=== PATIENT | female | born 1960 | race Caucasian/White ===

== ENCOUNTER 2020-05-03 16:07 | Emergency (ER) | payer MEDICARE, MEDICAID, SELFPAY ==
--- NOTE | 2020-05-03 | ECG_ITS ---
Test Reason : CHEST PAIN Blood Pressure : / mmHG Vent. Rate : 095 BPM Atrial Rate : 095 BPM P-R Int : 140 ms QRS Dur : 070 ms QT Int : 392 ms P-R-T Axes : 001 -22 044 degrees QTc Int : 492 ms Normal sinus rhythm Prolonged QT Abnormal ECG When compared with ECG of 10-MAR-2020 12:06, No significant change was found Referred By: Ronald Young Electronically Signed By:BAKARI GATES
[2020-05-03 16:30] VITALS: BP 206/115; BP 217/111; PULSE 98; RESP 20; TEMP 36.3; O2SAT 98; BMI 25.2
--- NOTE | 2020-05-03 17:04 | ED.CHESTPAIN ---
HPI - Chest Pain General Chief Complaint: Chest Pain Time Seen by Provider: 05/03/20 17:02 Source: patient Mode of arrival: ambulatory History of Present Illness HPI narrative: 60-year-old female states of headache chest pain and leg pain and body pain. For the past several days. Patient states was taken off Vicodin several years ago and her pain goes in waves. She states this is the same type of pain she gets chronically however right now it is acute. No diaphoresis no nausea no vomiting. Patient did have dialysis today came in shortly afterwards secondary to full body pain. No fevers no chills. No syncope or dizziness. Patient states primary care doctor took her off her medications and since then has been having to deal with pain Severity: severe Quality: aching Related Data Previous Rx's Medication Instructions Recorded hydrocodone-acetaminophen [Vicodin 1 tab PO BEDTIME PRN #7 tab 05/04/20 HP] Allergies Allergy/AdvReac Type Severity Reaction Status Date / Time heparin [HEPARIN] Allergy Severe HEPARIN-INDUCED Unverified 04/15/20 17:05 THROMBOCYTOPENIA adhesive tape [ADHESIVE TAPE] Allergy Intermediate LOCALIZED Unverified 04/15/20 17:05 BLISTER morphine [MORPHINE] Allergy Intermediate GI UPSET Unverified 04/15/20 17:05 Review of Systems Review of Systems: Yes all other systems are reviewed and are negative Constitutional: Comments: Constitutional : No Weight loss, No Fever, No Chills, No Night Sweats, No Fatigue, No Malaise ENT/Mouth : No Hearing loss, No Ear Pain, No Nasal Congestion, No Sinus Pain, No Hoarseness, No sore throat, No Rhinorrhea, No Swallowing Difficulty Eyes: No Eye Pain, No Swelling, No Redness, No Foreign Body, No Discharge, No Vision Changes Cardiovascular : No Chest Pain, No SOB, No Dyspnea on Exertion, No Orthopnea, No Edema, No Palpitations right-sided Port Respiratory : No Cough, No Sputum, No Wheezing, No Smoke Exposure, No Dyspnea Gastrointestinal : No Nausea, No Vomiting, No Diarrhea, No Constipation, No abdominal Pain, No Hematochezia, No Melena Genitourinary : no irregular bleeding, No Dysuria, No Urinary Frequency, No Hematuria, No Urinary Incontinence, No Urgency, No Flank Pain, No Urinary Flow Changes, No Hesitancy Musculoskeletal : No joint pain, No Myalgias, No Joint Swelling Skin : No Skin Lesions, No rash Neuro : No Weakness, No Numbness, No Paresthesias, No Loss of Consciousness, No Dizziness, No Headache Psych : No Anxiety/Panic, No Depression, No SI/HI/AH/VH, No Social Issues, Heme/Lymph: No Bruising, No Bleeding,No Lymphadenopathy Endocrine : No Polyuria, No Polydipsia, No Temperature Intolerance [facility] Past Medical History Medical History CHF (congestive heart failure) Chronic renal failure Diabetes mellitus, type 2 Hypertension Seizures Social History Social History Smoked in Last 30 Days: No Use of substances other than those prescribed or required for medical reasons: No Any prior treatment program specific to substance use: No Advance Directives: No Advance Directives Information Provided: No Physical Exam Vital Signs and I&O and Narrative: Vital Signs and I&O: Vital Signs Temp 98.9 F 05/03/20 17:09 Pulse 82 05/03/20 23:35 Resp 25 H 05/03/20 23:35 BP 205/97 H 05/03/20 23:35 Pulse Ox 98 05/03/20 22:42 Intake & Output 05/03/20 05/03/20 05/04/20 06:59 18:59 06:59 Weight 54.913 kg Body Mass Index 25.2 reviewed Appearance: Alert. Oriented X3. No acute distress. Eyes: Pupils equal, round and reactive to light. ENT: Pharynx normal. Neck: Normal inspection. Neck supple. CVS: Normal heart rate and rhythm. Pulses normal. right-sided Port Respiratory: No respiratory distress. Breath sounds normal. Abdomen: Soft and nontender. Skin: Skin warm and dry. Normal skin color. Normal skin turgor. Extremities: No lower extremity edema. No lower extremity edema. Neuro: Oriented X 3. No motor deficit. No sensory deficit. Course Course Course Narrative: patient with acute on chronic pain. Patient also states of itchiness all over and she normally has after dialysis and will give Benadryl and p.o. Vicodin patient noted blood pressure is above 200 systolic will give IV labetalol. Reevaluation(s) Reevaluation #1: Re-examine patient feels much better. Patient did receive some p.o. pain medications in which also had labs returned normal and repeat troponin which was negative. I do not feel this patient has acute coronary syndrome. I feel this patient does have acute on chronic pain exacerbation. Secondary to having stopped her pain medications Time: 00:31 [facility] - Chest Pain Medical Records Data Attestation: I reviewed the patient's medical records. Lab Data Attestation: I reviewed the patient's lab results. Result diagrams: 05/03/20 20:15 05/03/20 20:15 Labs: Lab Results 05/03/20 05/03/20 05/03/20 Range/Units 20:15 20:15 20:15 WBC 15.1 H (4.8-10.8) X10*3/uL RBC 3.55 L (4.20-5.50) X10*6/uL Hgb 11.2 L (12.0-16.0) g/dl Hct 33.9 L (37-47) % MCV 95.5 (80-98) fL MCH 31.5 (27.0-33.0) pg MCHC 33.0 (31.0-35.0) g/dl RDW 14.9 (11.0-16.0) % Plt Count 178 (160-400) X10*3/uL MPV 10.2 (9.4-12.3) fL Immature Gran % (Auto) 1.7 H (0.0-0.4) % Neut % (Auto) 69.9 (45-73) % Lymph % (Auto) 18.4 L (20-40) % [place] % (Auto) 8.0 (2-11) % Eos % (Auto) 1.5 (0-4) % Baso % (Auto) 0.5 (0-2) % Neut # (Auto) 10.6 H (2.0-8.3) X10*3/uL Lymph # (Auto) 2.8 (1.2-4.9) X10*3/uL [place] # (Auto) 1.2 (0.1-1.2) X10*3/uL Eos # (Auto) 0.2 (0.0-0.4) X10*3/uL Baso # (Auto) 0.1 (0.0-0.2) X10*3/uL Abs Immat Gran (auto) 0.25 H (0.00-0.03) X10*3/uL Absolute Nucleated RBC 0.110 H (0.0-0.012) X10*3/uL Nucleated RBC % (auto) 0.7 H (0.0-0.2) /100WBC Sodium 137 (135-145) mmol/L Potassium 3.9 (3.3-5.1) mmol/l Chloride 97 (96-108) mmol/L Carbon Dioxide 28 (22-29) mmol/L Anion Gap 16 (12-20) BUN 25 H (9-16) mg/dL Creatinine 2.69 H (0.5-1.4) mg/dL Estim Creat Clear Calc 16.7 Estimated GFR 18 Random Glucose 133 H (60-115) mg/dL Calcium 8.8 (8.4-10.2) mg/dL Troponin I High Sens 42.8 H (<3.5-17.0) ng/L 05/03/20 Range/Units 23:47 WBC (4.8-10.8) X10*3/uL RBC (4.20-5.50) X10*6/uL Hgb (12.0-16.0) g/dl Hct (37-47) % MCV (80-98) fL MCH (27.0-33.0) pg MCHC (31.0-35.0) g/dl RDW (11.0-16.0) % Plt Count (160-400) X10*3/uL MPV (9.4-12.3) fL Immature Gran % (Auto) (0.0-0.4) % Neut % (Auto) (45-73) % Lymph % (Auto) (20-40) % [place] % (Auto) (2-11) % Eos % (Auto) (0-4) % Baso % (Auto) (0-2) % Neut # (Auto) (2.0-8.3) X10*3/uL Lymph # (Auto) (1.2-4.9) X10*3/uL [place] # (Auto) (0.1-1.2) X10*3/uL Eos # (Auto) (0.0-0.4) X10*3/uL Baso # (Auto) (0.0-0.2) X10*3/uL Abs Immat Gran (auto) (0.00-0.03) X10*3/uL Absolute Nucleated RBC (0.0-0.012) X10*3/uL Nucleated RBC % (auto) (0.0-0.2) /100WBC Sodium (135-145) mmol/L Potassium (3.3-5.1) mmol/l Chloride (96-108) mmol/L Carbon Dioxide (22-29) mmol/L Anion Gap (12-20) BUN (9-16) mg/dL Creatinine (0.5-1.4) mg/dL Estim Creat Clear Calc Estimated GFR Random Glucose (60-115) mg/dL Calcium (8.4-10.2) mg/dL Troponin I High Sens 43.7 H (<3.5-17.0) ng/L ECG Data ECG #1: Attestation: I personally reviewed and interpreted this ECG as follows: Pacemaker model: Ninety-five beats per minute is the rate. Rightward axis. Normal sinus Discharge Plan Discharge Clinical Impression: Chronic pain Qualifiers: Chronic pain type: chronic pain syndrome Qualified Code(s): G89.4 - Chronic pain syndrome Chest pain Qualifiers: Chest pain type: other chest pain Qualified Code(s): R07.89 - Other chest pain Patient Disposition: Home, Self-Care Instructions: Chest Pain (ED), Chronic Pain (ED) Additional Instructions: Thank you for visiting the emergency department today. If your symptoms worsen or do not resolve completely please return to the emergency department immediately or call 911. if he have any questions please call your primary care physician Prescriptions: New hydrocodone-acetaminophen [Vicodin HP] 10-300 mg tablet 1 tab PO BEDTIME PRN (Reason: pain) Qty: 7 RF: 0 Referrals: [facility] [Provider Group] - 2 days Interventions: ED Discharge Assessment Last Done: 05/04/20 02:00 Discharge Date/Time: 05/04/20 02:02
[2020-05-03 17:09] VITALS: BP 212/107; PULSE 94; RESP 20; TEMP 37.2; O2SAT 98
[2020-05-03 18:47] VITALS: BP 230/111; PULSE 93
[2020-05-03] MEDS: Labetalol HCL 100 MG/20 ML VIAL 20 MG IVPUSH (18:47)
[2020-05-03] MEDS: HYDROcodone Bit/Acetam 5/325 TABLET 2 TAB PO (18:48)
[2020-05-03] MEDS: diphenhydrAMINE HCL 25 MG TABLET PO (18:48)
[2020-05-03 20:21] LABS: MANUAL DIFF FLAG NO
[2020-05-03 20:22] LABS: Basophils Absolute Auto 0.1 X10*3/uL (0.0-0.2); Basophils Percent Auto 0.5 % (0-2); Eosinophils Absolute Auto 0.2 X10*3/uL (0.0-0.4); Eosinophils Percent Auto 1.5 % (0-4); Hematocrit 33.9 % (37-47); Hemoglobin 11.2 g/dl (12.0-16.0); Imm Gran Abs Auto 0.25 X10*3/uL (0.00-0.03); Imm Gran Pct Auto 1.7 % (0.0-0.4); Lymphocytes Absolute Auto 2.8 X10*3/uL (1.2-4.9); Lymphocytes Percent Auto 18.4 % (20-40); Mean Corpuscular Hemoglobin 31.5 pg (27.0-33.0); Mean Corpuscular Volume 95.5 fL (80-98); Mean Platelet Volume 10.2 fL (9.4-12.3); Monocytes Absolute Auto 1.2 X10*3/uL (0.1-1.2); NRBC Pct Auto 0.7 /100WBC (0.0-0.2); Neutrophils Absolute Auto 10.6 X10*3/uL (2.0-8.3); Neutrophils Percent Auto 69.9 % (45-73); Platelet Count 178 X10*3/uL (160-400); Red Blood Count 3.55 X10*6/uL (4.20-5.50); Red Cell Distribution Width 14.9 % (11.0-16.0); White Blood Count 15.1 X10*3/uL (4.8-10.8)
[2020-05-03 20:50] LABS: Anion Gap 16 (12-20); Blood Urea Nitrogen 25 mg/dL (9-16); Calcium 8.8 mg/dL (8.4-10.2); Carbon Dioxide 28 mmol/L (22-29); Chloride 97 mmol/L (96-108); Creatinine Clr Calc Pharmacy 16.7; Estimated Glomerular Filt Rate 18; Glucose Random 133 mg/dL (60-115); Potassium 3.9 mmol/l (3.3-5.1); Sodium 137 mmol/L (135-145)
[2020-05-03 21:08] LABS: Troponin-I High Sensitivity 42.8 ng/L (<3.5-17.0)
[2020-05-03 21:10] VITALS: BP 169/80; PULSE 81; RESP 14; O2SAT 96
[2020-05-03 22:42] VITALS: BP 185/82; PULSE 82; RESP 16; O2SAT 98
--- NOTE | 2020-05-03 22:49 | PC.NURSE ---
plan for repeat troponin at 11:15
--- NOTE | 2020-05-03 22:51 | PC.NURSE ---
spoke to son regarding patient status. states he will call back at midnight for more information after repeat troponin
[2020-05-03 23:35] VITALS: BP 205/97; PULSE 82; RESP 25
--- NOTE | 2020-05-03 23:36 | PC.NURSE ---
pt given sandwich, pudding and coffee. pt in no distress, watching tv. repeat troponin being drawn.
[2020-05-04 00:25] LABS: Troponin-I High Sensitivity 43.7 ng/L (<3.5-17.0)
== END 2020-05-04 02:02 | disposition home or self-care (01) ==
PROVIDERS: Emergency Provider Emergency Medicine
DX: G89.4 Chronic pain syndrome (principal); R07.89 Other chest pain; I10 Essential (primary) hypertension; E11.9 Type 2 diabetes mellitus without complications; Z79.899 Other long term (current) drug therapy
CPT/HCPCS: 36415; 80048; 84484; 85025; 93005; 93010; 96374; 99285; Q0163

== ENCOUNTER 2020-05-25 12:20 | Emergency (ER) | payer MEDICARE, MEDICAID, SELFPAY ==
[2020-05-25 12:43] VITALS: BP 196/69; PULSE 91; RESP 16; TEMP 36.9; O2SAT 99; BMI 26.8
--- NOTE | 2020-05-25 13:35 | ED_ITS ---
HPI - General Adult General Chief complaint: General Medical Stated complaint: BLEEDING AT SITE, HIGH BS Time Seen by Provider: 05/25/20 13:35 Source: patient and EMS Mode of arrival: EMS Limitations: no limitations History of Present Illness HPI narrative: 52-year-old female with past medical history that is significant for PAST MEDICAL HISTORY: 1. End-stage renal disease on hemodialysis Sunday, Sunday, Sunday. 2. History of HIT. 3. History of stroke with residual left-sided weakness. 4. Insulin-requiring type 2 diabetes. 5. Hypertension. 6. Dyslipidemia. 7. Fibromyalgia. 8. History of legal blindness. 9. Depression. 10. Heart failure with preserved ejection fraction. 11. Remote history of seizure activity, previously on Trileptal. 12. Recent admission in September 2019 for seizure, thought to be related to hypoglycemia in the setting of a point of care of 25. 13. History of ptosis and amblyopia of the left eye. PAST SURGICAL HISTORY: 1. Multiple C-sections. 2. Right eye cataract extraction. she saw endovascular surgery today for replacement her right PermCath which she had done 3 hours prior to arrival states she got home after and notice some slight bleeding from the site. States this made her concerned and called her dialysis center who told her to come to the emergency room. Patient very limited historian in terms of she does not know who did the PermCath and does not know the dialysis center she goes to but knows the address. She otherwise denies any pain discomfort. No shortness of breath. Onset (ago): hour(s) Treatments prior to arrival: none Related Data Previous Rx's Medication Instructions Recorded hydrocodone-acetaminophen [Vicodin 1 tab PO BEDTIME PRN #7 tab 05/04/20 HP] Allergies Allergy/AdvReac Type Severity Reaction Status Date / Time heparin [HEPARIN] Allergy Severe HEPARIN-INDUCED Unverified 04/15/20 17:05 THROMBOCYTOPENIA adhesive tape [ADHESIVE TAPE] Allergy Intermediate LOCALIZED Unverified 04/15/20 17:05 BLISTER morphine [MORPHINE] Allergy Intermediate GI UPSET Unverified 04/15/20 17:05 warfarin Allergy Mild Unknown Verified 05/25/20 12:42 Review of Systems Review of Systems: Constitutional: No Weight loss, No Fever, No Chills, No Night Sweats, No Fatigue, No Malaise ENT/Mouth: No Hearing loss, No Ear Pain, No Nasal Congestion, No Sinus Pain, No Hoarseness, No sore throat, No Rhinorrhea, No Swallowing Difficulty Eyes: No Eye Pain, No Swelling, No Redness, No Foreign Body, No Discharge, No Vision Changes Cardiovascular: No Chest Pain, No SOB, No Dyspnea on Exertion, No Orthopnea, No Edema, No Palpitations Respiratory: No Cough, No Sputum, No Wheezing, No Smoke Exposure, No Dyspnea Gastrointestinal: No Nausea, No Vomiting, No Diarrhea, No Constipation, No abdominal Pain, No Hematochezia, No Melena Genitourinary: no irregular bleeding, No Dysuria, No Urinary Frequency, No He maturia, No Urinary Incontinence, No Urgency, No Flank Pain, No Urinary Flow Changes, No Hesitancy Musculoskeletal: No joint pain, No Myalgias, No Joint Swelling Skin: No Skin Lesions, No rash Neuro: No Weakness, No Numbness, No Paresthesias, No Loss of Consciousness, No Dizziness, No Headache Heme/Lymph: No Bruising, No Bleeding,No Lymphadenopathy Endocrine: No Polyuria, No Polydipsia, No Temperature Intolerance Yes all other systems are reviewed and are negative [facility] Past Medical History Attestation statement: The following information was validated with the patient. Medical History CHF (congestive heart failure) Chronic renal failure Diabetes mellitus, type 2 Hypertension Seizures Surgical History H/O section H/O removal of cyst History of carpal tunnel surgery of left wrist History of phacoemulsification of cataract of right eye with intraocular lens implantation Family History Family History (Updated 05/06/20 @ 08:25 by Trish Echavarria MA) Father Arthritis Mother Cancer Diabetes Brother No problems noted. Sister No problems noted. Sister No problems noted. Son No problems noted. Son No problems noted. Daughter No problems noted. Daughter No problems noted. Daughter Thyroid condition Social History Social History (Updated 05/06/20 @ 08:26 by Trish Echavarria MA) Alcohol intake: unknown Smoking Status: Never smoker Use of substances other than those prescribed or required for medical reasons: No Advance Directives: No Advance Directives Information Provided: No Physical Exam Vital Signs: Vital Signs: Vital Signs Temp Pulse Resp BP Pulse Ox 05/25/20 15:11 85 18 140/117 H 05/25/20 12:43 98.5 F 91 16 196/69 H 99 Body Mass Index 26.8 Reviewed Const: General: cooperative and healthy appearing; No acute distress or in toxicated appearing Nutritional Appearance: average body habitus Orientation/consciousness: patient oriented x3 HENMT: Head: Yes normal to inspection Ears: hearing grossly normal bilaterally Eyes: General: appearance normal, both eyes and all related structures Visual Magana: normal visual magana by confrontation Neck: Neck: Yes normal visual inspection and No tender Thyroid: Thyroid normal Chest: Chest palpation & inspection: normal inspection of the chest Chest/axillae images: 1. site of PermCath. No active bleeding. Slight hematoma just superior to the incision site. Resp: Effort & Inspection: normal respiratory effort Cardio: Jugular venous distension: no JVD GI: Inspection: Yes normal to inspection Percussion: Yes normal to percussion Auscultation: normal bowel sounds Skin: General skin exam: no rashes or lesions noted Neuro: General: patient oriented x3 Extrem: General: Yes normal to inspection Course Course Course Narrative: Offers no complaints here. Uncomfortable. POC at home prior to arrival was 200. Chest x-ray no acute disease / pneumo. Were guided replacement of right-sided PermCath with. Slight hematoma to the right chest wall/ case discussed with vascular surgery follow-up in office okay for dialysis use. RN called dialysis center has appointment in the morning. Consultations Consultation #1: Case discussed with endovascular surgeon Dr. Schneider; were guided primary catheterization did use tPA as she has heparin allergy. slight hematoma to be expected, aware no active bleeding at this time. Okay for use of primary CT with dialysis and to follow-up in the office. Medical Decision Making Lab Data Result diagrams: 05/25/20 14:24 05/25/20 14:24 Labs: Lab Results 05/25/20 05/25/20 Range/Units 14:24 14:24 WBC 9.8 (4.8-10.8) X10*3/uL RBC 2.97 L (4.20-5.50) X10*6/uL Hgb 9.3 L (12.0-16.0) g/dl Hct 27.8 L (37-47) % MCV 93.6 (80-98) fL MCH 31.3 (27.0-33.0) pg MCHC 33.5 (31.0-35.0) g/dl RDW 14.9 (11.0-16.0) % Plt Count 120 L D (160-400) X10*3/uL MPV Not Reportable Immature Gran % (Auto) 0.5 H (0.0-0.4) % Neut % (Auto) 69.8 (45-73) % Lymph % (Auto) 20.5 (20-40) % [place] % (Auto) 6.5 (2-11) % Eos % (Auto) 2.1 (0-4) % Baso % (Auto) 0.6 (0-2) % Lymph # (Auto) 2.0 (1.2-4.9) X10*3/uL [place] # (Auto) 0.6 (0.1-1.2) X10*3/uL Eos # (Auto) 0.2 (0.0-0.4) X10*3/uL Baso # (Auto) 0.1 (0.0-0.2) X10*3/uL Abs Immat Gran (auto) 0.05 H (0.00-0.03) X10*3/uL Absolute Neuts (auto) 6.9 (2.0-8.3) X10*3/uL Absolute Nucleated RBC 0.000 (0.0-0.012) X10*3/uL Nucleated RBC % (auto) 0.0 (0.0-0.2) /100WBC Smear Tech's Comments VERIFIED Sodium Cancelled Potassium Cancelled Chloride Cancelled Carbon Dioxide Cancelled Anion Gap Cancelled BUN Cancelled Creatinine Cancelled Estim Creat Clear Calc Cancelled Estimated GFR Cancelled Random Glucose Cancelled Calcium Cancelled Total Bilirubin Cancelled AST Cancelled ALT Cancelled Alkaline Phosphatase Cancelled Total Protein Cancelled Albumin Cancelled Discharge Plan Discharge Clinical Impression: Visit for wound check Patient Disposition: Home, Self-Care Instructions: Hematoma (ED), Perma-cath Placement (DC) Additional Instructions: Dry sterile dressing Compresses Follow-up with Dr. Schneider's office Have dialysis tomorrow Return if any concerns or worsening symptoms Thank you Prescriptions: No Action hydrocodone-acetaminophen [Vicodin HP] 10-300 mg tablet 1 tab PO BEDTIME PRN (Reason: pain) Qty: 7 RF: 0 Referrals: Physician,Unknown [Primary Care Provider] - 2 days ( Dr. Lissett Rojo ) Interventions: ED Discharge Assessment Last Done: 05/25/20 16:00
--- NOTE | 2020-05-25 13:46 | XR_ITS ---
EXAMINATION: XR CHEST CLINICAL INFORMATION: Right-sided permacath COMPARISON: None TECHNIQUE: 2 views of the chest were obtained. FINDINGS: Both lungs are fairly well-expanded and clear of acute process. Heart size and pulmonary vascularity is normal. There is right central dialysis catheter with its tip in the right atrium. No gross bony abnormality seen. XR/XR chest 2V IMPRESSION: Unremarkable chest exam.
[2020-05-25 14:51] LABS: Basophils Absolute Auto 0.1 X10*3/uL (0.0-0.2); Basophils Percent Auto 0.6 % (0-2); Eosinophils Absolute Auto 0.2 X10*3/uL (0.0-0.4); Eosinophils Percent Auto 2.1 % (0-4); Hematocrit 27.8 % (37-47); Hemoglobin 9.3 g/dl (12.0-16.0); Imm Gran Abs Auto 0.05 X10*3/uL (0.00-0.03); Imm Gran Pct Auto 0.5 % (0.0-0.4); Lymphocytes Percent Auto 20.5 % (20-40); MANUAL DIFF FLAG SCAN; Mean Corpuscular HGB Conc 33.5 g/dl (31.0-35.0); Mean Corpuscular Hemoglobin 31.3 pg (27.0-33.0); Mean Corpuscular Volume 93.6 fL (80-98); Monocytes Absolute Auto 0.6 X10*3/uL (0.1-1.2); Monocytes Percent Auto 6.5 % (2-11); Neutrophils Absolute Auto 6.9 X10*3/uL (2.0-8.3); Neutrophils Percent Auto 69.8 % (45-73); PLT CLUMP 1; Red Blood Count 2.97 X10*6/uL (4.20-5.50); Red Cell Distribution Width 14.9 % (11.0-16.0); SCAN SMEAR FLAG 1
[2020-05-25 15:11] VITALS: BP 140/117; PULSE 85; RESP 18
[2020-05-25 15:35] LABS: Platelet Count 120 X10*3/uL (160-400); White Blood Count 9.8 X10*3/uL (4.8-10.8)
[2020-05-25 15:37] LABS: SLIDE REVIEW VERIFIED
== END 2020-05-25 17:12 | disposition home or self-care (01) ==
PROVIDERS: Nurse Practitioner Primary Care; Emergency Provider Emergency Medicine
DX: Z48.01 Encounter for change or removal of surgical wound dressing (principal); Z79.899 Other long term (current) drug therapy
CPT/HCPCS: 36415; 71046; 85025; 99283; 99284

== ENCOUNTER 2020-06-29 02:54 | Inpatient (IN) | payer MEDICARE, MEDICAID, SELFPAY ==
[2020-06-29] VITALS (12 sets, daily range): BP systolic 135–180; BP diastolic 58–89; PULSE 81–98; RESP 15–19; TEMP 36.4–37.7; O2SAT 96–100; BMI 20.3
--- NOTE | 2020-06-29 03:46 | ECG_ITS ---
Test Reason : BASELINE Blood Pressure : / mmHG Vent. Rate : 099 BPM Atrial Rate : 099 BPM P-R Int : 136 ms QRS Dur : 072 ms QT Int : 382 ms P-R-T Axes : 005 -34 099 degrees QTc Int : 490 ms Normal sinus rhythm Left axis deviation Nonspecific ST and T wave abnormality Prolonged QT Abnormal ECG When compared with ECG of 03-MAY-2020 17:01, Inverted T waves have replaced nonspecific T wave abnormality in Lateral leads Referred By: Amita Rojas Electronically Signed By:JASIEL HERBERT MD
--- NOTE | 2020-06-29 03:47 | XR_ITS ---
EXAMINATION: XR CHEST CLINICAL INFORMATION: Dialysis catheter removed COMPARISON: 05/25/2020 TECHNIQUE: Frontal view of the chest was obtained. FINDINGS: Lung volumes are symmetric. No focal consolidation is seen. No evidence of pneumothorax, pleural effusion, or pulmonary edema. Cardiac size is within normal limits. Calcification is present at the aortic arch. No acute osseous findings are seen. XR/XR chest 1V IMPRESSION: No acute cardiopulmonary findings.
[2020-06-29 04:23] LABS: Basophils Absolute Auto 0.1 X10*3/uL (0.0-0.2); Basophils Percent Auto 0.4 % (0-2); Eosinophils Percent Auto 0.1 % (0-4); Hematocrit 35.3 % (37-47); Hemoglobin 11.9 g/dl (12.0-16.0); Imm Gran Abs Auto 0.13 X10*3/uL (0.00-0.03); Imm Gran Pct Auto 0.6 % (0.0-0.4); Lymphocytes Absolute Auto 1.7 X10*3/uL (1.2-4.9); Lymphocytes Percent Auto 7.3 % (20-40); MANUAL DIFF FLAG NO; Mean Corpuscular HGB Conc 33.7 g/dl (31.0-35.0); Mean Corpuscular Hemoglobin 31.6 pg (27.0-33.0); Mean Corpuscular Volume 93.9 fL (80-98); Mean Platelet Volume 11.3 fL (9.4-12.3); Monocytes Absolute Auto 1.3 X10*3/uL (0.1-1.2); Monocytes Percent Auto 5.8 % (2-11); Neutrophils Absolute Auto 19.5 X10*3/uL (2.0-8.3); Neutrophils Percent Auto 85.8 % (45-73); Platelet Count 192 X10*3/uL (160-400); Red Blood Count 3.76 X10*6/uL (4.20-5.50); Red Cell Distribution Width 15.1 % (11.0-16.0); White Blood Count 22.7 X10*3/uL (4.8-10.8)
[2020-06-29 04:43] LABS: Lactic Acid 1.2 mmol/L (0.5-2.0)
[2020-06-29 04:48] LABS: Glucose, Whole Blood 295 mg/dL (60-115)
[2020-06-29 04:54] LABS: Alanine Aminotransferase 12 U/L (0-31); Alkaline Phosphatase 98 U/L (39-117); Anion Gap 20 (12-20); Aspartate Amino Transferase 25 U/L (5-31); Bilirubin Total 0.5 mg/dL (0.0-1.0); Blood Urea Nitrogen 28 mg/dL (9-16); Calcium 9.2 mg/dL (8.4-10.2); Carbon Dioxide 26 mmol/L (22-29); Chloride 89 mmol/L (96-108); Creatinine Clr Calc Pharmacy 16.2; Estimated Glomerular Filt Rate 15; Glucose Random 294 mg/dL (60-115); Lipase 23 U/L (8-78); Potassium 3.9 mmol/l (3.3-5.1); Sodium 131 mmol/L (135-145); Total Protein 8.3 g/dL (6.5-8.0)
--- NOTE | 2020-06-29 04:58 | ED_ITS ---
HPI - General Adult General Chief complaint: General Medical Stated complaint: Dialysis port fell out Time Seen by Provider: 06/29/20 03:46 Source: patient and family ( daughter) Mode of arrival: ambulatory Limitations: no limitations History of Present Illness HPI narrative: This is a 60-year-old female with extensive past medical history of end-stage renal disease on dialysis and had dialysis therapy yesterday via dialysis catheter that at that time was located in the right anterior chest. Patient states that the catheter fell out because it was not attached properly. She denies any associated fevers, chills but is experiencing nausea and vomiting. Related Data Home Medications Medication Instructions Recorded Confirmed bumetanide 1 mg tablet 1 mg PO DAILY 06/03/20 06/29/20 cholecalciferol (vitamin D3) 50 50 mcg PO DAILY 06/03/20 06/29/20 mcg (2,000 unit) capsule diphenhydramine HCl 25 mg capsule 50 mg PO DAILY PRN 06/03/20 06/29/20 insulin aspart U-100 100 unit/mL 8 unit SUBCUT TID 06/03/20 06/29/20 subcutaneous solution insulin detemir U-100 100 unit/mL 26 unit SUBCUT DAILY 06/03/20 06/29/20 subcutaneous solution insulin syringe-needle U-100 0.3 #10 ea 06/03/20 06/03/20 mL 31 gauge x 16 lisinopril 5 mg tablet 20 mg PO BEDTIME 06/03/20 06/29/20 quetiapine 200 mg tablet 200 mg PO BEDTIME 06/03/20 06/29/20 sevelamer carbonate 800 mg tablet 800 mg PO TID 06/03/20 06/29/20 trazodone 100 mg tablet 100 mg PO BEDTIME 06/03/20 06/29/20 vitamin B complex and vitamin C 1 cap PO DAILY 06/03/20 06/29/20 no.20-folic acid 1 mg capsule Previous Rx's Medication Instructions Recorded hydrocodone-acetaminophen [Vicodin 1 tab PO BEDTIME PRN #7 tab 05/04/20 HP] pravastatin 40 mg tablet 40 mg PO DAILY #90 tab 06/08/20 Allergies Allergy/AdvReac Type Severity Reaction Status Date / Time heparin [HEPARIN] Allergy Severe HEPARIN-INDUCED Verified 06/29/20 07:33 THROMBOCYTOPENIA adhesive tape [ADHESIVE TAPE] Allergy Intermediate LOCALIZED Verified 06/29/20 07:33 BLISTER morphine [MORPHINE] Allergy Intermediate GI UPSET Verified 06/29/20 07:33 warfarin Allergy Mild Unknown Verified 06/29/20 07:33 Review of Systems Review of Systems: Pertinent positives and negatives as stated in HPI 10 point review of systems otherwise negative. PMFSH Past Medical History Source: nursing notes reviewed Medical History CHF (congestive heart failure) Chronic renal failure Diabetes mellitus, type 2 Hypertension Seizures Surgical History H/O section H/O removal of cyst History of carpal tunnel surgery of left wrist History of phacoemulsification of cataract of right eye with intraocular lens implantation Family History Family History Father Arthritis Mother Cancer Diabetes Brother No problems noted. Sister No problems noted. Sister No problems noted. Son No problems noted. Son No problems noted. Daughter No problems noted. Daughter No problems noted. Daughter Thyroid condition Social History Social History Alcohol intake: never Smoking Status: Former smoker Use of substances other than those prescribed or required for medical reasons: No Advance Directives: No Advance Directives Information Provided: Yes Physical Exam Vital Signs: Vital Signs: Last Vital Signs Temp 98.6 F 06/29/20 06:51 Pulse 95 06/29/20 06:51 Resp 18 06/29/20 06:51 BP 140/69 H 06/29/20 06:51 Pulse Ox 100 06/29/20 06:51 Body Mass Index 20.3 VITAL SIGNS: Reviewed. GENERAL: Well developed, well nourished, in no acute distress. HEAD: Normocephalic/atraumatic, EYES: PERRLA, EOMI intact without pain, no nystagmus/pallor/icterus noted EARS: Ext canals without abnormality, TMs non-bulging and non-erythematous NOSE: Nares patent bilateral OROPHARYNX: no oral lesions noted, posterior pharynx clear and non-erythematous without noted tonsillar enlargement/erythema/exudates NECK: Supple, no adenopathy LUNGS: Normal breath sounds. No adventitious sounds or accessory muscle use. SpO2<100> CHEST WALL: At the right anterior chest there is a significantly macerated, indurated area at the insertion site where the dialysis catheter was previously located with pus draining and further expressed on palpation. Patient brought dialysis catheter in with her. CARDIOVASCULAR: Regular rate and rhythm without noted murmurs, no JVD or lower extremity edema. ABDOMEN: Soft, non-tender, non-distended with bowel sounds. No rigidity. No guarding. No palpable masses or hernias noted MUSCULOSKELETAL: No tenderness, deformities, or effusions noted on gross inspection. EXTREMITIES: No cyanosis, clubbing or edema. SKIN: Inspection of the skin reveals no rashes, ulcerations, jaundice, pallor, or petechiae. NEUROLOGIC: Alert and oriented x 4. Strength and sensation to light touch were grossly intact x 4. Course Course Course Narrative: This is a 60-year-old female with history and clinical presentation concerning for line infection and further supported with a noted leukocytosis and obvious purulence on clinical exam. Blood cultures, lactic acid, antibiotics were provided but sepsis fluids were held at this time due to concerns for fluid overload in a dialysis patient without current dialysis access. I discussed case with the inpatient hospitalist team who is agreeable for admission and agrees with chest CT to evaluate chest wall. Medical Decision Making Lab Data Result diagrams: 06/29/20 04:15 06/29/20 04:16 Labs: Lab Results 06/29/20 06/29/20 06/29/20 Range/Units 04:15 04:15 04:16 WBC 22.7 H (4.8-10.8) X10*3/uL RBC 3.76 L D (4.20-5.50) X10*6/uL Hgb 11.9 L D (12.0-16.0) g/dl Hct 35.3 L D (37-47) % MCV 93.9 (80-98) fL MCH 31.6 (27.0-33.0) pg MCHC 33.7 (31.0-35.0) g/dl RDW 15.1 (11.0-16.0) % Plt Count 192 D (160-400) X10*3/uL MPV 11.3 (9.4-12.3) fL Immature Gran % (Auto) 0.6 H (0.0-0.4) % Neut % (Auto) 85.8 H (45-73) % Lymph % (Auto) 7.3 L (20-40) % [place] % (Auto) 5.8 (2-11) % Eos % (Auto) 0.1 (0-4) % Baso % (Auto) 0.4 (0-2) % Lymph # (Auto) 1.7 (1.2-4.9) X10*3/uL [place] # (Auto) 1.3 H (0.1-1.2) X10*3/uL Eos # (Auto) 0.0 (0.0-0.4) X10*3/uL Baso # (Auto) 0.1 (0.0-0.2) X10*3/uL Abs Immat Gran (auto) 0.13 H (0.00-0.03) X10*3/uL Absolute Neuts (auto) 19.5 H (2.0-8.3) X10*3/uL Absolute Nucleated RBC 0.000 (0.0-0.012) X10*3/uL Nucleated RBC % (auto) 0.0 (0.0-0.2) /100WBC Sodium 131 L (135-145) mmol/L Potassium 3.9 (3.3-5.1) mmol/l Chloride 89 L (96-108) mmol/L Carbon Dioxide 26 (22-29) mmol/L Anion Gap 20 (12-20) BUN 28 H (9-16) mg/dL Creatinine 3.20 H (0.5-1.4) mg/dL Estim Creat Clear Calc 16.2 Estimated GFR 15 POC Glucose (60-115) mg/dL Random Glucose 294 H D (60-115) mg/dL Lactic Acid 1.2 (0.5-2.0) mmol/L Calcium 9.2 (8.4-10.2) mg/dL Total Bilirubin 0.5 (0.0-1.0) mg/dL AST 25 (5-31) U/L ALT 12 (0-31) U/L Alkaline Phosphatase 98 (39-117) U/L Total Protein 8.3 H (6.5-8.0) g/dL Albumin 4.0 (3.5-5.0) g/dL Lipase 23 (8-78) U/L Urine Color Urine Appearance Urine pH (5.0-8.0) Ur Specific [place] (1.005-1.025) Urine Protein (NEG-TRACE) MG/DL Urine Glucose (UA) (NEG) MG/DL Urine Ketones (NEG) MG/DL Urine Blood (NEG) Urine Nitrite (NEG) Ur Leukocyte Esterase (NEG) Urine RBC (0) /HPF Urine WBC (0-4) /HPF Ur Squamous Epith Cells /LPF Urine Bacteria /LPF Urine Mucus /LPF Coronavirus (PCR) (Negative) Influenza Type A (PCR) (Negative) Influenza Type B (PCR) (Negative) RSV RNA Qual (PCR) (Negative) 06/29/20 06/29/20 06/29/20 Range/Units 04:44 05:17 06:49 WBC (4.8-10.8) X10*3/uL RBC (4.20-5.50) X10*6/uL Hgb (12.0-16.0) g/dl Hct (37-47) % MCV (80-98) fL MCH (27.0-33.0) pg MCHC (31.0-35.0) g/dl RDW (11.0-16.0) % Plt Count (160-400) X10*3/uL MPV (9.4-12.3) fL Immature Gran % (Auto) (0.0-0.4) % Neut % (Auto) (45-73) % Lymph % (Auto) (20-40) % [place] % (Auto) (2-11) % Eos % (Auto) (0-4) % Baso % (Auto) (0-2) % Lymph # (Auto) (1.2-4.9) X10*3/uL [place] # (Auto) (0.1-1.2) X10*3/uL Eos # (Auto) (0.0-0.4) X10*3/uL Baso # (Auto) (0.0-0.2) X10*3/uL Abs Immat Gran (auto) (0.00-0.03) X10*3/uL Absolute Neuts (auto) (2.0-8.3) X10*3/uL Absolute Nucleated RBC (0.0-0.012) X10*3/uL Nucleated RBC % (auto) (0.0-0.2) /100WBC Sodium (135-145) mmol/L Potassium (3.3-5.1) mmol/l Chloride (96-108) mmol/L Carbon Dioxide (22-29) mmol/L Anion Gap (12-20) BUN (9-16) mg/dL Creatinine (0.5-1.4) mg/dL Estim Creat Clear Calc Estimated GFR POC Glucose 295 H (60-115) mg/dL Random Glucose (60-115) mg/dL Lactic Acid (0.5-2.0) mmol/L Calcium (8.4-10.2) mg/dL Total Bilirubin (0.0-1.0) mg/dL AST (5-31) U/L ALT (0-31) U/L Alkaline Phosphatase (39-117) U/L Total Protein (6.5-8.0) g/dL Albumin (3.5-5.0) g/dL Lipase (8-78) U/L Urine Color YELLOW Urine Appearance CLEAR Urine pH 7.0 (5.0-8.0) Ur Specific [place] 1.020 (1.005-1.025) Urine Protein 3+ H (NEG-TRACE) MG/DL Urine Glucose (UA) >=1000 H (NEG) MG/DL Urine Ketones NEG (NEG) MG/DL Urine Blood TRACE (NEG) Urine Nitrite NEG (NEG) Ur Leukocyte Esterase NEG (NEG) Urine RBC 5-9 H (0) /HPF Urine WBC 1-4 (0-4) /HPF Ur Squamous Epith Cells 2+ /LPF Urine Bacteria TRACE /LPF Urine Mucus 1+ /LPF Coronavirus (PCR) NEGATIVE (Negative) Influenza Type A (PCR) NEGATIVE (Negative) Influenza Type B (PCR) NEGATIVE (Negative) RSV RNA Qual (PCR) NEGATIVE (Negative) ECG Data Attestation: I personally reviewed and interpreted this ECG as follows: Prior ECG tracings: available for review ( 05/03/2020 no acute changes on comparison) Interpretation: sinus rhythm, HR -99, no evidence for acute ischemia, RI/QRS are within normal limits, QTC is mildly prolonged. Discharge Plan Discharge Clinical Impression: Chest wall abscess Sepsis Qualifiers: Sepsis type: sepsis due to unspecified organism Sepsis acute organ dysfunction status: unspecified Qualified Code(s): A41.9 - Sepsis, unspecified organism Patient Disposition: Admitted As Inpatient
[2020-06-29] MEDS: cefTRIAXone sodium 1 GM in 0.9 % Sodium Chloride 50 ML IV (05:14)
[2020-06-29 06:00] LABS: Influenza A PCR NEGATIVE (Negative); Influenza B PCR NEGATIVE (Negative); Resp Syncy Virus RNA Qual PCR NEGATIVE (Negative); SARS COV2 PCR INHOUSE NEGATIVE (Negative)
[2020-06-29 06:56] LABS: Glucose Urine UA >=1000 MG/DL (NEG); Leukocyte Esterase Urine NEG (NEG); Nitrite Urine NEG (NEG); Urine Blood TRACE (NEG); Urine Ketones NEG (NEG); Urine Protein 3+ MG/DL (NEG-TRACE)
[2020-06-29 06:58] LABS: Appearance Urine CLEAR; Color Urine YELLOW
--- NOTE | 2020-06-29 07:02 | CT_ITS ---
EXAMINATION: CT CHEST WITHOUT CONTRAST CLINICAL INFORMATION: Right chest wall abscess COMPARISON: Previous chest x-rays most recent from earlier the same day and chest CT March 2018 TECHNIQUE: Multidetector volumetric CT imaging of the chest was done. Axial MIP volume rendering provided. Sagittal and coronal reformatted images were obtained. This CT examination was performed using dose optimization techniques as appropriate, variously including the following: *Automated exposure control *Adjustment of mA and/or kV according to patient size (this includes techniques or standardized protocols for targeted exams where dose is matched to indication/reason for exam; i.e. 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 There is a 3 mm calcified left lower lobe nodule axial image 267 series 4. The lungs are otherwise clear. MEDIASTINUM: There is mediastinal lymphadenopathy. Larger lymph nodes are upper normal in size. These have a fatty julia suggestive of reactive lymphadenopathy. The heart does not appear enlarged. There is a trace pericardial effusion or pericardial thickening. There is mild coronary artery calcification. The thoracic aorta is calcified but normal in caliber. The visualized thyroid gland is unremarkable. PLEURA: There is no pleural effusion. No pleural mass or thickening. AXILLA: There is stranding of the fat overlying the manubrium, medial bilateral pectoral muscles and upper anterior chest wall. There is some right upper chest skin thickening. No fluid collection/abscess is seen. There are no enlarged axillary lymph nodes. UPPER ABDOMEN: There is evidence of severe atherosclerotic disease with vessel wall calcification. OSSEOUS STRUCTURES: There are degenerative changes of the spine. CT/CT chest wo con IMPRESSION: Fat stranding overlying the manubrium, medial bilateral pectoral muscles and upper anterior chest wall suggestive of cellulitis. No fluid collection/abscess is seen. Mediastinal lymphadenopathy, likely reactive. Severe atherosclerotic disease with arterial vessel wall calcification.
--- NOTE | 2020-06-29 07:02 | PC.NURSE ---
sr on monitor, skin wpd, c/o suggs no other complaints,
[2020-06-29 07:11] LABS: Bacteria Urine TRACE /LPF; Mucus Urine 1+ /LPF; Squamous Epithelial Cell Urine 2+ /LPF
[2020-06-29] MEDS: vancomycin HCL 1,000 MG in 0.9 % Sodium Chloride 250 ML 270 MG IV (07:31)
--- NOTE | 2020-06-29 11:16 | PC.NURSE ---
patient a&ox3, cafeteria monitor nsr 90s, vss, poc 265, no c/o pain or discomfort at this time, will continue to monitor
[2020-06-29 11:20] LABS: Glucose, Whole Blood 265 mg/dL (60-115)
--- NOTE | 2020-06-29 12:25 | PM.IMHP ---
History of Present Illness Date of Service: 06/29/20 Chief Complaint: Temporarly dialysis catheter fell out with concern for site infection 60 year female with ESRD on Hemodialysis Sunday, Sunday and Fridays and followed by [facility]. She presented to the ED out of concern for her dialysis catheter located in right chest fell out. She woke this morning and noted the catheter was out. She was last dialysed Sunday (yesterday) 06/28. She states there has been concern of site been infected and was draining, she denies fever or chils and no other symptms of covid. her WBC is 22.7K. Imaging show no abscess but likely cellulitis where catheter was. She is given Ceftriaxone and Vancomyin, cultures sent. Covid negative. Review of Systems Review of Systems: Gen: no fever Resp: no sob, no cough CV: no chest, no LUO, no leg edema GI: No n/v, no abd pain Neuro: No confusion Yes all other systems are reviewed and are negative [facility] Medical History (Updated 06/29/20 @ 12:33 by Stevie Arshad MD) CHF (congestive heart failure) Chronic renal failure Diabetes mellitus, type 2 ESRD (end stage renal disease) Hypertension Seizures Functional capacity: independent ambulation Family History Father Arthritis Mother Cancer Diabetes Brother No problems noted. Sister No problems noted. Sister No problems noted. Son No problems noted. Son No problems noted. Daughter No problems noted. Daughter No problems noted. Daughter Thyroid condition Surgical History H/O section H/O removal of cyst History of carpal tunnel surgery of left wrist History of phacoemulsification of cataract of right eye with intraocular lens implantation Social History Household Members: Spouse Housing: Apartment Do you presently have visiting nurse or other home services: Yes ([employer]) Alcohol intake: never Smoking Status: Former smoker Use of substances other than those prescribed or required for medical reasons: No Currently Displaying Signs/Symptoms of Drug Intoxication Withdrawal: No Any prior treatment program specific to substance use: No Have you been hit, kicked, punched, or otherwise hurt by someone within the past year? If so, by whom?: No Do you feel safe in your current relationship?: Yes Is there a partner from a previous relationship who is making you feel unsafe now?: No Are you made to feel afraid or neglected: No Advance Directives: No Advance Directives Information Provided: Yes Do you have thoughts of harming others: None Do you have a plan to hurt others: No Plan Recently lost weight without trying: No Meds Allergies Allergy/AdvReac Type Severity Reaction Status Date / Time heparin [HEPARIN] Allergy Severe HEPARIN-INDUCED Verified 06/29/20 07:33 THROMBOCYTOPENIA adhesive tape [ADHESIVE TAPE] Allergy Intermediate LOCALIZED Verified 06/29/20 07:33 BLISTER morphine [MORPHINE] Allergy Intermediate GI UPSET Verified 06/29/20 07:33 warfarin Allergy Mild Unknown Verified 06/29/20 07:33 Home Medications Medication Instructions Recorded Confirmed Type bumetanide 1 mg tablet 1 mg PO DAILY 06/03/20 06/29/20 History cholecalciferol (vitamin D3) 50 50 mcg PO DAILY 06/03/20 06/29/20 History mcg (2,000 unit) capsule diphenhydramine HCl 25 mg capsule 50 mg PO DAILY PRN 06/03/20 06/29/20 History insulin aspart U-100 100 unit/mL 8 unit SUBCUT TID 06/03/20 06/29/20 History subcutaneous solution insulin detemir U-100 100 unit/mL 26 unit SUBCUT DAILY 06/03/20 06/29/20 History subcutaneous solution insulin syringe-needle U-100 0.3 #10 ea 06/03/20 06/03/20 History mL 31 gauge x 12/12 lisinopril 5 mg tablet 20 mg PO BEDTIME 06/03/20 06/29/20 History quetiapine 200 mg tablet 200 mg PO BEDTIME 06/03/20 06/29/20 History sevelamer carbonate 800 mg tablet 800 mg PO TID 06/03/20 06/29/20 History trazodone 100 mg tablet 100 mg PO BEDTIME 06/03/20 06/29/20 History vitamin B complex and vitamin C 1 cap PO DAILY 06/03/20 06/29/20 History no.20-folic acid 1 mg capsule warfarin 5 mg PO DAILY 06/29/20 06/29/20 History Physical Exam Vital Signs and Narrative: Vital Signs: Last Vital Signs Temp 98.8 F 06/29/20 11:15 Pulse 91 06/29/20 11:15 Resp 17 06/29/20 11:15 BP 147/58 H 06/29/20 11:15 Pulse Ox 97 06/29/20 11:15 Body Mass Index 20.3 Results Labs CBC and Chem 7: 06/30/20 06:22 06/30/20 06:22 Labs: Laboratory Results - last 24 hr 06/29/20 06/29/20 06/29/20 04:15 04:15 04:16 MCV 93.9 MCH 31.6 MCHC 33.7 RDW 15.1 Plt Count 192 D MPV 11.3 Immature Gran % (Auto) 0.6 H Neut % (Auto) 85.8 H Lymph % (Auto) 7.3 L [place] % (Auto) 5.8 Eos % (Auto) 0.1 Baso % (Auto) 0.4 Lymph # (Auto) 1.7 [place] # (Auto) 1.3 H Eos # (Auto) 0.0 Baso # (Auto) 0.1 Abs Immat Gran (auto) 0.13 H Absolute Neuts (auto) 19.5 H Absolute Nucleated RBC 0.000 Nucleated RBC % (auto) 0.0 Anion Gap 20 Estim Creat Clear Calc 16.2 Estimated GFR 15 POC Glucose Random Glucose 294 H D Lactic Acid 1.2 Calcium 9.2 Total Bilirubin 0.5 AST 25 ALT 12 Alkaline Phosphatase 98 Total Protein 8.3 H Albumin 4.0 Lipase 23 Urine Color Urine Appearance Urine pH Ur Specific [place] Urine Protein Urine Glucose (UA) Urine Ketones Urine Blood Urine Nitrite Ur Leukocyte Esterase Urine RBC Urine WBC Ur Squamous Epith Cells Urine Bacteria Urine Mucus Coronavirus (PCR) Influenza Type A (PCR) Influenza Type B (PCR) RSV RNA Qual (PCR) 06/29/20 06/29/20 06/29/20 04:44 05:17 06:49 MCV MCH MCHC RDW Plt Count MPV Immature Gran % (Auto) Neut % (Auto) Lymph % (Auto) [place] % (Auto) Eos % (Auto) Baso % (Auto) Lymph # (Auto) [place] # (Auto) Eos # (Auto) Baso # (Auto) Abs Immat Gran (auto) Absolute Neuts (auto) Absolute Nucleated RBC Nucleated RBC % (auto) Anion Gap Estim Creat Clear Calc Estimated GFR POC Glucose 295 H Random Glucose Lactic Acid Calcium Total Bilirubin AST ALT Alkaline Phosphatase Total Protein Albumin Lipase Urine Color YELLOW Urine Appearance CLEAR Urine pH 7.0 Ur Specific [place] 1.020 Urine Protein 3+ H Urine Glucose (UA) >=1000 H Urine Ketones NEG Urine Blood TRACE Urine Nitrite NEG Ur Leukocyte Esterase NEG Urine RBC 5-9 H Urine WBC 1-4 Ur Squamous Epith Cells 2+ Urine Bacteria TRACE Urine Mucus 1+ Coronavirus (PCR) NEGATIVE Influenza Type A (PCR) NEGATIVE Influenza Type B (PCR) NEGATIVE RSV RNA Qual (PCR) NEGATIVE 06/29/20 11:15 MCV MCH MCHC RDW Plt Count MPV Immature Gran % (Auto) Neut % (Auto) Lymph % (Auto) [place] % (Auto) Eos % (Auto) Baso % (Auto) Lymph # (Auto) [place] # (Auto) Eos # (Auto) Baso # (Auto) Abs Immat Gran (auto) Absolute Neuts (auto) Absolute Nucleated RBC Nucleated RBC % (auto) Anion Gap Estim Creat Clear Calc Estimated GFR POC Glucose 265 H Random Glucose Lactic Acid Calcium Total Bilirubin AST ALT Alkaline Phosphatase Total Protein Albumin Lipase Urine Color Urine Appearance Urine pH Ur Specific [place] Urine Protein Urine Glucose (UA) Urine Ketones Urine Blood Urine Nitrite Ur Leukocyte Esterase Urine RBC Urine WBC Ur Squamous Epith Cells Urine Bacteria Urine Mucus Coronavirus (PCR) Influenza Type A (PCR) Influenza Type B (PCR) RSV RNA Qual (PCR) Imaging Radiologist's Impressions: Impressions Chest X-Ray 06/29/20 03:47 IMPRESSION: No acute cardiopulmonary findings. Chest CT 06/29/20 07:02 IMPRESSION: Fat stranding overlying the manubrium, medial bilateral pectoral muscles and upper anterior chest wall suggestive of cellulitis. No fluid collection/abscess is seen. Mediastinal lymphadenopathy, likely reactive. Severe atherosclerotic disease with arterial vessel wall calcification. Assessment and Plan (1) Sepsis: Qualifiers: Sepsis acute organ dysfunction status: unspecified Sepsis type: sepsis due to unspecified organism Qualified Code(s): A41.9 - Sepsis, unspecified organism Status: Acute (2) Cellulitis of chest wall: Status: Acute (3) Diabetes mellitus, type 2: Status: Acute (4) CHF (congestive heart failure): Status: Acute (5) ESRD (end stage renal disease): Status: Acute 60 year old female with HTN, DM, ESRD on HD MoWeFr here with dialysis catheter falling out and chest wall cellulitis and meet sepsis criteria yet no severe sepsis 1. Cellultis of chest wall, where catheter was. -I agree with Guccio and should dosed around dialysis 2. Lack of dialysis access/catheter malfuction--She needs new temporaly cather and will contact nephrology and IR 3. Diabetes--continue Insulin, ADA 4. HTN--continue Lisinopril 5. HLD--Pravastin 6. ESRD--next dialysis tomorrow after temporaly catheter placement. DVT prophylaxis with device as she is allergic to heparin
--- NOTE | 2020-06-29 13:17 | PC.NURSE ---
patient ambulated to bathroom
--- NOTE | 2020-06-29 15:23 | PC.NURSE ---
patient a&ox3, nsr 90s on monitor, vss, pt requesting soup and some jello, will call kitchen, pt currently watching tv waiting for inpt bed, will continue to monitor.
--- NOTE | 2020-06-29 15:46 | PC.NURSE ---
pt currently sleeping, awaiting inpt bed
--- NOTE | 2020-06-29 16:14 | PC.NURSE ---
kitchen was called for pt request of soup for dinner, pt given jello for time being per her request
--- NOTE | 2020-06-29 16:39 | PC.NURSE ---
called floor to give report, nurse will call ed back
--- NOTE | 2020-06-29 16:53 | PC.NURSE ---
report called to floor
[2020-06-29 17:21] LABS: Glucose, Whole Blood 325 mg/dL (60-115)
[2020-06-29] MEDS: Insulin Lispro 100 UNIT/ML 3 ML VIAL 8 UNIT SUBCUT (17:38)
[2020-06-29] MEDS: 0.9 % Sodium Chloride Flush 3 ML SYRINGE IVFLUSH ×2 (17:42→19:34)
[2020-06-29] MEDS: QUEtiapine Fumarate 200 MG TABLET PO (19:33)
[2020-06-29] MEDS: lisinopriL 20 MG TABLET PO (19:33)
[2020-06-29] MEDS: traZODone HCL 100 MG TABLET PO (19:34)
[2020-06-29 19:38] LABS: Glucose, Whole Blood 125 mg/dL (60-115)
[2020-06-29 21:04] LABS: INTERNATIONAL NORM RATIO 1.1 (0.9-1.1); Prothrombin Time 12.6 SEC (10.8-13.0)
--- NOTE | 2020-06-29 21:16 | PM.EVENT ---
Event Note Date of Service: 06/29/20 Event Note: Notified by RN that Bcx x 2 is positive for Gram positive cocci in clusters. Vancomycin added to the regimen. To follow up with Infectious disease.
[2020-06-30] VITALS (7 sets, daily range): BP systolic 110–148; BP diastolic 50–95; PULSE 74–103; RESP 14–19; TEMP 35.9–37.3; O2SAT 97–99
--- NOTE | 2020-06-30 | IR_ITS ---
EXAMINATION: DIALYSIS CATHETER PLACEMENT CLINICAL INFORMATION: Right port and chest wall infection COMPARISON: June 29, 2020 TECHNIQUE: Ultrasound and fluoroscopically guided temporary dialysis catheter placement FINDINGS: Informed consent was obtained from the patient prior to the procedure. During this process, the procedure and potential alternatives were explained, along with the intended outcome and benefits. The risks of the procedure, as well as the risk of not doing the procedure, were discussed. The patient was given the opportunity to ask questions regarding the procedure and appeared competent to make medical decisions. A signed consent form which documents this discussion was placed in the medical record. Ultrasound evaluation of the left neck was performed demonstrating patency of left internal jugular vein. Using sterile technique ?All elements of maximal sterile barrier technique followed including use of cap, mask, sterile gown, sterile gloves, a sterile full body drape and hand hygiene. Also followed skin preparation with 2% chlorhexidine for cutaneous antisepsis, and sterile ultrasound preparation with sterile gel and probe cover when applicable.? Ultrasound guidance was used to gain access to the right internal jugular vein. Wire was then placed into the inferior vena cava and following fascial dilatation a 12 [place] by 20 cm temporary dialysis catheter was placed with tip in the mid right atrium. Both ports aspirated and flushed freely. 1.4 mL of concentration of 1000 units per milliliters of heparin were then placed in the ports for dwell. As was then sutured in place. Patient tolerated procedure without difficulty. IR/IR us guide venous access IMPRESSION: Placement of 12 [place] by 20 cm long left internal jugular dialysis catheter. Fluoroscopy time: 0.6 minutes
--- NOTE | 2020-06-30 | IR_ITS ---
EXAMINATION: DIALYSIS CATHETER PLACEMENT CLINICAL INFORMATION: Right port and chest wall infection COMPARISON: June 29, 2020 TECHNIQUE: Ultrasound and fluoroscopically guided temporary dialysis catheter placement FINDINGS: Informed consent was obtained from the patient prior to the procedure. During this process, the procedure and potential alternatives were explained, along with the intended outcome and benefits. The risks of the procedure, as well as the risk of not doing the procedure, were discussed. The patient was given the opportunity to ask questions regarding the procedure and appeared competent to make medical decisions. A signed consent form which documents this discussion was placed in the medical record. Ultrasound evaluation of the left neck was performed demonstrating patency of left internal jugular vein. Using sterile technique ?All elements of maximal sterile barrier technique followed including use of cap, mask, sterile gown, sterile gloves, a sterile full body drape and hand hygiene. Also followed skin preparation with 2% chlorhexidine for cutaneous antisepsis, and sterile ultrasound preparation with sterile gel and probe cover when applicable.? Ultrasound guidance was used to gain access to the right internal jugular vein. Wire was then placed into the inferior vena cava and following fascial dilatation a 12 [place] by 20 cm temporary dialysis catheter was placed with tip in the mid right atrium. Both ports aspirated and flushed freely. 1.4 mL of concentration of 1000 units per milliliters of heparin were then placed in the ports for dwell. As was then sutured in place. Patient tolerated procedure without difficulty. IR/IR cvc insert non tunnel IMPRESSION: Placement of 12 [place] by 20 cm long left internal jugular dialysis catheter. Fluoroscopy time: 0.6 minutes
[2020-06-30 06:54] LABS: MANUAL DIFF FLAG NO
[2020-06-30 07:03] LABS: Basophils Absolute Auto 0.1 X10*3/uL (0.0-0.2); Basophils Percent Auto 0.4 % (0-2); Eosinophils Absolute Auto 0.2 X10*3/uL (0.0-0.4); Eosinophils Percent Auto 1.5 % (0-4); Hemoglobin 9.5 g/dl (12.0-16.0); Imm Gran Abs Auto 0.15 X10*3/uL (0.00-0.03); Imm Gran Pct Auto 1.1 % (0.0-0.4); Lymphocytes Absolute Auto 1.3 X10*3/uL (1.2-4.9); Lymphocytes Percent Auto 9.9 % (20-40); Mean Corpuscular HGB Conc 33.9 g/dl (31.0-35.0); Mean Corpuscular Hemoglobin 31.9 pg (27.0-33.0); Mean Platelet Volume 11.7 fL (9.4-12.3); Monocytes Absolute Auto 1.1 X10*3/uL (0.1-1.2); Neutrophils Absolute Auto 10.6 X10*3/uL (2.0-8.3); Neutrophils Percent Auto 79.1 % (45-73); Platelet Count 179 X10*3/uL (160-400); Red Blood Count 2.98 X10*6/uL (4.20-5.50); Red Cell Distribution Width 14.8 % (11.0-16.0); White Blood Count 13.4 X10*3/uL (4.8-10.8)
[2020-06-30 07:45] LABS: Anion Gap 17 (12-20); Blood Urea Nitrogen 40 mg/dL (9-16); Calcium 8.2 mg/dL (8.4-10.2); Carbon Dioxide 26 mmol/L (22-29); Chloride 94 mmol/L (96-108); Creatinine Clr Calc Pharmacy 11.8; Estimated Glomerular Filt Rate 10; Glucose Random 128 mg/dL (60-115); Potassium 3.9 mmol/l (3.3-5.1); Sodium 133 mmol/L (135-145)
[2020-06-30] MEDS: 0.9 % Sodium Chloride Flush 3 ML SYRINGE IVFLUSH ×3 (07:50→20:42)
[2020-06-30 08:19] LABS: Glucose, Whole Blood 149 mg/dL (60-115)
[2020-06-30 08:23] LABS: Glucose, Whole Blood 320 mg/dL (60-115)
--- NOTE | 2020-06-30 09:42 | P.CDIC_ITS ---
CDI Concurrent Query Service Date: 06/30/20 Documentation Clarification: Please clarify if you are treating a proba ble/suspected/likely or confirmed: Cellulitis Chest Wall where dialysis catheter was due to Diabetes Mellitus Cellulitis Chest Wall where dialysis catheter was not due to Diabetes Mellitus Provider Response: Other Other Diagnosis: Cellulitis Chest Wall where dialysis catheter was due to Diabetes Mellitus PLEASE DO NOT DELETE/MODIFY EXISTING CONTENT Additional information is needed in order to code to the highest accuracy and appropriate Severity of Illness (SOI). Please clarify the information noted below in your progress notes and discharge summary. Risk Factors/Clinical Indicators/Treatments 60 year old female admitted for Sepsis, Cellulitis Chest wall where dialysis catheter was Past Medical History: ESRD, DM 2 Presented to ED due to dialysis catheter fell out. Nephrology consult pending CDS: Pari Ribeiro RN Contact Number: [phone] Please Review the information above and exercise your independent professional judgment in responding to the query. If you concur, pleas document in the PROGRESS NOTES and DISCHARGE SUMMARY. If you do not agree with the query, please document in the query above. THIS QUERY IS PART OF THE PERMANENT MEDICAL RECORD
--- NOTE | 2020-06-30 10:51 | PC.NURSE ---
JOSE WILLOUGHBY THE RESULTS OF THE CREAT 4.5 NO NEW ORDERS GIVEN
--- NOTE | 2020-06-30 10:53 | PC.NURSE ---
CONTACTED DR. ASHRAF WITH THE RESULTS OF THE CREAT 4.39
[2020-06-30] MEDS: Heparin Sodium,Porcine 1,000 UNIT/ML VIAL 4000 UNIT IV (11:40)
[2020-06-30] MEDS: Lidocaine HCl 1 % MPF 5 ML VIAL 10 ML SUBCUT (11:47)
[2020-06-30 12:07] LABS: Glucose, Whole Blood 190 mg/dL (60-115)
[2020-06-30] MEDS: ondansetron HCL 4 MG/2 ML VIAL IVPUSH (12:26)
--- NOTE | 2020-06-30 12:30 | P.PNIM_ITS ---
Subjective Subjective Date of Service: 06/30/20 Interval History: Seen in f/u due sepsis, due to line bacteremia. No fever, doing well Review of Systems Gen: no fever Resp: no sob, no cough CV: no chest, no LUO, no leg edema GI: No n/v, no abd pain Neuro: No confusion Physical Exam Vital Signs: Vital Signs: Last Vital Signs Temp 98.6 F 06/30/20 11:53 Pulse 103 H 06/30/20 11:53 Resp 19 06/30/20 11:53 BP 113/95 H 06/30/20 11:53 Pulse Ox 98 06/30/20 11:53 Body Mass Index 20.3 Const: Other: General: AO X 3, no acute distress Resp: CTA bilateral CVS: S1,S2,RRR GI: +BS, NT, no distention Skin: No rash, catheter site no drainage Neuro: motor grossly intact Psych: appropriate affect Objective Data Current Medications Generic Name Dose Route Start Last Admin Trade Name Freq PRN Reason Stop Dose Admin Acetaminophen 650 mg 06/29/20 17:12 Acetaminophen 325 Mg Tablet PO Q6H PRN Pain, Mild (Pain Scale 1-3) Hydrocodone Bitart/Acetaminophen 1 tab 06/29/20 17:20 06/29/20 19:33 Hydrocodone Bit/Acetam 10/325 Tablet PO 1 tab BEDTIME PRN Administration Pain, Mild (Pain Scale 1-3) Bumetanide 1 mg 06/30/20 09:00 06/30/20 09:10 Bumetanide 1 Mg Tablet PO Not Given DAILY [facility] Protocol Diphenhydramine HCl 50 mg 06/29/20 17:12 Diphenhydramine Hcl 25 Mg Tablet PO DAILY PRN Itching Insulin Human Lispro 8 unit 06/29/20 07:30 06/30/20 12:26 Insulin Lispro 100 Unit/Ml 3 Ml Vial SUBCUT Not Given TIDAC [facility] Insulin Human Lispro 0 unit 06/29/20 21:00 06/30/20 12:26 Insulin Lispro 100 Unit/Ml 3 Ml Vial SUBCUT Not Given QIDACHS [facility] Protocol Lisinopril 20 mg 06/29/20 21:00 06/29/20 19:33 Lisinopril 20 Mg Tablet PO 20 mg BEDTIME ASHA Administration Protocol Ondansetron HCl 4 mg 06/30/20 12:03 06/30/20 12:26 Ondansetron Hcl 4 Mg/2 Ml Vial IVPUSH 4 mg Q8H PRN Administration Nausea and Vomiting Pharmacy Consult 1 each 06/29/20 07:02 Consult Rx Perform Med Rec MISCELLANE ONCE PRN Consult order Pharmacy Consult 1 each 06/29/20 21:18 Consult Rx Vancomycin Dosing MISCELLANE DAILY PRN Consult order Pravastatin Sodium 40 mg 06/30/20 21:00 Pravastatin Sodium 40 Mg Tablet PO DAILY [facility] Quetiapine Fumarate 200 mg 06/29/20 21:00 06/29/20 19:33 Quetiapine Fumarate 200 Mg Tablet PO 200 mg BEDTIME ASHA Administration Sevelamer HCl 800 mg 06/30/20 08:00 06/30/20 12:26 Sevelamer Hcl 800 Mg Tablet PO Not Given TIDWM [facility] Sodium Chloride 3 ml 06/29/20 17:12 06/30/20 07:50 0.9 % Sodium Chloride Flush 3 Ml Syringe IVFLUSH 3 ml QSHIFT [facility] Administration Trazodone HCl 100 mg 06/29/20 21:00 06/29/20 19:34 Trazodone Hcl 100 Mg Tablet PO 100 mg BEDTIME [facility] Administration Vitamin B Complex/Folic Acid 1 cap 06/30/20 09:00 06/30/20 09:10 B Complex W-C No.20/Folic Acid Capsule PO Not Given DAILY [facility] Vitamin D 50 mcg 06/30/20 09:00 06/30/20 09:10 Cholecalciferol (Vitamin D3) 25 Mcg Tablet PO Not Given DAILY [facility] Labs CBC & Chem 7: 06/30/20 06:22 06/30/20 06:22 Microbiology Microbiology Results: Microbiology 06/29/20 04:15 Blood - Venous Blood Culture - Preliminary Staphylococcus aureus 06/29/20 04:15 Blood - Venous Blood Culture - Preliminary Staphylococcus aureus 06/29/20 08:10 Chest Gram Stain - Final 06/29/20 08:10 Chest Routine Culture - Preliminary Staphylococcus aureus Assessment and Plan (1) Sepsis: Status: Acute (2) ESRD (end stage renal disease): Status: Acute (3) CHF (congestive heart failure): Status: Acute (4) Diabetes mellitus, type 2: Status: Acute (5) Cellulitis of chest wall: Status: Acute (6) Chest wall abscess: Status: Acute (7) Encounter for screening colonoscopy: Status: Acute Assessment and Plan: 60 year old female with HTN, DM, ESRD on HD MoWeFr here with dialysis catheter falling out and chest wall cellulitis and meet sepsis criteria yet no severe sepsis 1. Sepsis due to dialysis catheter associated bacteremia, Cellulitis Chest Wall where dialysis catheter was due to Diabetes Mellitus, where catheter was --Follow culture results -Vancomycin after dialysis 2. Lack of dialysis access/catheter malfuction--She needs new temporaly cather t o be inserted today follow by, permacath when culture negative. 3. Diabetes--continue Insulin, ADA 4. HTN--continue Lisinopril 5. HLD--Pravastin 6. ESRD--next dialysis tomorrow after temporaly catheter placement. DVT prophylaxis with device as she is allergic to heparin
[2020-06-30 13:27] LABS: Vancomycin Random 26.2 mcg/mL (15-20)
[2020-06-30 14:49] LABS: Vancomycin Random 17.8 mcg/mL (15-20)
--- NOTE | 2020-06-30 14:53 | MHC.CM.PN ---
Met with pt this am. Pleasant and cooperative. Need dialysis catheter replace and dialysis today. Has Dialysis M,W, F at [facility]. Has cellulitis at the old catheter site and Blood cultures are positive. IMM completed and on chart. Has HCP and is on file(Cierra Guallpa, daughter, is the HCP([phone]) Expect home without services unless salvage determiner IV antibiotic therapy is necessary. Expect inpatient hospitalization at [facility] [place] through Sunday per MD rounds. Pt has family help at home and family to arrange transportation.
--- NOTE | 2020-06-30 15:32 | W.PM.IDCN ---
History of Present Illness Data of Consult Service Date: 06/30/20 Requesting physician: Stevie Martin Primary Care Provider: Unknown Physician HPI Reason for consult: infection concern She presents to hospital with dialysis catheter fell out She has according to dialysis had been using peroxide to clean catheter and has come in with no bandages at times to area She has yellow oozing areas Review of Systems Review of Systems: Yes all other systems are reviewed and are negative [facility] Past Medical History Medical History CHF (congestive heart failure) Chronic renal failure Diabetes mellitus, type 2 ESRD (end stage renal disease) Hypertension Seizures Functional capacity: independent ambulation Family History Family History Father Arthritis Mother Cancer Diabetes Brother No problems noted. Sister No problems noted. Sister No problems noted. Son No problems noted. Son No problems noted. Daughter No problems noted. Daughter No problems noted. Daughter Thyroid condition Surgical History Surgical History H/O section H/O removal of cyst History of carpal tunnel surgery of left wrist History of phacoemulsification of cataract of right eye with intraocular lens implantation Social History Social History Household Members: Spouse Housing: Apartment Do you presently have visiting nurse or other home services: Yes ([employer]IMAT[employer]ACH[employer]) Alcohol intake: never Smoking Status: Former smoker Use of substances other than those prescribed or required for medical reasons: No Currently Displaying Signs/Symptoms of Drug Intoxication Withdrawal: No Any prior treatment program specific to substance use: No Have you been hit, kicked, punched, or otherwise hurt by someone within the past year? If so, by whom?: No Do you feel safe in your current relationship?: Yes Is there a partner from a previous relationship who is making you feel unsafe now?: No Are you made to feel afraid or neglected: No Advance Directives: No Advance Directives Information Provided: Yes Do you have thoughts of harming others: None Do you have a plan to hurt others: No Plan Recently lost weight without trying: No service: No Current occupational status: unemployed Meds Allergies Allergy/AdvReac Type Severity Reaction Status Date / Time heparin [HEPARIN] Allergy Severe HEPARIN-INDUCED Verified 06/29/20 07:33 THROMBOCYTOPENIA adhesive tape [ADHESIVE TAPE] Allergy Intermediate LOCALIZED Verified 06/29/20 07:33 BLISTER morphine [MORPHINE] Allergy Intermediate GI UPSET Verified 06/29/20 07:33 warfarin Allergy Mild Unknown Verified 06/29/20 07:33 Home Medications Medication Instructions Recorded Confirmed Type bumetanide 1 mg tablet 1 mg PO DAILY 06/03/20 06/29/20 History cholecalciferol (vitamin D3) 50 50 mcg PO DAILY 06/03/20 06/29/20 History mcg (2,000 unit) capsule diphenhydramine HCl 25 mg capsule 50 mg PO DAILY PRN 06/03/20 06/29/20 History insulin aspart U-100 100 unit/mL 8 unit SUBCUT TID 06/03/20 06/29/20 History subcutaneous solution insulin detemir U-100 100 unit/mL 26 unit SUBCUT DAILY 06/03/20 06/29/20 History subcutaneous solution insulin syringe-needle U-100 0.3 #10 ea 06/03/20 06/03/20 History mL 31 gauge x 16 lisinopril 5 mg tablet 20 mg PO BEDTIME 06/03/20 06/29/20 History quetiapine 200 mg tablet 200 mg PO BEDTIME 06/03/20 06/29/20 History sevelamer carbonate 800 mg tablet 800 mg PO TID 06/03/20 06/29/20 History trazodone 100 mg tablet 100 mg PO BEDTIME 06/03/20 06/29/20 History vitamin B complex and vitamin C 1 cap PO DAILY 06/03/20 06/29/20 History no.20-folic acid 1 mg capsule warfarin 5 mg PO DAILY 06/29/20 06/29/20 History Physical Exam Vital Signs: Vital Signs: Last Vital Signs Temp 98.6 F 06/30/20 11:53 Pulse 103 H 06/30/20 11:53 Resp 19 06/30/20 11:53 BP 113/95 H 06/30/20 11:53 Pulse Ox 98 06/30/20 11:53 Body Mass Index 20.3 Const: General: cooperative Orientation/consciousness: oriented to person, oriented to place and oriented to time HENMT: Head: Yes normal to inspection Mouth: Normal oral and palatal mucosa present Resp: Effort & Inspection: normal respiratory effort Cardio: Rate: regular rate Rhythm: regular rhythm GI: Palpation (GI): nontender and No hepatosplenomegaly present : General: Yes no CVA tenderness Back/Spine/Pelvis: Back: no CVA tenderness Skin: General skin exam: no rashes or lesions noted Neuro: General: oriented to person, oriented to place and oriented to time Extrem: General: Yes normal to inspection Assessment and Plan (1) ESRD (end stage renal disease): Status: Acute (2) Cellulitis of chest wall: Problem details: Concern over MRSA Catheter has been removed Staph bacteremia Status: Acute Vancomycin,dose to maintain appropriate parameters If bacteremic check echo (3) Sepsis: Qualifiers: Sepsis acute organ dysfunction status: unspecified Sepsis type: sepsis due to unspecified organism Qualified Code(s): A41.9 - Sepsis, unspecified organism Status: Acute (4) Chest wall abscess: Status: Acute Results Labs CBC & Chem 7: 06/30/20 06:22 06/30/20 06:22 Labs: Short CBC 06/30/20 Range/Units 06:22 WBC 13.4 H (4.8-10.8) X10*3/uL Hgb 9.5 L D (12.0-16.0) g/dl Hct 28.0 L D (37-47) % Plt Count 179 (160-400) X10*3/uL BMP 06/30/20 06:22 Sodium 133 L Potassium 3.9 Chloride 94 L Carbon Dioxide 26 BUN 40 H Creatinine 4.39 H* Calcium 8.2 L D Microbiology Microbiology Results: Microbiology 06/29/20 04:15 Blood - Venous Blood Culture - Preliminary Staphylococcus aureus 06/29/20 04:15 Blood - Venous Blood Culture - Preliminary Staphylococcus aureus 06/29/20 08:10 Chest Gram Stain - Final 06/29/20 08:10 Chest Routine Culture - Preliminary Staphylococcus aureus
[2020-06-30] MEDS: Acetaminophen 325 MG TABLET 650 MG PO (16:19)
[2020-06-30 16:23] LABS: Glucose, Whole Blood 109 mg/dL (60-115)
--- NOTE | 2020-06-30 18:23 | PM.PNNEP ---
Subjective Subjective Date of Service: 06/30/20 Interval history: Seen and examined. Events noted Physical Exam Vital Signs: Vital Signs: Last Vital Signs Temp 98.1 F 06/30/20 17:54 Pulse 95 06/30/20 17:54 Resp 18 06/30/20 17:54 BP 121/54 L 06/30/20 17:54 Pulse Ox 98 06/30/20 17:54 Body Mass Index 20.3 Const: Other: General: AO X 3, no acute distress Resp: CTA bilateral CVS: S1,S2,RRR GI: +BS, NT, no distention Skin: No rash, catheter site no drainage Neuro: motor grossly intact Psych: appropriate affect General: cooperative Orientation/consciousness: oriented to person, oriented to place and oriented to time HENMT: Head: Yes normal to inspection Mouth: Normal oral and palatal mucosa present Resp: Effort & Inspection: normal respiratory effort Cardio: Other: General: AO X 3, no acute distress Resp: CTA bilateral CVS: S1,S2,RRR GI: +BS, NT, no distention Skin: No rash, catheter site no drainage Neuro: motor grossly intact Psych: appropriate affect Rate: regular rate Rhythm: regular rhythm GI: Palpation (GI): nontender and No hepatosplenomegaly present : General: Yes no CVA tenderness Back/Spine/Pelvis: Back: no CVA tenderness Skin: General skin exam: no rashes or lesions noted Neuro: General: oriented to person, oriented to place and oriented to time Extrem: General: Yes normal to inspection Assessment & Plan Assessment and plan (1) ESRD (end stage renal disease): Status: Acute (2) Cellulitis of chest wall: Problem details: Concern over MRSA Catheter has been removed Staph bacteremia Status: Acute Assessment and Plan: Vancomycin,dose to maintain appropriate parameters If bacteremic check echo (3) Sepsis: Status: Acute (4) Chest wall abscess: Status: Acute Assessment and Plan: ESRD: mwf Staph Bactermia: most c/wline sepsis rec: temp non-tunneld cath today and HD toady and then agoin on sunday;vanoc as per ID ( usu 500mg after HD) repeat blood cult tomorrow plan on remove HD cath on Sunday and then place new Pcath on Sunday as long as blood cult remain neg for > 48 hrs defer to ID if echo needed but if bloood cult on repeat testing pos then will definitely need echo to r/o endocarditis etc.. REC: non-tunnelled temp cath today and HD and then cont vanco 500 after HD Time Spent With Patient Time: Total time spent is greater than 50% in coordination of care (as documented) at patient's floor/unit and/or counseling patient:
[2020-06-30 20:19] LABS: Glucose, Whole Blood 331 mg/dL (60-115)
[2020-06-30] MEDS: traZODone HCL 100 MG TABLET PO (20:40)
[2020-06-30] MEDS: QUEtiapine Fumarate 200 MG TABLET PO (20:40)
[2020-06-30] MEDS: lisinopriL 20 MG TABLET PO (20:40)
[2020-06-30] MEDS: Insulin Lispro 100 UNIT/ML 3 ML VIAL SUBCUT (20:41)
[2020-06-30] MEDS: Pravastatin Sodium 40 MG TABLET PO (20:41)
[2020-07-01 04:00] VITALS: BP 138/59; PULSE 74; RESP 16; TEMP 35.9; O2SAT 98
--- NOTE | 2020-07-01 07:04 | PC.NURSE ---
asked dr. arabella martinez last night if patient needed a dose of vanco overnight, dr. arabella martinez stated no.
[2020-07-01 07:33] LABS: Glucose, Whole Blood 155 mg/dL (60-115)
[2020-07-01 08:00] VITALS: BP 162/48; PULSE 92; RESP 16; TEMP 35.8; O2SAT 99
--- NOTE | 2020-07-01 08:38 | HO.PM.IMPN ---
Subjective Subjective Date of Service: 07/01/20 Interval History: Seen in f/u for catheter bacteremia, sepsis. Doing well, no fever or chills Review of Systems Gen: no fever Resp: no sob, no cough CV: no chest, no LUO, no leg edema GI: No n/v, no abd pain Neuro: No confusion Physical Exam Vital Signs: Vital Signs: Last Vital Signs Temp 96.4 F L 07/01/20 08:00 Pulse 92 07/01/20 08:00 Resp 16 07/01/20 08:00 BP 162/48 H 07/01/20 08:00 Pulse Ox 99 07/01/20 08:00 Body Mass Index 20.3 Const: Other: General: AO X 3, no acute distress Resp: CTA bilateral CVS: S1,S2,RRR GI: +BS, NT, no distention Skin: No rash, catheter site no rash Neuro: motor grossly intact Psych: appropriate affect Objective Data Current Medications Generic Name Dose Route Start Last Admin Trade Name Freq PRN Reason Stop Dose Admin Acetaminophen 650 mg 06/29/20 17:12 06/30/20 16:19 Acetaminophen 325 Mg Tablet PO 650 mg Q6H PRN Administration Pain, Mild (Pain Scale 1-3) Hydrocodone Bitart/Acetaminophen 1 tab 06/29/20 17:20 06/30/20 20:43 Hydrocodone Bit/Acetam 10/325 Tablet PO 1 tab BEDTIME PRN Administration Pain, Mild (Pain Scale 1-3) Bumetanide 1 mg 06/30/20 09:00 06/30/20 09:10 Bumetanide 1 Mg Tablet PO Not Given DAILY [facility] Protocol Diphenhydramine HCl 50 mg 06/29/20 17:12 Diphenhydramine Hcl 25 Mg Tablet PO DAILY PRN Itching Insulin Human Lispro 8 unit 06/29/20 07:30 06/30/20 16:21 Insulin Lispro 100 Unit/Ml 3 Ml Vial SUBCUT Not Given TIDAC [facility] Insulin Human Lispro 0 unit 06/29/20 21:00 06/30/20 20:41 Insulin Lispro 100 Unit/Ml 3 Ml Vial SUBCUT 8 unit QIDACHS [facility] Administration Protocol Lisinopril 20 mg 06/29/20 21:00 06/30/20 20:40 Lisinopril 20 Mg Tablet PO 20 mg BEDTIME ASHA Administration Protocol Ondansetron HCl 4 mg 06/30/20 12:03 06/30/20 12:26 Ondansetron Hcl 4 Mg/2 Ml Vial IVPUSH 4 mg Q8H PRN Administration Nausea and Vomiting Pharmacy Consult 1 each 06/29/20 07:02 Consult Rx Perform Med Rec MISCELLANE ONCE PRN Consult order Pharmacy Consult 1 each 06/29/20 21:18 Consult Rx Vancomycin Dosing MISCELLANE DAILY PRN Consult order Pravastatin Sodium 40 mg 06/30/20 21:00 06/30/20 20:41 Pravastatin Sodium 40 Mg Tablet PO 40 mg DAILY ASHA Administration Quetiapine Fumarate 200 mg 06/29/20 21:00 06/30/20 20:40 Quetiapine Fumarate 200 Mg Tablet PO 200 mg BEDTIME ASHA Administration Sevelamer HCl 800 mg 06/30/20 08:00 06/30/20 17:03 Sevelamer Hcl 800 Mg Tablet PO 800 mg TIDWM [facility] Administration Sodium Chloride 3 ml 06/29/20 17:12 06/30/20 20:42 0.9 % Sodium Chloride Flush 3 Ml Syringe IVFLUSH 3 ml QSHIFT ASHA Administration Trazodone HCl 100 mg 06/29/20 21:00 06/30/20 20:40 Trazodone Hcl 100 Mg Tablet PO 100 mg BEDTIME ASHA Administration Vitamin B Complex/Folic Acid 1 cap 06/30/20 09:00 06/30/20 09:10 B Complex W-C No.20/Folic Acid Capsule PO Not Given DAILY [facility] Vitamin D 50 mcg 06/30/20 09:00 06/30/20 09:10 Cholecalciferol (Vitamin D3) 25 Mcg Tablet PO Not Given DAILY [facility] Labs CBC & Chem 7: 06/30/20 06:22 06/30/20 06:22 Microbiology Microbiology Results: Microbiology 06/29/20 08:10 Chest Gram Stain - Final 06/29/20 08:10 Chest Routine Culture - Final Methicillin Res Staph Aureus 06/29/20 04:15 Blood - Venous Blood Culture - Preliminary Staphylococcus aureus 06/29/20 04:15 Blood - Venous Blood Culture - Preliminary Staphylococcus aureus Assessment and Plan (1) Sepsis: Status: Acute (2) ESRD (end stage renal disease): Status: Acute (3) CHF (congestive heart failure): Status: Acute (4) Diabetes mellitus, type 2: Status: Acute (5) Cellulitis of chest wall: Problem details: Concern over MRSA Catheter has been removed Staph bacteremia Status: Acute (6) Chest wall abscess: Status: Acute (7) Encounter for screening colonoscopy: Status: Acute Assessment and Plan: 60 year old female with HTN, DM, ESRD on HD MoWeFr here with dialysis catheter falling out and chest wall cellulitis and meet sepsis criteria yet no severe sepsis 1. Sepsis due to dialysis catheter associated bacteremia, Cellulitis Chest Wall where dialysis catheter was due to Diabetes Mellitus, where catheter was. Culture = MRSA --Follow culture results. Catheter fell at home -Vancomycin after dialysis, check random level today -get addtional blood cultures today 2. Lack of dialysis access/catheter malfuction--She needs new temporaly cather to be inserted 06/30, permacath on sunday 3. Diabetes--continue Insulin, ADA 4. HTN--continue Lisinopril 5. HLD--Pravastin 6. ESRD--next dialysis tomorrow after temporaly catheter placement. DVT prophylaxis with device as she is allergic to heparin
[2020-07-01] MEDS: Insulin Lispro 100 UNIT/ML 3 ML VIAL SUBCUT ×2 (08:44→17:40)
[2020-07-01] MEDS: Insulin Lispro 100 UNIT/ML 3 ML VIAL 8 UNIT SUBCUT (08:44)
[2020-07-01] MEDS: 0.9 % Sodium Chloride Flush 3 ML SYRINGE IVFLUSH ×3 (08:45→20:27)
[2020-07-01] MEDS: Cholecalciferol (Vitamin D3) 25 MCG TABLET 50 MCG PO (08:45)
[2020-07-01] MEDS: Bumetanide 1 MG TABLET PO (08:45)
[2020-07-01] MEDS: Pravastatin Sodium 40 MG TABLET PO (08:45)
[2020-07-01 09:03] LABS: Vancomycin Random 17.1 mcg/mL (15-20)
--- NOTE | 2020-07-01 10:33 | PM.PNNEP ---
Subjective Subjective Date of Service: 07/01/20 Interval history: Seen and examined. Events noted Physical Exam Vital Signs: Vital Signs: Last Vital Signs Temp 96.4 F L 07/01/20 08:00 Pulse 92 07/01/20 08:00 Resp 16 07/01/20 08:00 BP 162/48 H 07/01/20 08:00 Pulse Ox 99 07/01/20 08:00 Body Mass Index 20.3 Const: Other: General: AO X 3, no acute distress Resp: CTA bilateral CVS: S1,S2,RRR GI: +BS, NT, no distention Skin: No rash, catheter site no drainage Neuro: motor grossly intact Psych: appropriate affect General: cooperative Orientation/consciousness: oriented to person, oriented to place and oriented to time HENMT: Head: Yes normal to inspection Mouth: Normal oral and palatal mucosa present Resp: Effort & Inspection: normal respiratory effort Cardio: Other: General: AO X 3, no acute distress Resp: CTA bilateral CVS: S1,S2,RRR GI: +BS, NT, no distention Skin: No rash, catheter site no drainage Neuro: motor grossly intact Psych: appropriate affect Rate: regular rate Rhythm: regular rhythm GI: Palpation (GI): nontender and No hepatosplenomegaly present : General: Yes no CVA tenderness Back/Spine/Pelvis: Back: no CVA tenderness Skin: General skin exam: no rashes or lesions noted Neuro: General: oriented to person, oriented to place and oriented to time Extrem: General: Yes normal to inspection Assessment & Plan Assessment and plan (1) ESRD (end stage renal disease): Status: Acute (2) Cellulitis of chest wall: Problem details: Concern over MRSA Catheter has been removed Staph bacteremia Status: Acute (3) Sepsis: Status: Acute (4) Chest wall abscess: Status: Acute Assessment and Plan: ESRD: mwf Staph Bactermia: most c/wline sepsis rec: HD on sunday;vanoc as per ID ( usu 500mg after HD) repeat blood cult tomorrow plan on remove HD cath on Sunday after HD and then place new Pcath on Sunday as long as blood cult remain neg for > 48 hrs...if stable thsi new Pcath can be placed as outpt ( I will look to c if it can be done by Dr Schneider at oupt ) defer to ID if echo needed but if bloood cult on repeat testing pos then will definitely need echo to r/o endocarditis etc.. Time Spent With Patient Time: Total time spent is greater than 50% in coordination of care (as documented) at patient's floor/unit and/or counseling patient:
[2020-07-01 11:16] LABS: Glucose, Whole Blood 61 mg/dL (60-115)
[2020-07-01 11:26] VITALS: BP 168/67; PULSE 92; RESP 16; TEMP 36.1; O2SAT 97
[2020-07-01] MEDS: Acetaminophen 325 MG TABLET 650 MG PO (11:29)
[2020-07-01 15:06] VITALS: BP 155/83; PULSE 90; RESP 18; TEMP 36.6; O2SAT 98
--- NOTE | 2020-07-01 15:37 | MHC.CM.PN ---
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
[2020-07-01 16:56] LABS: Glucose, Whole Blood 289 mg/dL (60-115)
[2020-07-01 20:00] VITALS: BP 165/59; PULSE 86; RESP 16; TEMP 36.7; O2SAT 98
[2020-07-01 20:26] LABS: Glucose, Whole Blood 130 mg/dL (60-115)
[2020-07-01] MEDS: ondansetron HCL 4 MG/2 ML VIAL IVPUSH (20:27)
[2020-07-01] MEDS: QUEtiapine Fumarate 200 MG TABLET PO (20:27)
[2020-07-01] MEDS: lisinopriL 20 MG TABLET PO (20:27)
[2020-07-01] MEDS: traZODone HCL 100 MG TABLET PO (20:27)
[2020-07-02] VITALS: BP 164/70; PULSE 92; RESP 16; TEMP 36.6; O2SAT 98
[2020-07-02 03:05] VITALS: BP 115/60; PULSE 78; RESP 16; TEMP 36.5; O2SAT 96
[2020-07-02 07:11] LABS: Vancomycin Random 16.2 mcg/mL (15-20)
[2020-07-02 07:37] VITALS: BP 139/64; PULSE 78; RESP 18; TEMP 36.3; O2SAT 97
[2020-07-02 08:00] LABS: Glucose, Whole Blood 214 mg/dL (60-115)
[2020-07-02] MEDS: Insulin Lispro 100 UNIT/ML 3 ML VIAL SUBCUT (08:05)
[2020-07-02] MEDS: Bumetanide 1 MG TABLET PO (08:06)
[2020-07-02] MEDS: 0.9 % Sodium Chloride Flush 3 ML SYRINGE IVFLUSH (08:06)
[2020-07-02] MEDS: Cholecalciferol (Vitamin D3) 25 MCG TABLET 50 MCG PO (08:06)
[2020-07-02] MEDS: Pravastatin Sodium 40 MG TABLET PO (08:08)
--- NOTE | 2020-07-02 10:50 | PM.PNNEP ---
Subjective Subjective Date of Service: 07/02/20 Interval history: Seen and examined. Events noted Physical Exam Vital Signs: Vital Signs: Last Vital Signs Temp 97.3 F 07/02/20 07:37 Pulse 78 07/02/20 07:37 Resp 18 07/02/20 07:37 BP 139/64 07/02/20 07:37 Pulse Ox 97 07/02/20 07:37 Body Mass Index 20.3 Const: Other: General: AO X 3, no acute distress Resp: CTA bilateral CVS: S1,S2,RRR GI: +BS, NT, no distention Skin: No rash, catheter site no drainage Neuro: motor grossly intact Psych: appropriate affect General: cooperative Orientation/consciousness: oriented to person, oriented to place and oriented to time HENMT: Head: Yes normal to inspection Mouth: Normal oral and palatal mucosa present Resp: Effort & Inspection: normal respiratory effort Cardio: Other: General: AO X 3, no acute distress Resp: CTA bilateral CVS: S1,S2,RRR GI: +BS, NT, no distention Skin: No rash, catheter site no drainage Neuro: motor grossly intact Psych: appropriate affect Rate: regular rate Rhythm: regular rhythm GI: Palpation (GI): nontender and No hepatosplenomegaly present : General: Yes no CVA tenderness Back/Spine/Pelvis: Back: no CVA tenderness Skin: General skin exam: no rashes or lesions noted Neuro: General: oriented to person, oriented to place and oriented to time Extrem: General: Yes normal to inspection Assessment & Plan Assessment and plan (1) ESRD (end stage renal disease): Status: Acute (2) Cellulitis of chest wall: Status: Acute (3) Sepsis: Status: Acute (4) Chest wall abscess: Status: Acute Assessment and Plan: ESRD: mwf Staph Bactermia: most c/w line sepsis rec: HD today;vanoc as per ID ( usu 500mg after HD) repeat blood if not done already plan on remove HD cath after HD today and then place new Pcath on Sunday as long as blood cult remain neg for > 48 hrs...if stable this new Pcath can be placed as outpt ( I contacted Dr Schneider office and scheduled it for Sunday) defer to ID if echo needed but if blood cult on repeat testing pos then will definitely need echo to r/o endocarditis etc.. . Time Spent With Patient Time: Total time spent is greater than 50% in coordination of care (as documented) at patient's floor/unit and/or counseling patient:
--- NOTE | 2020-07-02 10:54 | P.DS_ITS ---
DS: Providers Provider Date of admission: 06/29/20 12:22 Primary care physician: Unknown Physician Consults: 06/29/20 12:23 Consult to Nephrology Routine Consulting Provider: Branden Rojo Reason for consultation: Need dialysis, catheter fell 06/29/20 21:18 Consult to Infectious Diseases Routine Consulting Provider: Ana M Guthrie Reason for consultation: gram positive bacteremia Has provider been notified: No 06/30/20 07:16 Consult to Infectious Diseases Routine Consulting Provider: Ana M Guthrie Reason for consultation: bacteremia Has provider been notified: No DS: Diagnosis Discharge Diagnosis (1) ESRD (end stage renal disease): (2) Cellulitis of chest wall: (3) Sepsis: Status: Acute (4) Chest wall abscess: Status: Acute DS: Medications Discharge Medications Home Medications: Home Medications Medication Instructions Recorded Confirmed bumetanide 1 mg tablet 1 mg PO DAILY 06/03/20 06/29/20 cholecalciferol (vitamin D3) 50 50 mcg PO DAILY 06/03/20 06/29/20 mcg (2,000 unit) capsule diphenhydramine HCl 25 mg capsule 50 mg PO DAILY PRN 06/03/20 06/29/20 insulin aspart U-100 100 unit/mL 8 unit SUBCUT TID 06/03/20 06/29/20 subcutaneous solution insulin detemir U-100 100 unit/mL 26 unit SUBCUT DAILY 06/03/20 06/29/20 subcutaneous solution insulin syringe-needle U-100 0.3 #10 ea 06/03/20 06/03/20 mL 31 gauge x 16 lisinopril 5 mg tablet 20 mg PO BEDTIME 06/03/20 06/29/20 quetiapine 200 mg tablet 200 mg PO BEDTIME 06/03/20 06/29/20 sevelamer carbonate 800 mg tablet 800 mg PO TID 06/03/20 06/29/20 trazodone 100 mg tablet 100 mg PO BEDTIME 06/03/20 06/29/20 vitamin B complex and vitamin C 1 cap PO DAILY 06/03/20 06/29/20 no.20-folic acid 1 mg capsule warfarin 5 mg PO DAILY 06/29/20 06/29/20 Previous Rx's Medication Instructions Recorded hydrocodone-acetaminophen [Vicodin 1 tab PO BEDTIME PRN #7 tab 05/04/20 HP] pravastatin 40 mg tablet 40 mg PO DAILY #90 tab 06/08/20 DS: Summary Hospital Course Hospital Course: Chief Complaint: Temporarly dialysis catheter fell out with concern for site infection 60 year female with ESRD on Hemodialysis Sunday, Sunday and Fridays and followed by [facility]. She presented to the ED out of concern for her dialysis catheter located in right chest fell out. She woke this morning and noted the catheter was out. She was last dialysed Sunday (yesterday) 06/28. She states there has been concern of site been infected and was draining, she denies fever or chils and no other symptms of covid. her WBC is 22.7K. Imaging show no abscess but likely cellulitis where catheter was. She is given Ceftriaxone and Vancomyin, cultures sent. Covid negative. Hospital course: Patient was empirically started on Vancomycin, culture from catheter site and blood cultures both growing MRSA. She had a temporarly catheter inserted the next day for dialysis. And vancomycin level has been followed and presently at 17. She will be have dialysis today and then catheter will be removed and permacath inserted on sunday for dialysis. Additional cultures are been drawan. An arrangement has been made by Dr. Whitman for Permacath on Sunday on outpatient basis.. She has no fever Status at Discharge Functional status at discharge: independent ambulation Time Spent with Patient Time attestation: Total time spent providing and/or coordinating discharge services: Discharge coordination time: Greater than 30 minutes Physical Exam Vital Signs: Vital Signs: Last Vital Signs Temp 97.3 F 07/02/20 07:37 Pulse 78 07/02/20 07:37 Resp 18 07/02/20 07:37 BP 139/64 07/02/20 07:37 Pulse Ox 97 07/02/20 07:37 Body Mass Index 20.3 General: AO X 3, no acute distress Resp: CTA bilateral CVS: S1,S2,RRR GI: +BS, NT, no distention Skin: No rash, catheter site looks clean Neuro: motor grossly intact Psych: appropriate affect DS: Data Data Completed and Pending Labs on day of discharge: 06/29/20 03:46 ECG 12 lead EKG Stat EKG Documentation DIRECTED 06/29/20 03:47 XR chest 1V Stat 06/29/20 04:15 Complete Blood Count Auto Diff Stat Lactic Acid Stat 06/29/20 04:16 Comprehensive Met. Panel Stat Lipase Stat 06/29/20 04:44 Glucose, Whole Blood Routine 06/29/20 04:57 cefTRIAXone sodium [Rocephin] 1 gm 0.9 % Sodium Chloride [Ns] 50 ml IV ONCE 06/29/20 05:12 cefTRIAXone sodium [Rocephin] 1 gm .ROUTE .STK-MED ONE 06/29/20 05:17 SARS-CoV2/FLU/RSV Stat 06/29/20 07:01 ED Diet NOW 06/29/20 07:02 CT chest wo con Stat 06/29/20 07:20 vancomycin HCL 1,000 mg 0.9 % Sodium Chloride [Ns] 250 ml IV ONCE 06/29/20 07:26 vancomycin HCL 1,000 mg .ROUTE .STK-MED ONE 06/29/20 08:10 Routine Culture w Gram Stain Stat 06/29/20 11:15 Glucose, Whole Blood Routine 06/29/20 12:16 Transfer Order Routine 06/29/20 17:13 Glucose, Whole Blood Routine 06/29/20 17:14 Glucose, Whole Blood Routine 06/29/20 19:32 Glucose, Whole Blood Routine 06/29/20 20:23 PT with INR [Prothrombin Time INR] Routine 06/29/20 21:15 vancomycin HCL 1,000 mg 0.9 % Sodium Chloride [Ns] 250 ml IV Q12H 06/30/20 IR cvc insert non tunnel Routine IR us guide venous access Routine 06/30/20 06:22 Basic Metabolic Panel DAILY@0600 Complete Blood Count Auto Diff DAILY@0600 06/30/20 08:15 Glucose, Whole Blood Routine 06/30/20 09:59 Heparin Sodium,Porcine 1,000 unit IV .STK-MED ONE Lidocaine HCl 1 % MPF [Xylocaine 1 % MPF] 5 ml .ROUTE .STK-MED ONE 06/30/20 10:01 Heparin Sodium (Porcine)/NS/PF 1,000 unit in 500 ml IV As directed 06/30/20 10:32 hydrALAZINE HCl [Apresoline] 20 mg .ROUTE .STK-MED ONE 06/30/20 11:29 hydrALAZINE HCl [Apresoline] 10 mg IVPUSH ONCE ONE 06/30/20 11:37 Heparin Sodium,Porcine 4,000 unit IV ONCE ONE 06/30/20 11:44 Lidocaine HCl 1 % MPF [Xylocaine 1 % MPF] 10 ml SUBCUT ONCE ONE 06/30/20 11:48 Vancomycin Random Stat 06/30/20 11:51 Glucose, Whole Blood Routine 06/30/20 14:00 Vancomycin Random Stat 06/30/20 16:13 Glucose, Whole Blood Routine 06/30/20 16:45 Heparin Sodium,Porcine 5,000 unit INTRACATH TALYA@1645 06/30/20 20:08 Glucose, Whole Blood Routine 07/01/20 07:29 Glucose, Whole Blood Routine 07/01/20 07:50 Vancomycin Random Routine 07/01/20 11:06 Glucose, Whole Blood Routine 07/01/20 16:53 Glucose, Whole Blood Routine 07/01/20 20:22 Glucose, Whole Blood Routine 07/02/20 06:28 Vancomycin Random Stat 07/02/20 07:56 Glucose, Whole Blood Routine 07/02/20 09:32 Alteplase Cath Clear [Cathflo Activase] 2 mg INTRACATH ONCE ONE Laboratory Last Values WBC 13.4 X10*3/uL (4.8-10.8) H 06/30/20 06:22 RBC 2.98 X10*6/uL (4.20-5.50) L D 06/30/20 06:22 Hgb 9.5 g/dl (12.0-16.0) L D 06/30/20 06:22 Hct 28.0 % (37-47) L D 06/30/20 06:22 MCV 94.0 fL (80-98) 06/30/20 06:22 MCH 31.9 pg (27.0-33.0) 06/30/20 06:22 MCHC 33.9 g/dl (31.0-35.0) 06/30/20 06:22 RDW 14.8 % (11.0-16.0) 06/30/20 06:22 Plt Count 179 X10*3/uL (160-400) 06/30/20 06:22 MPV 11.7 fL (9.4-12.3) 06/30/20 06:22 Immature Gran % (Auto) 1.1 % (0.0-0.4) H 06/30/20 06:22 Neut % (Auto) 79.1 % (45-73) H 06/30/20 06:22 Lymph % (Auto) 9.9 % (20-40) L 06/30/20 06:22 [place] % (Auto) 8.0 % (2-11) 06/30/20 06:22 Eos % (Auto) 1.5 % (0-4) 06/30/20 06:22 Baso % (Auto) 0.4 % (0-2) 06/30/20 06:22 Lymph # (Auto) 1.3 X10*3/uL (1.2-4.9) 06/30/20 06:22 [place] # (Auto) 1.1 X10*3/uL (0.1-1.2) 06/30/20 06:22 Eos # (Auto) 0.2 X10*3/uL (0.0-0.4) 06/30/20 06:22 Baso # (Auto) 0.1 X10*3/uL (0.0-0.2) 06/30/20 06:22 Abs Immat Gran (auto) 0.15 X10*3/uL (0.00-0.03) H 06/30/20 06:22 Absolute Neuts (auto) 10.6 X10*3/uL (2.0-8.3) H 06/30/20 06:22 Absolute Nucleated RBC 0.000 X10*3/uL (0.0-0.012) 06/30/20 06:22 Nucleated RBC % (auto) 0.0 /100WBC (0.0-0.2) 06/30/20 06:22 PT 12.6 SEC (10.8-13.0) 06/29/20 20:23 INR 1.1 (0.9-1.1) 06/29/20 20:23 Sodium 133 mmol/L (135-145) L 06/30/20 06:22 Potassium 3.9 mmol/l (3.3-5.1) 06/30/20 06:22 Chloride 94 mmol/L (96-108) L 06/30/20 06:22 Carbon Dioxide 26 mmol/L (22-29) 06/30/20 06:22 Anion Gap 17 (12-20) 06/30/20 06:22 BUN 40 mg/dL (9-16) H 06/30/20 06:22 Creatinine 4.39 mg/dL (0.5-1.4) H* 06/30/20 06:22 Estim Creat Clear Calc 11.8 06/30/20 06:22 Estimated GFR 10 06/30/20 06:22 POC Glucose 214 mg/dL (60-115) H 07/02/20 07:56 Random Glucose 128 mg/dL (60-115) H D 06/30/20 06:22 Lactic Acid 1.2 mmol/L (0.5-2.0) 06/29/20 04:15 Calcium 8.2 mg/dL (8.4-10.2) L D 06/30/20 06:22 Total Bilirubin 0.5 mg/dL (0.0-1.0) 06/29/20 04:16 AST 25 U/L (5-31) 06/29/20 04:16 ALT 12 U/L (0-31) 06/29/20 04:16 Alkaline Phosphatase 98 U/L (39-117) 06/29/20 04:16 Total Protein 8.3 g/dL (6.5-8.0) H 06/29/20 04:16 Albumin 4.0 g/dL (3.5-5.0) 06/29/20 04:16 Lipase 23 U/L (8-78) 06/29/20 04:16 Urine Color YELLOW 06/29/20 06:49 Urine Appearance CLEAR 06/29/20 06:49 Urine pH 7.0 (5.0-8.0) 06/29/20 06:49 Ur Specific [place] 1.020 (1.005-1.025) 06/29/20 06:49 Urine Protein 3+ MG/DL (NEG-TRACE) H 06/29/20 06:49 Urine Glucose (UA) >=1000 MG/DL (NEG) H 06/29/20 06:49 Urine Ketones NEG MG/DL (NEG) 06/29/20 06:49 Urine Blood TRACE (NEG) 06/29/20 06:49 Urine Nitrite NEG (NEG) 06/29/20 06:49 Ur Leukocyte Esterase NEG (NEG) 06/29/20 06:49 Urine RBC 5-9 /HPF (0) H 06/29/20 06:49 Urine WBC 1-4 /HPF (0-4) 06/29/20 06:49 Ur Squamous Epith Cells 2+ /LPF 06/29/20 06:49 Urine Bacteria TRACE /LPF 06/29/20 06:49 Urine Mucus 1+ /LPF 06/29/20 06:49 Vancomycin Trough Cancelled 06/30/20 09:25 Random Vancomycin 16.2 mcg/mL (15-20) 07/02/20 06:28 Coronavirus (PCR) NEGATIVE (Negative) 06/29/20 05:17 Influenza Type A (PCR) NEGATIVE (Negative) 06/29/20 05:17 Influenza Type B (PCR) NEGATIVE (Negative) 06/29/20 05:17 RSV RNA Qual (PCR) NEGATIVE (Negative) 06/29/20 05:17 Preliminary micro results at discharge 06/29/20 04:15 Blood Culture - Preliminary Blood - Venous Staphylococcus aureus 06/29/20 04:15 Blood Culture - Preliminary Blood - Venous Staphylococcus aureus Discharge Plan Discharge Anticipated Discharge Date/Time: 07/02/20 10:53 Patient Disposition: Home, Self-Care Referrals: [facility] [Other] (You have an appointment on SundayJuly 10 at 12 noon) Serafin Rosales MD [Physician] - 1 Week (Tele Visit Veena Gee 07/05/20 2:30pm. Veena Gee will call you to discuss your hospital stay.) Discharge Medications: Continued pravastatin 40 mg tablet 40 mg PO DAILY Qty: 90 RF: 0 hydrocodone-acetaminophen [Vicodin HP] 10-300 mg tablet 1 tab PO BEDTIME PRN (Reason: pain) Qty: 7 RF: 0 warfarin 5 mg tablet 5 mg PO DAILY RF: 0 lisinopril 5 mg tablet 20 mg PO BEDTIME RF: 0 cholecalciferol (vitamin D3) 50 mcg (2,000 unit) capsule 50 mcg PO DAILY RF: 0 bumetanide 1 mg tablet 1 mg PO DAILY RF: 0 sevelamer carbonate 800 mg tablet 800 mg PO TID RF: 0 insulin detemir U-100 100 unit/mL solution 26 unit subcut DAILY RF: 0 B complex with C 20-folic acid 1 mg capsule 1 cap PO DAILY RF: 0 (DME) insulin syringe-needle U-100 0.3 mL 31 gauge x 5/16 syringe See Rx Instructions ea .ROUTE .MEDSUPPLY Qty: 10 RF: 0 quetiapine 200 mg tablet 200 mg PO BEDTIME RF: 0 insulin aspart U-100 100 unit/mL solution 8 unit subcut TID RF: 0 trazodone 100 mg tablet 100 mg PO BEDTIME RF: 0 diphenhydramine HCl 25 mg capsule 50 mg PO DAILY PRN (Reason: Itching) RF: 0 No Action carvedilol 12.5 mg tablet 12.5 mg PO ONCE RF: 0 carvedilol 12.5 mg tablet 12.5 mg PO DAILY Qty: 90 RF: 1 Discharge Orders: Discharge Order (Routine); Ordered 07/02/20 Ordered By: Stevie Arshad Diet: advance to usual diet and diabetic diet Activity on Discharge: As tolerated Discharge Date/Time: 07/02/20 16:00 Visit Report Forms: Patient Portal Discharge page Care Plan Goals: Resolution of bacteremia Health Concerns: Lack of dialysis cather and MRSA bacteremia Plan of Treatment: Follow up on Sunday for dialysis catheter placement, the place will call you
--- NOTE | 2020-07-02 12:21 | MHC.CM.PN ---
Pt has an appointment with [facility] on Thursday 07/05 at 12 noon. ([phone]).Appointment placed in D/C plan. RN aware.
--- NOTE | 2020-07-02 13:17 | MHC.CM.PN ---
Pt to be d/c home today. Appointment at [facility] on 07/05 to replace dialysis catheter. Transportation home by family. Pt. to call
--- NOTE | 2020-07-02 13:47 | MHC.CM.PN ---
Spoke with , Mercedes Shaw ([phone]). Unable to provide 24/7 help with . May be able to pay for some help, but unsure of finances at this time. [facility] cannot accept pt without 24?7 help. [facility] checking. [facility] did not yet respond. adamant about bringing home. aware that [facility] still following and can provide some supports, but not 24/7. Also aware that she can have hospice or [facility], but not both. will speak with nieces. Dr. Arshad aware
== END 2020-07-02 16:00 | disposition home or self-care (01) | DRG 314 ==
LOC: HO.ED 15:10 → HO.S3 16:22
PROVIDERS: Internal Medicine Hypertension Specialist; Radiology Diagnostic Radiology; Admitting Provider Internal Medicine; Emergency Provider Student in an Organized Health Care Education/Training Program; Visit Provider Internal Medicine
PROC: 0JH63XZ Insertion of Tunneled Vascular Access Device into Chest Subcutaneous Tissue and Fascia, Percutaneous Approach (ICD-10-PCS; principal; 2020-06-30 11:00)
DX: T82.7XXA Infection and inflammatory reaction due to other cardiac and vascular devices, implants and grafts, initial encounter (principal); A41.9 Sepsis, unspecified organism; N18.6 End stage renal disease; T82.42XA Displacement of vascular dialysis catheter, initial encounter; L03.313 Cellulitis of chest wall; I13.2 Hypertensive heart and chronic kidney disease with heart failure and with stage 5 chronic kidney disease, or end stage renal disease; E11.22 Type 2 diabetes mellitus with diabetic chronic kidney disease; E78.5 Hyperlipidemia, unspecified; Z99.2 Dependence on renal dialysis; Z20.828 Contact with and (suspected) exposure to other viral communicable diseases; Z87.891 Personal history of nicotine dependence; I50.9 Heart failure, unspecified; E11.628 Type 2 diabetes mellitus with other skin complications; Z88.5 Allergy status to narcotic agent; Z79.4 Long term (current) use of insulin; Z79.01 Long term (current) use of anticoagulants; Z79.899 Other long term (current) drug therapy
CPT/HCPCS: 0241U; 36415; 36556; 71045; 71250; 76937; 80048; 80053; 80202; 81001; 82947; 83605; 83690; 85025; 85610; 87040; 87071; 87077; 87147; 87186; 87205; 90999; 93005; 96365; 96367; 99285; C1752; J0696; J2405; J3370

== ENCOUNTER 2021-01-09 04:32 | Emergency (ER) | payer MEDICARE, MEDICAID, SELFPAY ==
[2021-01-09] VITALS (33 sets, daily range): BP systolic 159–258; BP diastolic 82–121; PULSE 75–104; RESP 18–26; TEMP 35.7; O2SAT 95–100; BMI 25.4
--- NOTE | ~2021-01-09 | CT_ITS ---
EXAMINATION: CT HEAD WITHOUT CONTRAST CLINICAL INFORMATION: Dizziness COMPARISON: 02/07/2020 TECHNIQUE: Contiguous axial imaging was performed from the skull base to vertex without intravenous administration of contrast. This CT examination was performed using dose optimization techniques as appropriate, variously including the following: *Automated exposure control *Adjustment of mA and/or kV according to patient size (this includes techniques or standardized protocols for targeted exams where dose is matched to indication/reason for exam; i.e. extremities or head) *Use of iterative reconstruction technique DLP: 702 mGy-cm FINDINGS: There is no evidence of acute intracranial hemorrhage or territorial infarction. No abnormal mass effect or midline shift is seen. Maldonado to white matter differentiation is well preserved. No extra-axial fluid collections are identified. The ventricles are normal in size. There is mild periventricular white matter hypoattenuation consistent with chronic small vessel ischemic disease. The osseous structures and soft tissues are normal. There is partial opacification of the right sphenoid sinus and posterior ethmoid air cells bilaterally. The mastoid air cells are well-aerated. CT/CT head/brain wo con IMPRESSION: No acute intracranial pathology.
--- NOTE | ~2021-01-09 | XR_ITS ---
EXAMINATION: XR CHEST CLINICAL INFORMATION: Intubation COMPARISON: 01/09/2021 TECHNIQUE: Frontal view of the chest was obtained. FINDINGS: Endotracheal tube tip lies at the level of the jennifer, directed towards the right mainstem bronchus. Enteric tube courses below the diaphragm. Right IJ central line tip lies in the region of the right atrium. Lung volumes are symmetric. Redemonstrated small pleural effusions and mild bibasilar opacities. Central vasculature remains prominent. No evidence of pneumothorax. Cardiac size is within normal limits. Calcification is present at the aortic arch. No acute osseous findings are seen. XR/XR chest 1V IMPRESSION: 1. Endotracheal tube tip at the level of the jennifer. Retraction recommended. 2. Central vascular congestion. 3. Redemonstrated small pleural effusions and bibasilar opacities which may represent atelectasis. This critical result was discussed with Dr. Tracy on 01/09/2021 6:59 AM, and it was ascertained that the content and urgency of the report was understood at the time of direct communication.
--- NOTE | ~2021-01-09 | XR_ITS ---
EXAMINATION: XR CHEST CLINICAL INFORMATION: Altered mental status COMPARISON: 06/29/2020 TECHNIQUE: Frontal view of the chest was obtained. FINDINGS: Right IJ central venous catheter tip lies at the level of the right atrium. Lung volumes are symmetric. There are small bilateral pleural effusions with adjacent mild basilar opacities. No evidence of pneumothorax. Central vasculature is mildly prominent. Cardiac size is within normal limits. Calcification is present at the aortic arch. No acute osseous findings are seen. XR/XR chest 1V IMPRESSION: Small pleural effusions and adjacent bibasilar opacities which may represent atelectasis. Increasing central vascular prominence likely represents congestion.
--- NOTE | 2021-01-09 04:50 | ECG_ITS ---
Test Reason : UNRESPONSIVE Blood Pressure : / mmHG Vent. Rate : 107 BPM Atrial Rate : 107 BPM P-R Int : 164 ms QRS Dur : 080 ms QT Int : 356 ms P-R-T Axes : 061 -20 098 degrees QTc Int : 475 ms Sinus tachycardia T wave abnormality, consider lateral ischemia Abnormal ECG When compared with ECG of 29-JUN-2020 04:40, T wave inversion less evident in Lateral leads Referred By: Jazz Tracy Electronically Signed By:JASIEL HERBERT MD
[2021-01-09 05:07] LABS: Basophils Absolute Auto 0.1 X10*3/uL (0.0-0.2); Basophils Percent Auto 0.4 % (0-2); Eosinophils Absolute Auto 0.5 X10*3/uL (0.0-0.4); Hematocrit 31.6 % (37-47); Hemoglobin 11.1 g/dl (12.0-16.0); Imm Gran Abs Auto 0.19 X10*3/uL (0.00-0.03); Imm Gran Pct Auto 1.1 % (0.0-0.4); Lymphocytes Absolute Auto 3.1 X10*3/uL (1.2-4.9); MANUAL DIFF FLAG NO; Mean Corpuscular HGB Conc 35.1 g/dl (31.0-35.0); Mean Platelet Volume 11.9 fL (9.4-12.3); Monocytes Absolute Auto 1.2 X10*3/uL (0.1-1.2); Monocytes Percent Auto 6.5 % (2-11); Neutrophils Absolute Auto 12.9 X10*3/uL (2.0-8.3); Platelet Count 226 X10*3/uL (160-400); Red Blood Count 3.36 X10*6/uL (4.20-5.50); Red Cell Distribution Width 15.2 % (11.0-16.0); Venous Blood Gas Refer to POC result
[2021-01-09 05:09] LABS: VBG HCO3 27 mmol/L (22-26); VBG pCO2 60 mmHg; VBG pH 7.26 (7.32-7.43); VBG pO2 85 mmHg
[2021-01-09] MEDS: Insulin Regular, Human 100 UNIT/ML 3 ML VIAL 10 UNIT IVPUSH (05:11)
[2021-01-09] MEDS: Insulin Regular/NS 100 UNIT/100 ML PLAST..BAG 6 UNIT IVCONT (05:12)
--- NOTE | 2021-01-09 05:17 | PC.NURSE ---
PATIENT UNABLE TO HANDLE SECRETIONS, DROOLING, TEARFUL. ON ARRIVAL THIS RN CONCERNED WITH STROKE LIKE SYMPTOMS, NON-VERBAL .UNABLE TO FOLLOW INSTRUCTIONS DROPPING ARMS WHEN RAISED. EYE TWITCHING. PATIENT NOT FOLLOWING PROVIDERS WHEN SPEAKING TO HER. DR. ALVARADO AT BEDSIDE RIGHT AWAY. PATIENT GETTING IV ACCESS AND TAKEN TO CT SCAN, FOR STAT IMAGING OF HEAD. PATIENT IS COOL TO THE TOUCH AND DIAPHORETIC
[2021-01-09 05:20] LABS: Acetone, serum QL Negative (Negative)
[2021-01-09] MEDS: Labetalol HCL 100 MG/20 ML VIAL 10 MG IVPUSH ×2 (05:21→05:45)
--- NOTE | 2021-01-09 05:22 | PC.NURSE ---
LABS SENT AWAITING RESULTS. PATIENT NOW HAVING TWITCHING OF THE RIGHT SIDE OF HER FACE. THEN STOPPING, APPEARS TO BE SEIZURE LIKE ACTIVITY. HIGH BLOOD PRESSURE MD ORDERS FOR LABETALOL, PATIENT GIVEN INSULIN PER EMAR WELL, STARTED ON INSULIN DRIP. CONTINUES TO BE NON-VERBAL.
[2021-01-09 05:28] LABS: Ethanol < 10 mg/dL
[2021-01-09 05:40] LABS: Alanine Aminotransferase 17 U/L (0-31); Albumin Level 4.2 g/dL (3.5-5.0); Alkaline Phosphatase 193 U/L (39-117); Anion Gap 19 (12-20); Aspartate Amino Transferase 26 U/L (5-31); Bilirubin Total 0.5 mg/dL (0.0-1.0); Blood Urea Nitrogen 33 mg/dL (9-16); Carbon Dioxide 22 mmol/L (22-29); Chloride 88 mmol/L (96-108); Creatinine Clr Calc Pharmacy 10.9; Estimated Glomerular Filt Rate 9; Glucose Random 846 mg/dL (60-115); Magnesium 2.1 mg/dL (1.6-2.6); Phosphorus 4.6 mg/dL (2.7-4.5); Potassium 4.1 mmol/L (3.3-5.1); Sodium 125 mmol/L (135-145); Total Protein 8.1 g/dL (6.5-8.0)
--- NOTE | 2021-01-09 05:58 | PC.NURSE ---
PATIENT CONTNIUES TO BE UNRESPONSIVE, APPEARS TO BE HAVING SEIZURE LIKE ACTIVITY. BLOOD PRESSURES CONTINUES TO RISE AGAIN AFTER HAVING LABETOLOL. PROVIDER ALVARADO AWARE. BLOOD SUGAR READING OF 588 AT THIS TIME, INSULIN DRIP ONTNIUES TO RUN.
[2021-01-09 06:09] LABS: Glucose, Whole Blood 588 mg/dL (60-115)
[2021-01-09 06:09] LABS: Glucose, Whole Blood > 600 mg/dL (60-115)
[2021-01-09 06:09] LABS: Glucose, Whole Blood > 600 mg/dL (60-115)
[2021-01-09 06:09] LABS: Glucose, Whole Blood > 600 mg/dL (60-115)
[2021-01-09 06:09] LABS: Glucose, Whole Blood > 600 mg/dL (60-115)
[2021-01-09 06:14] LABS: COVID-19 Test Negative (Negative); IDNOW Serial# 9DD0AD1C
--- NOTE | 2021-01-09 06:14 | PC.NURSE ---
PATIENT BECOMING MORE OBTUNDED, INTUBATION
--- NOTE | 2021-01-09 06:30 | PC.NURSE ---
PATIENT STAT INBTUBATED FOR OBTUNDED, UNABLE TO MANAGE SECRETIONS. GIVEN 20 ETOMIDATE AND [address] HSU, [place] RN. 7.5 TUBE 25 AT THE LIP, VENT SETTINGS ARE RR 18, TIDAL VOLUME 400, 5 PEEP, FIO2 45%. HR IS 80, RR 20, B/P 229/10. WHEN PLACED HAVING POSITIVE COLOR CHANGE, BILAT BREATH SOUNDS. AFTER INTUBATION HR 76, B/P 177/93. INSULIN GIANA NAIDU MD ORDERS PROPROFOL FOR SEDATION.
--- NOTE | 2021-01-09 06:43 | ED_ITS ---
HPI - Altered Mental Status General Chief Complaint: Altered Mental Status Stated Complaint: hyperglycemia Time Seen by Provider: 01/09/21 04:50 History of Present Illness HPI narrative: Patient is a 60-year-old female with a history of diabetes. Patient also has a history of end-stage renal disease. Went to dialysis on Sunday. Normally gets dialysis Sunday. Presents today with having change in mental status. Patient unable to give details. Per son patient is no longer on Coumadin. Baseline patient is awake alert oriented. EMS reports a sugar that was high high. Unable to obtain detailed history secondary to patient's mental status. Son reports no fever no chills no coughing or congestion or upper respiratory symptoms. Patient's baseline does not make any urine. Related Data Home Medications Medication Instructions Recorded Confirmed diphenhydramine HCl 25 mg capsule 50 mg PO DAILY PRN 06/03/20 06/29/20 insulin syringe-needle U-100 0.3 #10 ea 06/03/20 06/03/20 mL 31 gauge x 12/12 lisinopril 5 mg tablet 20 mg PO BEDTIME 06/03/20 06/29/20 sevelamer carbonate 800 mg tablet 800 mg PO TID 06/03/20 06/29/20 vitamin B complex and vitamin C 1 cap PO DAILY 06/03/20 06/29/20 no.20-folic acid 1 mg capsule carvedilol 12.5 mg tablet 12.5 mg PO ONCE tab 07/13/20 insulin aspart U-100 100 unit/mL 8 unit SUBCUT TID ml 08/03/20 subcutaneous solution omeprazole 20 mg delayed 20 mg PO DAILY tab 12/14/20 release,disintegrating tablet Previous Rx's Medication Instructions Recorded hydrocodone-acetaminophen [Vicodin 1 tab PO BEDTIME PRN #7 tab 05/04/20 HP] carvedilol 12.5 mg tablet 12.5 mg PO DAILY #90 tab 07/13/20 insulin aspart U-100 100 unit/mL 8 unit SUBCUT TID #30 ml 08/03/20 subcutaneous solution bumetanide 1 mg tablet 1 mg PO BID #60 tab 08/23/20 pravastatin 40 mg tablet 40 mg PO DAILY #90 tab 08/23/20 blood sugar diagnostic 1 strip MISCELLANEOUS QID #350 09/29/20 strip cholecalciferol (vitamin D3) 50 50 mcg PO DAILY #30 cap 12/20/20 mcg (2,000 unit) capsule trazodone 100 mg tablet 100 mg PO BEDTIME #30 tab 12/20/20 warfarin 5 mg tablet 5 mg PO DAILY #30 tab 12/20/20 insulin detemir U-100 100 unit/mL 26 unit SUBCUT DAILY #20 ml 01/04/21 subcutaneous solution quetiapine 200 mg tablet 200 mg PO BEDTIME #90 tab 01/04/21 Allergies Allergy/AdvReac Type Severity Reaction Status Date / Time heparin [HEPARIN] Allergy Severe HEPARIN-INDUCED Verified 06/29/20 07:33 THROMBOCYTOPENIA adhesive tape [ADHESIVE TAPE] Allergy Intermediate LOCALIZED Verified 06/29/20 07:33 BLISTER morphine [MORPHINE] Allergy Intermediate GI UPSET Verified 06/29/20 07:33 warfarin Allergy Mild Unknown Verified 06/29/20 07:33 Review of Systems Review of Systems: Unable to obtain review of systems secondary to patient's condition. [facility] Past Medical History Medical History Cellulitis of chest wall CHF (congestive heart failure) Chronic renal failure Diabetes mellitus, type 2 Encounter for screening colonoscopy ESRD (end stage renal disease) Hypertension Seizures Surgical History H/O section H/O removal of cyst History of carpal tunnel surgery of left wrist History of phacoemulsification of cataract of right eye with intraocular lens implantation Family History Family History Father Arthritis Mother Cancer Diabetes Brother No problems noted. Sister No problems noted. Sister No problems noted. Son No problems noted. Son No problems noted. Daughter No problems noted. Daughter No problems noted. Daughter Thyroid condition Social History Social History Household Members: Spouse Housing: Apartment Do you presently have visiting nurse or other home services: Yes ([employer]) Alcohol intake: unknown Patient Tobacco Use Status: Tobacco use Unknown Use of substances other than those prescribed or required for medical reasons: Unknown Advance Directives: Yes Advance Directives on File: Yes Advance Directives Date on File: 06/29/20 Patient : No service: No Current occupational status: unemployed Physical Exam Vital Signs: Vital Signs: Last Vital Signs Temp 96.3 F L 01/09/21 05:13 Pulse 76 01/09/21 07:05 Resp 18 01/09/21 07:05 BP 190/96 H 01/09/21 07:05 Pulse Ox 100 01/09/21 07:05 Oxygen Flow Rate 3 01/09/21 05:13 Body Mass Index 25.4 Appearance: Lethargic, grimace to pain. Minimal gag reflex noted. No acute distress. Eyes: Pupils equal, round and reactive to light. ENT: Pharynx normal. Mucous membrane was dry Neck: Normal inspection. Neck supple. No lymph nodes noted. No crepitus CVS: Normal heart rate and rhythm. Pulses normal. Normal S1 and S2 Respiratory: No respiratory distress. Breath sounds normal. No Wheezing. No rales Abdomen: Soft and nontender. No rigidity. No distention. good BS x4 Skin: Skin warm and dry. Normal skin color. Normal skin turgor. Extremities: No lower extremity edema. Neurovascular intact to all extremities. No Lacerations. No Rash Neuro: Oriented times 0. Grimaces to painful stimuli. Minimal gag. Not moving extremities. Procedures Intubation Time out performed: Yes sedative: Etomidate Mg Given: 20 paralytic: Succinylcholine Mg Given: 100 Laryngoscope: fiber optic video scope (s4) ET Tube Size: 7.5 ET Tube Uncuffed: Yes Tube Secured Depth (cm): 25 Tube Secured Location: teeth Tube Placement Confirmation: visualized tube passing through cords Patient Tolerated Procedure: well Intubation Complications: none MDM - Altered Mental Status MDM Narrative Medical decision making narrative: Patient's sugar was read as high high. CT scan of the head was done. There is no evidence of bleeding. No mass noted. Question patient's mental status secondary to elevated sugar from hyperosmolar nonketotic coma. Started patient on insulin drip. Patient was not given IV fluid as she has a history of end-stage renal disease. He is on dialysis. Patient had an a normal anion gap. Glucose was 850 from the Chem 7. Patient's sodium was 125 likely secondary to pseudo hyponatremia secondary to the elevated sugar. Patient's potassium was 4.1. Because patient's mental status did not change with time. Still very lethargic. Elected to intubate patient. Patient's case discussed with surgical appliances salesperson at [facility]. () Excepted patient's transfer. We have no bed here in the ICU at [facility]. Patient started on propofol drip for sedation. Patient is being transferred to [facility]. Differential Diagnosis Differential diagnosis: Likely altered mental status and renal failure Medical Records Attestation: I reviewed the patient's medical records. Lab Data Attestation: I reviewed the patient's lab results. Result diagrams: 01/09/21 04:55 01/09/21 04:55 Labs: Lab Results 01/09/21 01/09/21 01/09/21 Range/Units 04:37 04:39 04:55 WBC 18.0 H (4.8-10.8) X10*3/uL RBC 3.36 L (4.20-5.50) X10*6/uL Hgb 11.1 L (12.0-16.0) g/dl Hct 31.6 L (37-47) % MCV 94.0 (80-98) fL MCH 33.0 (27.0-33.0) pg MCHC 35.1 H (31.0-35.0) g/dl RDW 15.2 (11.0-16.0) % Plt Count 226 D (160-400) X10*3/uL MPV 11.9 (9.4-12.3) fL Immature Gran % (Auto) 1.1 H (0.0-0.4) % Neut % (Auto) 72.0 (45-73) % Lymph % (Auto) 17.0 L (20-40) % [place] % (Auto) 6.5 (2-11) % Eos % (Auto) 3.0 (0-4) % Baso % (Auto) 0.4 (0-2) % Lymph # (Auto) 3.1 (1.2-4.9) X10*3/uL [place] # (Auto) 1.2 (0.1-1.2) X10*3/uL Eos # (Auto) 0.5 H (0.0-0.4) X10*3/uL Baso # (Auto) 0.1 (0.0-0.2) X10*3/uL Abs Immat Gran (auto) 0.19 H (0.00-0.03) X10*3/uL Absolute Neuts (auto) 12.9 H (2.0-8.3) X10*3/uL Absolute Nucleated RBC 0.000 (0.0-0.012) X10*3/uL Nucleated RBC % (auto) 0.0 (0.0-0.2) /100WBC VBG pH (7.32-7.43) VBG pCO2 mmHg VBG pO2 mmHg VBG HCO3 (22-26) mmol/L VBG O2 Saturation % VBG Base Excess mmol/L Sodium (135-145) mmol/L Potassium (3.3-5.1) mmol/L Chloride (96-108) mmol/L Carbon Dioxide (22-29) mmol/L Anion Gap (12-20) BUN (9-16) mg/dL Creatinine (0.5-1.4) mg/dL Estim Creat Clear Calc Estimated GFR POC Glucose > 600 H* > 600 H* (60-115) mg/dL Random Glucose (60-115) mg/dL Calcium (8.4-10.2) mg/dL Phosphorus (2.7-4.5) mg/dL Magnesium (1.6-2.6) mg/dL Total Bilirubin (0.0-1.0) mg/dL AST (5-31) U/L ALT (0-31) U/L Alkaline Phosphatase (39-117) U/L Total Protein (6.5-8.0) g/dL Albumin (3.5-5.0) g/dL Ethyl Alcohol mg/dL Acetone, Qual (Negative) COVID-19 (MOISES) (Negative) COVID-19 Clin Com 01/09/21 01/09/21 01/09/21 Range/Units 04:55 04:55 05:01 WBC (4.8-10.8) X10*3/uL RBC (4.20-5.50) X10*6/uL Hgb (12.0-16.0) g/dl Hct (37-47) % MCV (80-98) fL MCH (27.0-33.0) pg MCHC (31.0-35.0) g/dl RDW (11.0-16.0) % Plt Count (160-400) X10*3/uL MPV (9.4-12.3) fL Immature Gran % (Auto) (0.0-0.4) % Neut % (Auto) (45-73) % Lymph % (Auto) (20-40) % [place] % (Auto) (2-11) % Eos % (Auto) (0-4) % Baso % (Auto) (0-2) % Lymph # (Auto) (1.2-4.9) X10*3/uL [place] # (Auto) (0.1-1.2) X10*3/uL Eos # (Auto) (0.0-0.4) X10*3/uL Baso # (Auto) (0.0-0.2) X10*3/uL Abs Immat Gran (auto) (0.00-0.03) X10*3/uL Absolute Neuts (auto) (2.0-8.3) X10*3/uL Absolute Nucleated RBC (0.0-0.012) X10*3/uL Nucleated RBC % (auto) (0.0-0.2) /100WBC VBG pH 7.26 L (7.32-7.43) VBG pCO2 60 mmHg VBG pO2 85 mmHg VBG HCO3 27 H (22-26) mmol/L VBG O2 Saturation 93.0 % VBG Base Excess -1.0 mmol/L Sodium 125 L (135-145) mmol/L Potassium 4.1 (3.3-5.1) mmol/L Chloride 88 L (96-108) mmol/L Carbon Dioxide 22 (22-29) mmol/L Anion Gap 19 (12-20) BUN 33 H (9-16) mg/dL Creatinine 4.91 H* (0.5-1.4) mg/dL Estim Creat Clear Calc 10.9 Estimated GFR 9 POC Glucose (60-115) mg/dL Random Glucose 846 H* (60-115) mg/dL Calcium 9.0 D (8.4-10.2) mg/dL Phosphorus 4.6 H (2.7-4.5) mg/dL Magnesium 2.1 (1.6-2.6) mg/dL Total Bilirubin 0.5 (0.0-1.0) mg/dL AST 26 (5-31) U/L ALT 17 (0-31) U/L Alkaline Phosphatase 193 H D (39-117) U/L Total Protein 8.1 H (6.5-8.0) g/dL Albumin 4.2 (3.5-5.0) g/dL Ethyl Alcohol < 10 mg/dL Acetone, Qual Negative (Negative) COVID-19 (MOISES) (Negative) COVID-19 Clin Com 01/09/21 01/09/21 01/09/21 Range/Units 05:04 05:41 05:55 WBC (4.8-10.8) X10*3/uL RBC (4.20-5.50) X10*6/uL Hgb (12.0-16.0) g/dl Hct (37-47) % MCV (80-98) fL MCH (27.0-33.0) pg MCHC (31.0-35.0) g/dl RDW (11.0-16.0) % Plt Count (160-400) X10*3/uL MPV (9.4-12.3) fL Immature Gran % (Auto) (0.0-0.4) % Neut % (Auto) (45-73) % Lymph % (Auto) (20-40) % [place] % (Auto) (2-11) % Eos % (Auto) (0-4) % Baso % (Auto) (0-2) % Lymph # (Auto) (1.2-4.9) X10*3/uL [place] # (Auto) (0.1-1.2) X10*3/uL Eos # (Auto) (0.0-0.4) X10*3/uL Baso # (Auto) (0.0-0.2) X10*3/uL Abs Immat Gran (auto) (0.00-0.03) X10*3/uL Absolute Neuts (auto) (2.0-8.3) X10*3/uL Absolute Nucleated RBC (0.0-0.012) X10*3/uL Nucleated RBC % (auto) (0.0-0.2) /100WBC VBG pH (7.32-7.43) VBG pCO2 mmHg VBG pO2 mmHg VBG HCO3 (22-26) mmol/L VBG O2 Saturation % VBG Base Excess mmol/L Sodium (135-145) mmol/L Potassium (3.3-5.1) mmol/L Chloride (96-108) mmol/L Carbon Dioxide (22-29) mmol/L Anion Gap (12-20) BUN (9-16) mg/dL Creatinine (0.5-1.4) mg/dL Estim Creat Clear Calc Estimated GFR POC Glucose > 600 H* > 600 H* (60-115) mg/dL Random Glucose (60-115) mg/dL Calcium (8.4-10.2) mg/dL Phosphorus (2.7-4.5) mg/dL Magnesium (1.6-2.6) mg/dL Total Bilirubin (0.0-1.0) mg/dL AST (5-31) U/L ALT (0-31) U/L Alkaline Phosphatase (39-117) U/L Total Protein (6.5-8.0) g/dL Albumin (3.5-5.0) g/dL Ethyl Alcohol mg/dL Acetone, Qual (Negative) COVID-19 (MOISES) Negative (Negative) COVID-19 Clin Com See Note 01/09/21 01/09/21 Range/Units 06:06 06:41 WBC (4.8-10.8) X10*3/uL RBC (4.20-5.50) X10*6/uL Hgb (12.0-16.0) g/dl Hct (37-47) % MCV (80-98) fL MCH (27.0-33.0) pg MCHC (31.0-35.0) g/dl RDW (11.0-16.0) % Plt Count (160-400) X10*3/uL MPV (9.4-12.3) fL Immature Gran % (Auto) (0.0-0.4) % Neut % (Auto) (45-73) % Lymph % (Auto) (20-40) % [place] % (Auto) (2-11) % Eos % (Auto) (0-4) % Baso % (Auto) (0-2) % Lymph # (Auto) (1.2-4.9) X10*3/uL [place] # (Auto) (0.1-1.2) X10*3/uL Eos # (Auto) (0.0-0.4) X10*3/uL Baso # (Auto) (0.0-0.2) X10*3/uL Abs Immat Gran (auto) (0.00-0.03) X10*3/uL Absolute Neuts (auto) (2.0-8.3) X10*3/uL Absolute Nucleated RBC (0.0-0.012) X10*3/uL Nucleated RBC % (auto) (0.0-0.2) /100WBC VBG pH (7.32-7.43) VBG pCO2 mmHg VBG pO2 mmHg VBG HCO3 (22-26) mmol/L VBG O2 Saturation % VBG Base Excess mmol/L Sodium (135-145) mmol/L Potassium (3.3-5.1) mmol/L Chloride (96-108) mmol/L Carbon Dioxide (22-29) mmol/L Anion Gap (12-20) BUN (9-16) mg/dL Creatinine (0.5-1.4) mg/dL Estim Creat Clear Calc Estimated GFR POC Glucose 588 H* 551 H* (60-115) mg/dL Random Glucose (60-115) mg/dL Calcium (8.4-10.2) mg/dL Phosphorus (2.7-4.5) mg/dL Magnesium (1.6-2.6) mg/dL Total Bilirubin (0.0-1.0) mg/dL AST (5-31) U/L ALT (0-31) U/L Alkaline Phosphatase (39-117) U/L Total Protein (6.5-8.0) g/dL Albumin (3.5-5.0) g/dL Ethyl Alcohol mg/dL Acetone, Qual (Negative) COVID-19 (MOISES) (Negative) COVID-19 Clin Com Critical Care Time Critical Care Time Critical Care Time: Yes Total Critical Care Time: 120 Attestation: I have personally provided 120 minutes of critical care time exclusive of time spent on separately billable procedures. Time includes review of lab data, radiology results, discussion with consultants, and monitoring for potential decompensation. Interventions were performed as documented above Discharge Plan Discharge Clinical Impression: Altered mental status, Hyperosmolar (nonketotic) coma Patient Disposition: Xfer Other Prescriptions: No Action carvedilol 12.5 mg tablet 12.5 mg PO ONCE RF: 0 carvedilol 12.5 mg tablet 12.5 mg PO DAILY Qty: 90 RF: 1 insulin aspart U-100 100 unit/mL solution 8 unit subcut TID RF: 0 insulin aspart U-100 [Novolog U-100 Insulin aspart] 100 unit/mL solution 8 unit subcut TID Qty: 30 RF: 2 pravastatin 40 mg tablet 40 mg PO DAILY Qty: 90 RF: 3 bumetanide 1 mg tablet 1 mg PO BID Qty: 60 RF: 4 blood sugar diagnostic [FreeStyle Lite Strips] Strip 1 strip miscellaneous QID Qty: 350 RF: 2 trazodone 100 mg tablet 100 mg PO BEDTIME Qty: 30 RF: 3 warfarin 5 mg tablet 5 mg PO DAILY Qty: 30 RF: 3 cholecalciferol (vitamin D3) 50 mcg (2,000 unit) capsule 50 mcg PO DAILY Qty: 30 RF: 10 quetiapine 200 mg tablet 200 mg PO BEDTIME Qty: 90 RF: 3 insulin detemir U-100 [Levemir U-100 Insulin] 100 unit/mL solution 26 unit subcut DAILY Qty: 20 RF: 3 hydrocodone-acetaminophen [Vicodin HP] 10-300 mg tablet 1 tab PO BEDTIME PRN (Reason: pain) Qty: 7 RF: 0 lisinopril 5 mg tablet 20 mg PO BEDTIME RF: 0 sevelamer carbonate 800 mg tablet 800 mg PO TID RF: 0 B complex with C 20-folic acid 1 mg capsule 1 cap PO DAILY RF: 0 (DME) insulin syringe-needle U-100 0.3 mL 31 gauge x 5/16 syringe See Rx Instructions ea .ROUTE .MEDSUPPLY Qty: 10 RF: 0 diphenhydramine HCl 25 mg capsule 50 mg PO DAILY PRN (Reason: Itching) RF: 0
[2021-01-09 06:45] LABS: Glucose, Whole Blood 551 mg/dL (60-115)
--- NOTE | 2021-01-09 06:50 | PC.NURSE ---
PROPROFOL DRIP STARTED AT 20MCG/KG/MIN, CONFIRMED WITH KD FLORES. UNABLE TO SCAN MEDICATION IN EMAR.
--- NOTE | 2021-01-09 07:04 | PC.NURSE ---
ETT TUB PULLED BACK 3CM FOR BETTER PLACEMENT NOW 22 AT THE LIP
--- NOTE | 2021-01-09 07:08 | PC.NURSE ---
accepted at [facility] daily 5B room 10 report [phone]
--- NOTE | 2021-01-09 07:32 | PC.NURSE ---
REPORT GIVEN TO [facility] ICU, PATIENT POC RECHECKED AT THIS TIME POC IS 457. AWAITING EMS TRANSPORT
[2021-01-09 07:38] LABS: Glucose, Whole Blood 457 mg/dL (60-115)
--- NOTE | 2021-01-09 07:42 | PC.NURSE ---
DUE TO PATIENTS BLOOD SUGAR LOWERING BY 94 IN THE LAST HOUR, REDUCTION OF INSULIN DRIP TO 4 UNITS TO HOUR WITNESSED BY JARRETT FLORES
[2021-01-09 08:29] LABS: Glucose, Whole Blood 378 mg/dL (60-115)
== END 2021-01-09 08:47 | disposition other institution (70) ==
PROVIDERS: Emergency Provider Emergency Medicine Emergency Medical Services; PCP Internal Medicine
DX: R41.82 Altered mental status, unspecified (principal); E11.01 Type 2 diabetes mellitus with hyperosmolarity with coma; E11.65 Type 2 diabetes mellitus with hyperglycemia; Z79.4 Long term (current) use of insulin; Z20.822 Contact with and (suspected) exposure to COVID-19
CPT/HCPCS: 31500; 36415; 70450; 71045; 80053; 82009; 82077; 82947; 83735; 84100; 85025; 87635; 93005; 94002; 96365; 96366; 96368; 96374; 96375; 99285; 99291; 99292; J0330

== ENCOUNTER 2021-01-17 18:45 | Inpatient (IN) | payer MEDICARE, MEDICAID, SELFPAY ==
[2021-01-17] VITALS (8 sets, daily range): BP systolic 154–244; BP diastolic 75–108; PULSE 82–99; RESP 15–20; TEMP 36.8–37.1; O2SAT 95–100; BMI 25.9
--- NOTE | ~2021-01-17 | XR_ITS ---
EXAMINATION: XR SOFT TISSUE NECK CLINICAL INDICATION: Foreign body sensation COMPARISON: None TECHNIQUE: 2 views of the soft tissue neck were obtained. FINDINGS: Soft tissue films of the neck demonstrate a normal larynx, pharynx and upper trachea. No soft tissue swelling or opaque foreign body is demonstrated. Calcification present in the aorta. Mild degenerative changes present in the spine. XR/XR soft tissue neck IMPRESSION: Unremarkable examination.
--- NOTE | ~2021-01-17 | CT_ITS ---
EXAMINATION: CT SOFT TISSUE NECK WITHOUT CONTRAST CLINICAL INFORMATION: Stridor COMPARISON: CT dated 06/24/2019 TECHNIQUE: Helical imaging was performed in the axial plane with generation of coronal and sagittal reformatted images. This CT examination was performed using dose optimization techniques as appropriate, variously including the following: *Automated exposure control *Adjustment of mA and/or kV according to patient size (this includes techniques or standardized protocols for targeted exams where dose is matched to indication/reason for exam; i.e. extremities or head) *Use of iterative reconstruction technique DLP: 498 mGy-cm FINDINGS: There is abnormal, asymmetric fullness in the right supraglottic region at the aryepiglottic fold with mucosal thickening and edema. No discrete abscess is identified. The epiglottis is normal in appearance. There is mild surrounding fat stranding in this region. No retropharyngeal collections or fluid identified. The larynx appears similar to prior without focal abnormalities. No cervical adenopathy is identified. The parotid glands are homogeneous in attenuation. The submandibular glands are normal. Calcific atherosclerosis is evident within the carotid arteries bilaterally. No extra mucosal soft tissue mass or fluid collection is seen. A 0.7 cm left thyroid lobe hypodensity is noted. No additional follow-up is necessary. Thyroid gland is otherwise normal. There is a borderline enlarged 1.1 cm precarinal lymph node as well as a 1.3 cm AP window lymph node multiple additional prominent subcentimeter lymph nodes are present in the upper mediastinum. The lung apices are clear. Right tunneled dual-lumen dialysis catheter is partially included. The mastoid air cells and visualized portions of the paranasal sinuses are well-aerated. The temporomandibular joints are normal. Multiple dental caries are evident bilaterally with multifocal periapical lucencies at both the maxilla and mandible, consistent with apical periodontitis. No osseous abnormalities are seen in the cervical spine. There is mild to moderate multifocal degenerative disease with prominent posterior disc osteophyte complexes produce at least mild central canal narrowing at C3-C4, C4-C5, and C5-C6. Imaged portions of the brain parenchyma are unremarkable. CT/CT soft tissue neck wo con IMPRESSION: Asymmetric mucosal fullness of the right aryepiglottic fold with surrounding fat stranding, concerning for asymmetric supraglottitis. No abscess is identified. A dedicated neuroradiology over read will be performed in the morning. Numerous dental caries with associated multifocal apical periodontitis Mild mediastinal adenopathy of uncertain significance.
--- NOTE | ~2021-01-17 | XR_ITS ---
EXAMINATION: XR CHEST CLINICAL INFORMATION: Cough COMPARISON: 01/09/2021 TECHNIQUE: Frontal view of the chest was obtained. FINDINGS: A tunneled right jugular dialysis catheter has its tip in the mid right atrium. Previously seen left lower lobe collapse/consolidation and bilateral pleural effusions have resolved. Currently, no significant abnormality is noted involving the heart, lungs, mediastinum, bony thorax or soft tissues. XR/XR chest 1V IMPRESSION: Unremarkable examination.
--- NOTE | 2021-01-17 19:12 | PC.NURSE ---
REPORT TO SANDRA DUEÑAS
--- NOTE | 2021-01-17 19:53 | ECG_ITS ---
Test Reason : SOB/HYPERTENTION Blood Pressure : / mmHG Vent. Rate : 084 BPM Atrial Rate : 084 BPM P-R Int : 150 ms QRS Dur : 074 ms QT Int : 386 ms P-R-T Axes : 073 -31 095 degrees QTc Int : 456 ms Normal sinus rhythm Left axis deviation Abnormal QRS-T angle, consider primary T wave abnormality Abnormal ECG When compared with ECG of 09-JAN-2021 05:07, No significant change was found Referred By: Estefany Carrera Electronically Signed By:Vincenzo Medel
--- NOTE | 2021-01-17 20:01 | ED.GENADULT ---
HPI - General Adult General Chief complaint: Dyspnea Stated complaint: sob Time Seen by Provider: 01/17/21 19:47 Source: patient Mode of arrival: EMS Limitations: no limitations History of Present Illness HPI narrative: Patient comes to emergency room complaining of a cough. Patient states that she was discharged from [facility] yesterday after being extubated for respiratory difficulty. Patient states today she went to dialysis. It was noted that patient's blood pressure is 220 systolic. Patient denies chest pain. Related Data Home Medications Medication Instructions Recorded Confirmed insulin syringe-needle U-100 0.3 #10 ea 06/03/20 06/03/20 mL 31 gauge x 12/12 bumetanide 1 tab PO BID 01/17/21 01/17/21 cholecalciferol (vitamin D3) 1 cap PO DAILY 01/17/21 01/17/21 clonidine HCl 1 tab PO BID 01/17/21 01/17/21 insulin detemir U-100 [Levemir 26 unit SUBCUT DAILY 01/17/21 01/17/21 U-100 Insulin] insulin glargine [Basaglar KwikPen 10 unit SUBCUT QPM 01/17/21 01/17/21 U-100 Insulin] lisinopril 1 tab PO BEDTIME 01/17/21 01/17/21 omeprazole 1 cap PO DAILY 01/17/21 01/17/21 pravastatin 1 tab PO BEDTIME 01/17/21 01/17/21 quetiapine 1 tab PO BEDTIME 01/17/21 01/17/21 trazodone 1 tab PO BEDTIME 01/17/21 01/17/21 warfarin 1 tab PO DAILY 01/17/21 01/17/21 Previous Rx's Medication Instructions Recorded blood sugar diagnostic 1 strip MISCELLANEOUS QID #350 09/29/20 strip Allergies Allergy/AdvReac Type Severity Reaction Status Date / Time heparin [HEPARIN] Allergy Severe HEPARIN-INDUCED Verified 01/17/21 18:57 THROMBOCYTOPENIA adhesive tape [ADHESIVE TAPE] Allergy Intermediate LOCALIZED Verified 01/17/21 18:57 BLISTER morphine [MORPHINE] Allergy Intermediate GI UPSET Verified 01/17/21 18:57 warfarin Allergy Mild Unknown Verified 01/17/21 18:57 Review of Systems Review of Systems: Constitutional : No Weight loss, No Fever, No Chills, No Night Sweats, No Fatigue, No Malaise ENT/Mouth : No Hearing loss, No Ear Pain, No Nasal Congestion, No Sinus Pain, No Hoarseness, No sore throat, No Rhinorrhea, No Swallowing Difficulty Eyes: No Eye Pain, No Swelling, No Redness, No Foreign Body, No Discharge, No Vision Changes Cardiovascular : No Chest Pain, No SOB, No Dyspnea on Exertion, No Orthopnea, No Edema, No Palpitations Respiratory : Of dry and barky cough, No Sputum, No Wheezing, No Smoke Exposure, No Dyspnea Gastrointestinal : No Nausea, No Vomiting, No Diarrhea, No Constipation, No abdominal Pain, No Hematochezia, No Melena Genitourinary : no irregular bleeding, No Dysuria, No Urinary Frequency, No Hematuria, No Urinary Incontinence, No Urgency, No Flank Pain, No Urinary Flow Changes, No Hesitancy Musculoskeletal : No joint pain, No Myalgias, No Joint Swelling Skin : No Skin Lesions, No rash Neuro : No Weakness, No Numbness, No Paresthesias, No Loss of Consciousness, No Dizziness, No Headache Psych : No Anxiety/Panic, No Depression, No SI/HI/AH/VH, No Social Issues, Heme/Lymph: No Bruising, No Bleeding,No Lymphadenopathy Endocrine : No Polyuria, No Polydipsia, No Temperature Intolerance PMFSH Past Medical History Medical History Cellulitis of chest wall CHF (congestive heart failure) Chronic renal failure Diabetes mellitus, type 2 Encounter for screening colonoscopy ESRD (end stage renal disease) Hypertension Seizures Surgical History H/O section H/O removal of cyst History of carpal tunnel surgery of left wrist History of phacoemulsification of cataract of right eye with intraocular lens implantation Family History Family History Father Arthritis Mother Cancer Diabetes Brother No problems noted. Sister No problems noted. Sister No problems noted. Son No problems noted. Son No problems noted. Daughter No problems noted. Daughter No problems noted. 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 Oriented X3. No acute distress. Eyes: Pupils equal, round and reactive to light. ENT: Pharynx normal. Neck: Normal inspection. Neck supple. No lymph nodes noted. No crepitus CVS: Normal heart rate and rhythm. Pulses normal. Normal S1 and S2 Respiratory: No respiratory distress. Breath sounds normal. No stridor, has a dry croupy cough, intermittent stridor like respirations Abdomen: Soft and nontender. No rigidity. No distention. good BS x4 Skin: Skin warm and dry. Normal skin color. Normal skin turgor. Extremities: No Lacerations. No Rash Neuro: Oriented X 3. No motor deficit. No sensory deficit. Moving all extermities. No slurred speech. Course Course Course Narrative: Patient received Solu-Medrol and nebulized racemic epi, patient feeling better, patient does have occasional stridor, croupy like cough. Patient has no respiratory distress. Patient oxygenating 99% on room air, speaking in full sentences. It is likely that patient has laryngeal irritation from the ET tube that was removed 2 days ago. I discussed the patient with Dr. Reid, we will go ahead and order a CT scan of the soft tissue of the neck. Patient will be staying for observation. At this time, patient's blood pressure is elevated, patient already has received hydralazine and a nitroglycerin patch. And another dose of hydralazine will be given and will be started on a clonidine patch Patient's blood pressure 130/48, patient feeling better. Patient's CT scan shows supraglottitis, but the epiglottis itself is within normal limits. At this time, patient is speaking in full sentences, states she feels well, there is no stridor, oxygen saturation remains at 98% on room air. I discussed the CT findings with Dr. Reid, we will start patient on empiric antibiotic. Patient is boarding in the emergency room. I discussed with Dr. Rojas the above-mentioned. At this time, patient remains stable, no stridor, oxygen saturation 99% on room air, speaking full sentences, eating and drinking Medical Decision Making Lab Data Result diagrams: 01/17/21 21:07 01/17/21 21:07 Labs: Lab Results 01/17/21 01/17/21 01/17/21 Range/Units 20:05 21:07 21:07 WBC 10.7 (4.8-10.8) X10*3/uL RBC 3.34 L (4.20-5.50) X10*6/uL Hgb 10.5 L (12.0-16.0) g/dl Hct 32.1 L (37-47) % MCV 96.1 (80-98) fL MCH 31.4 (27.0-33.0) pg MCHC 32.7 (31.0-35.0) g/dl RDW 15.1 (11.0-16.0) % Plt Count 290 D (160-400) X10*3/uL MPV 10.5 (9.4-12.3) fL Immature Gran % (Auto) 0.6 H (0.0-0.4) % Neut % (Auto) 70.0 (45-73) % Lymph % (Auto) 16.7 L (20-40) % [place] % (Auto) 9.8 (2-11) % Eos % (Auto) 2.3 (0-4) % Baso % (Auto) 0.6 (0-2) % Lymph # (Auto) 1.8 (1.2-4.9) X10*3/uL [place] # (Auto) 1.1 (0.1-1.2) X10*3/uL Eos # (Auto) 0.3 (0.0-0.4) X10*3/uL Baso # (Auto) 0.1 (0.0-0.2) X10*3/uL Abs Immat Gran (auto) 0.06 H (0.00-0.03) X10*3/uL Absolute Neuts (auto) 7.5 (2.0-8.3) X10*3/uL Absolute Nucleated RBC 0.000 (0.0-0.012) X10*3/uL Nucleated RBC % (auto) 0.0 (0.0-0.2) /100WBC VBG pH (7.32-7.43) VBG pCO2 mmHg VBG pO2 mmHg VBG HCO3 (22-26) mmol/L VBG O2 Saturation % VBG Base Excess mmol/L Sodium 136 (135-145) mmol/L Potassium 3.9 (3.3-5.1) mmol/L Chloride 96 (96-108) mmol/L Carbon Dioxide 25 (22-29) mmol/L Anion Gap 19 (12-20) BUN 21 H (9-16) mg/dL Creatinine 2.68 H (0.5-1.4) mg/dL Estim Creat Clear Calc 17.8 Estimated GFR 18 Random Glucose 274 H D (60-115) mg/dL Calcium 8.5 (8.4-10.2) mg/dL Total Bilirubin 0.4 (0.0-1.0) mg/dL Direct Bilirubin 0.2 (0.0-0.5) mg/dL AST 20 (5-31) U/L ALT 15 (0-31) U/L Alkaline Phosphatase 106 D (39-117) U/L Troponin I High Sens (<3.5-17.0) ng/L B-Natriuretic Peptide (<100) pg/mL Total Protein 7.5 (6.5-8.0) g/dL Albumin 3.8 (3.5-5.0) g/dL Coronavirus (PCR) NEGATIVE (Negative) Influenza Type A (PCR) NEGATIVE (Negative) Influenza Type B (PCR) NEGATIVE (Negative) RSV RNA Qual (PCR) NEGATIVE (Negative) 01/17/21 01/17/21 01/17/21 Range/Units 21:24 21:24 21:28 WBC (4.8-10.8) X10*3/uL RBC (4.20-5.50) X10*6/uL Hgb (12.0-16.0) g/dl Hct (37-47) % MCV (80-98) fL MCH (27.0-33.0) pg MCHC (31.0-35.0) g/dl RDW (11.0-16.0) % Plt Count (160-400) X10*3/uL MPV (9.4-12.3) fL Immature Gran % (Auto) (0.0-0.4) % Neut % (Auto) (45-73) % Lymph % (Auto) (20-40) % [place] % (Auto) (2-11) % Eos % (Auto) (0-4) % Baso % (Auto) (0-2) % Lymph # (Auto) (1.2-4.9) X10*3/uL [place] # (Auto) (0.1-1.2) X10*3/uL Eos # (Auto) (0.0-0.4) X10*3/uL Baso # (Auto) (0.0-0.2) X10*3/uL Abs Immat Gran (auto) (0.00-0.03) X10*3/uL Absolute Neuts (auto) (2.0-8.3) X10*3/uL Absolute Nucleated RBC (0.0-0.012) X10*3/uL Nucleated RBC % (auto) (0.0-0.2) /100WBC VBG pH 7.49 H (7.32-7.43) VBG pCO2 35 mmHg VBG pO2 56 mmHg VBG HCO3 27 H (22-26) mmol/L VBG O2 Saturation 87.0 % VBG Base Excess 4.7 mmol/L Sodium (135-145) mmol/L Potassium (3.3-5.1) mmol/L Chloride (96-108) mmol/L Carbon Dioxide (22-29) mmol/L Anion Gap (12-20) BUN (9-16) mg/dL Creatinine (0.5-1.4) mg/dL Estim Creat Clear Calc Estimated GFR Random Glucose (60-115) mg/dL Calcium (8.4-10.2) mg/dL Total Bilirubin (0.0-1.0) mg/dL Direct Bilirubin (0.0-0.5) mg/dL AST (5-31) U/L ALT (0-31) U/L Alkaline Phosphatase (39-117) U/L Troponin I High Sens 53.1 H* (<3.5-17.0) ng/L B-Natriuretic Peptide 905 H (<100) pg/mL Total Protein (6.5-8.0) g/dL Albumin (3.5-5.0) g/dL Coronavirus (PCR) (Negative) Influenza Type A (PCR) (Negative) Influenza Type B (PCR) (Negative) RSV RNA Qual (PCR) (Negative) Imaging Data Chest x-ray: Radiologist's impression: A tunneled right jugular dialysis catheter has its tip in the mid right atrium. Previously seen left lower lobe collapse/consolidation and bilateral pleural effusions have resolved. Currently, no significant abnormality is noted involving the heart, lungs, mediastinum, bony thorax or soft tissues. XR/XR chest 1V IMPRESSION: Unremarkable examination. Soft tissue of the neck: Radiologist's impression: FINDINGS: Soft tissue films of the neck demonstrate a normal larynx, pharynx and upper trachea. No soft tissue swelling or opaque foreign body is demonstrated. Calcification present in the aorta. Mild degenerative changes present in the spine. XR/XR soft tissue neck IMPRESSION: Unremarkable examination. CT: Radiologist's impression: There is abnormal, asymmetric fullness in the right supraglottic region at the aryepiglottic fold with mucosal thickening and edema. No discrete abscess is identified. The epiglottis is normal in appearance. There is mild surrounding fat stranding in this region. No retropharyngeal collections or fluid identified. The larynx appears similar to prior without focal abnormalities. No cervical adenopathy is identified. The parotid glands are homogeneous in attenuation. The submandibular glands are normal. Calcific atherosclerosis is evident within the carotid arteries bilaterally. No extra mucosal soft tissue mass or fluid collection is seen. A 0.7 cm left thyroid lobe hypodensity is noted. No additional follow-up is necessary. Thyroid gland is otherwise normal. There is a borderline enlarged 1.1 cm precarinal lymph node as well as a 1.3 cm AP window lymph node multiple additional prominent subcentimeter lymph nodes are present in the upper mediastinum. The lung apices are clear. Right tunneled dual-lumen dialysis catheter is partially included. The mastoid air cells and visualized portions of the paranasal sinuses are well-aerated. The temporomandibular joints are normal. Multiple dental caries are evident bilaterally with multifocal periapical lucencies at both the maxilla and mandible, consistent with apical periodontitis. No osseous abnormalities are seen in the cervical spine. There is mild to moderate multifocal degenerative disease with prominent posterior disc osteophyte complexes produce at least mild central canal narrowing at C3-C4, C4-C5, and C5-C6. Imaged portions of the brain parenchyma are unremarkable. CT/CT soft tissue neck wo con IMPRESSION: Asymmetric mucosal fullness of the right aryepiglottic fold with surrounding fat stranding, concerning for asymmetric supraglottitis. No abscess is identified. A dedicated neuroradiology over read will be performed in the morning. Numerous dental caries with associated multifocal apical periodontitis Mild mediastinal adenopathy of uncertain significance. ECG Data Attestation: I personally reviewed and interpreted this ECG as follows: (Normal sinus rhythm, heart rate 84, no ST segment depression or elevation, no T-wave inversion, QTC 456) Critical Care Time Critical Care Time Critical Care Time: Yes Total Critical Care Time: 90 Attestation: Patient's blood pressure was initially 244/108. Patient required multiple medications to control the blood pressure. Patient is stable. 90 minutes of critical care asthma with the patient Discharge Plan Discharge Clinical Impression: Stridor, Hypertensive urgency Patient Disposition: Admitted As Inpatient
[2021-01-17] MEDS: Racepinephrine HCL 0.5 ML VIAL.NEB INHALE (20:21)
[2021-01-17] MEDS: Acetaminophen 325 MG TABLET 650 MG PO (20:32)
--- NOTE | 2021-01-17 20:34 | PC.NURSE ---
Pt difficult stick- several attempts for IV access unsuccessful, 3rd RN at bedside. Provider aware.
[2021-01-17] MEDS: hydrALAZINE HCl 20 MG/ML VIAL 10 MG IVPUSH ×2 (20:53→23:12)
[2021-01-17] MEDS: methylPREDNISolone Sod Succ 125 MG/2 ML VIAL IVPUSH (20:53)
[2021-01-17] MEDS: Nitroglycerin 2 % Oint 1 GM Packet 1 INCH TRANSDERMA (20:53)
[2021-01-17 21:10] LABS: MANUAL DIFF FLAG NO
[2021-01-17 21:12] LABS: Basophils Absolute Auto 0.1 X10*3/uL (0.0-0.2); Basophils Percent Auto 0.6 % (0-2); Eosinophils Absolute Auto 0.3 X10*3/uL (0.0-0.4); Eosinophils Percent Auto 2.3 % (0-4); Hematocrit 32.1 % (37-47); Hemoglobin 10.5 g/dl (12.0-16.0); Imm Gran Abs Auto 0.06 X10*3/uL (0.00-0.03); Imm Gran Pct Auto 0.6 % (0.0-0.4); Lymphocytes Absolute Auto 1.8 X10*3/uL (1.2-4.9); Lymphocytes Percent Auto 16.7 % (20-40); Mean Corpuscular HGB Conc 32.7 g/dl (31.0-35.0); Mean Corpuscular Hemoglobin 31.4 pg (27.0-33.0); Mean Corpuscular Volume 96.1 fL (80-98); Mean Platelet Volume 10.5 fL (9.4-12.3); Monocytes Absolute Auto 1.1 X10*3/uL (0.1-1.2); Monocytes Percent Auto 9.8 % (2-11); Neutrophils Absolute Auto 7.5 X10*3/uL (2.0-8.3); Platelet Count 290 X10*3/uL (160-400); Red Blood Count 3.34 X10*6/uL (4.20-5.50); Red Cell Distribution Width 15.1 % (11.0-16.0); White Blood Count 10.7 X10*3/uL (4.8-10.8)
[2021-01-17 21:31] LABS: Venous Blood Gas Refer to POC result
[2021-01-17 21:35] LABS: VBG Base Excess 4.7 mmol/L; VBG HCO3 27 mmol/L (22-26); VBG pCO2 35 mmHg; VBG pH 7.49 (7.32-7.43); VBG pO2 56 mmHg
[2021-01-17 21:42] LABS: Alanine Aminotransferase 15 U/L (0-31); Albumin Level 3.8 g/dL (3.5-5.0); Alkaline Phosphatase 106 U/L (39-117); Anion Gap 19 (12-20); Aspartate Amino Transferase 20 U/L (5-31); Bilirubin Direct 0.2 mg/dL (0.0-0.5); Bilirubin Total 0.4 mg/dL (0.0-1.0); Blood Urea Nitrogen 21 mg/dL (9-16); Calcium 8.5 mg/dL (8.4-10.2); Carbon Dioxide 25 mmol/L (22-29); Chloride 96 mmol/L (96-108); Creatinine Clr Calc Pharmacy 17.8; Estimated Glomerular Filt Rate 18; Glucose Random 274 mg/dL (60-115); Potassium 3.9 mmol/L (3.3-5.1); Sodium 136 mmol/L (135-145); Total Protein 7.5 g/dL (6.5-8.0)
[2021-01-17 21:59] LABS: B Type Natriuretic Peptide 905 pg/mL (<100)
[2021-01-17 22:00] LABS: Influenza A PCR NEGATIVE (Negative); Influenza B PCR NEGATIVE (Negative); Resp Syncy Virus RNA Qual PCR NEGATIVE (Negative); SARS COV2 PCR INHOUSE NEGATIVE (Negative)
[2021-01-17 22:01] LABS: Troponin-I High Sensitivity 53.1 ng/L (<3.5-17.0)
--- NOTE | 2021-01-17 23:20 | PM.IMHP ---
History of Present Illness Date of Service: 01/17/21 Chief Complaint: SOB 60-year-old female with a past medical history of hypertension, hyperlipidemia, diabetes, ESRD on hemodialysis, CHF, history of seizures; recent presentation to the hospital on 01/09 for altered mental status/hyperosmolar nonketotic coma; patient was subsequently intubated and transferred to the [facility] ICU. Once clinically improved patient was discharged from the [facility] yesterday; patient mentions that she came in today with a chief complaint of shortness of breath for the past 1 day. Denies any difficulty swallowing chest pain palpitations lightheadedness dizziness. Denies any chest pain. Denies any headaches numbness tingling. Patient denies any fever chills cough. Patient mentioned that she went to her for dialysis today and he was noted to have high blood pressure with systolic in 220 Patient reported cough Review of all other systems is negative except mentioned above ER course: Per ER physician patient was saturating well on room air, speaking in full sentences but on exam noted to have mild stridor-attributes to possible laryngeal edema given recent extubation couple days ago at [facility]; given steroid. CT of the neck pending. At the time of my interview patient reported shortness of breath improved. Patient on Ventimask. Saturating 100%. Patient noted to be in hypertensive urgency with systolic in 200s. [facility] Medical History Cellulitis of chest wall CHF (congestive heart failure) Chronic renal failure Diabetes mellitus, type 2 Encounter for screening colonoscopy ESRD (end stage renal disease) Hypertension Seizures Family History Father Arthritis Mother Cancer Diabetes Brother No problems noted. Sister No problems noted. Sister No problems noted. Son No problems noted. Son No problems noted. Daughter No problems noted. Daughter No problems noted. 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 If so, by whom?: No Do you feel safe in your current relationship?: No Current Relationship Is there a partner from a previous relationship who is making you feel unsafe now?: No Are you made to feel afraid or neglected: No Advance Directives: Yes Advance Directives on File: Yes Advance Directives Date on File: 06/29/20 Do you have thoughts of harming others: None Do you have a plan to hurt others: No Plan Recently lost weight without trying: No Nutrition Risks: No Nutritional Risk Patient : No : No Poor oral hygiene: No service: No Meds Allergies Allergy/AdvReac Type Severity Reaction Status Date / Time heparin [HEPARIN] Allergy Severe HEPARIN-INDUCED Verified 01/17/21 18:57 THROMBOCYTOPENIA adhesive tape [ADHESIVE TAPE] Allergy Intermediate LOCALIZED Verified 01/17/21 18:57 BLISTER morphine [MORPHINE] Allergy Intermediate GI UPSET Verified 01/17/21 18:57 warfarin Allergy Mild Unknown Verified 01/17/21 18:57 Active Medications: Current Medications Generic Name Dose Route Start Last Admin Trade Name Freq PRN Reason Stop Dose Admin Acetaminophen 650 mg 01/17/21 23:03 Acetaminophen 325 Mg Tablet PO Q6H PRN Pain, Mild (Pain Scale 1-3) Enoxaparin Sodium 40 mg 01/17/21 23:15 01/17/21 23:12 Enoxaparin Sodium 40 Mg/0.4 Ml Syringe SUBCUT Not Given Q24H [facility] Methylprednisolone Sodium Succinate 40 mg 01/17/21 23:15 Methylprednisolone Sod Succ 40 Mg/Ml Vial IVPUSH Q8H [facility] Senna 17.2 mg 01/17/21 23:03 Sennosides 8.6 Mg Tablet PO BEDTIME PRN Constipation Sodium Chloride 3 ml 01/18/21 00:00 0.9 % Sodium Chloride Flush 3 Ml Syringe IVFLUSH QSHIFT [facility] Home Medications Medication Instructions Recorded Confirmed Last Taken Type insulin syringe-needle U-100 0.3 #10 ea 06/03/20 06/03/20 1 Day Ago History mL 31 gauge x 12/12 ~06/28/20 Basaglar KymikPen U-100 Insulin 10 unit SUBCUT QPM 01/17/21 01/17/21 Unknown History Levemir U-100 Insulin 26 unit SUBCUT DAILY 01/17/21 01/17/21 Unknown History bumetanide 1 tab PO BID 01/17/21 01/17/21 Unknown History cholecalciferol (vitamin D3) 1 cap PO DAILY 01/17/21 01/17/21 Unknown History clonidine HCl 1 tab PO BID 01/17/21 01/17/21 Unknown History lisinopril 1 tab PO BEDTIME 01/17/21 01/17/21 Unknown History omeprazole 1 cap PO DAILY 01/17/21 01/17/21 Unknown History pravastatin 1 tab PO BEDTIME 01/17/21 01/17/21 Unknown History quetiapine 1 tab PO BEDTIME 01/17/21 01/17/21 Unknown History trazodone 1 tab PO BEDTIME 01/17/21 01/17/21 Unknown History warfarin 1 tab PO DAILY 01/17/21 01/17/21 Unknown History Physical Exam Vital Signs and Narrative: Vital Signs: Last Vital Signs Temp 98.8 F 01/17/21 22:36 Pulse 90 01/17/21 23:13 Resp 15 01/17/21 23:13 BP 198/75 H 01/17/21 23:13 Pulse Ox 99 01/17/21 23:13 Body Mass Index 25.9 Gen: Appears be in no acute distress; speaks in full sentences HEENT: NCAT, Moist mucosa. Pulmonary: Coarse breath sounds; noticed mild stridor CVS: Normal S1-S2 Abdomen: BS+, Soft, Nontender Extremities: Warm well perfused Neuro: Alert and awake. Results Labs CBC and Chem 7: 01/18/21 11:25 01/18/21 11:25 Labs: Laboratory Results - last 24 hr 01/17/21 01/17/21 01/17/21 20:05 21:07 21:07 MCV 96.1 MCH 31.4 MCHC 32.7 RDW 15.1 Plt Count 290 D MPV 10.5 Immature Gran % (Auto) 0.6 H Neut % (Auto) 70.0 Lymph % (Auto) 16.7 L [place] % (Auto) 9.8 Eos % (Auto) 2.3 Baso % (Auto) 0.6 Lymph # (Auto) 1.8 [place] # (Auto) 1.1 Eos # (Auto) 0.3 Baso # (Auto) 0.1 Abs Immat Gran (auto) 0.06 H Absolute Neuts (auto) 7.5 Absolute Nucleated RBC 0.000 Nucleated RBC % (auto) 0.0 VBG pH VBG pCO2 VBG pO2 VBG HCO3 VBG O2 Saturation VBG Base Excess Anion Gap 19 Estim Creat Clear Calc 17.8 Estimated GFR 18 Random Glucose 274 H D Calcium 8.5 Total Bilirubin 0.4 Direct Bilirubin 0.2 AST 20 ALT 15 Alkaline Phosphatase 106 D Troponin I High Sens B-Natriuretic Peptide Total Protein 7.5 Albumin 3.8 Coronavirus (PCR) NEGATIVE Influenza Type A (PCR) NEGATIVE Influenza Type B (PCR) NEGATIVE RSV RNA Qual (PCR) NEGATIVE 01/17/21 01/17/21 01/17/21 21:24 21:24 21:28 MCV MCH MCHC RDW Plt Count MPV Immature Gran % (Auto) Neut % (Auto) Lymph % (Auto) [place] % (Auto) Eos % (Auto) Baso % (Auto) Lymph # (Auto) [place] # (Auto) Eos # (Auto) Baso # (Auto) Abs Immat Gran (auto) Absolute Neuts (auto) Absolute Nucleated RBC Nucleated RBC % (auto) VBG pH 7.49 H VBG pCO2 35 VBG pO2 56 VBG HCO3 27 H VBG O2 Saturation 87.0 VBG Base Excess 4.7 Anion Gap Estim Creat Clear Calc Estimated GFR Random Glucose Calcium Total Bilirubin Direct Bilirubin AST ALT Alkaline Phosphatase Troponin I High Sens 53.1 H* B-Natriuretic Peptide 905 H Total Protein Albumin Coronavirus (PCR) Influenza Type A (PCR) Influenza Type B (PCR) RSV RNA Qual (PCR) Imaging Radiologist's Impressions: Impressions Chest X-Ray 01/17/21 19:53 IMPRESSION: Unremarkable examination. Soft Tissue Neck X-Ray 01/17/21 19:53 IMPRESSION: Unremarkable examination. Assessment and Plan (1) Shortness of breath: Status: Acute 60-year-old female with a past medical history of hypertension, hyperlipidemia, diabetes, CHF, ESRD on hemodialysis to the hospital with a chief complaint of shortness of breath. Shortness of breath: Patient noted to have mild stridor. Not in respiratory distress. On supplemental oxygen. Speaks in full sentences. Patient received racemic epinephrine and steroids in the ER. Will continue Solu-Medrol. Nebulizations. Pulmonology consult. Question laryngeal edema given recent extubation. Will obtain CT of the neck. NPO Hypertensive urgency: Continue home medications. Hydralazine p.r.n.. Nonfocal examination. Will continue to monitor. ESRD: Patient on hemodialysis. Continue home medications. Nephrology consult. Diabetes: Will keep the patient on insulin sliding scale. History of seizures: Continue home Keppra Code status: Full code Quality Stroke Does the patient have a stroke diagnosis?: No VTE Prior VTE?: No VTE Risk Level:: Medical - moderate - high VTE Device Contraindication: N/A - Device Ordered VTE Drug Contraindication: N/A - Med Ordered
--- NOTE | 2021-01-17 23:37 | PC.NURSE ---
patient has no medication list with her. medication rec completed based off of recently filled prescriptions. patient unsure of her medications.
[2021-01-18] VITALS (7 sets, daily range): BP systolic 130–200; BP diastolic 48–87; PULSE 76–96; RESP 15–19; TEMP 36.2–37.1; O2SAT 98–100; BMI 26.4
[2021-01-18 01:12] LABS: Troponin-I High Sensitivity 58.3 ng/L (<3.5-17.0)
[2021-01-18] MEDS: cefTRIAXone sodium 1 GM in 0.9 % Sodium Chloride 50 ML IV (02:51)
[2021-01-18] MEDS: Enoxaparin Sodium 30 MG/0.3 ML SYRINGE SUBCUT (02:51)
[2021-01-18] MEDS: methylPREDNISolone Sod Succ 40 MG/ML VIAL IVPUSH ×2 (04:45→12:01)
[2021-01-18] MEDS: hydrALAZINE HCl 20 MG/ML VIAL 5 MG IVPUSH (06:27)
[2021-01-18 09:47] LABS: Glucose, Whole Blood 334 mg/dL (60-115)
[2021-01-18] MEDS: carvediloL 12.5 MG TABLET PO (10:04)
[2021-01-18] MEDS: cloNIDine HCL 0.1 MG TABLET PO (10:04)
[2021-01-18] MEDS: Omeprazole 20 MG CAPSULE.DR PO (10:05)
[2021-01-18] MEDS: Insulin Glargine,Hum.rec.anlog 100 UNIT/ML 10 ML VIAL 10 UNIT SUBCUT (10:05)
[2021-01-18] MEDS: 0.9 % Sodium Chloride Flush 3 ML SYRINGE IVFLUSH (10:05)
[2021-01-18] MEDS: Cholecalciferol (Vitamin D3) 25 MCG TABLET 50 MCG PO (10:05)
[2021-01-18] MEDS: Bumetanide 1 MG TABLET PO (10:05)
--- NOTE | 2021-01-18 10:06 | MHC.CM.PN ---
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
--- NOTE | 2021-01-18 11:06 | P.DS_ITS ---
DS: Providers Provider Date of Service: 01/18/21 Date of admission: 01/17/21 23:03 Primary care physician: Serafin Rosales MD Consults: 01/17/21 23:21 Consult to Nephrology Routine Consulting Provider: Serafin Allison Reason for consultation: ESRD 01/18/21 01:38 Consult to Infectious Diseases Routine Consulting Provider: Ana M Guthrie Reason for consultation: Supraglotitis DS: Diagnosis Discharge Diagnosis (1) Stridor: Status: Acute (2) Hypertensive urgency: Status: Acute (3) Supraglottitis: Status: Acute DS: Medications Discharge Medications Home Medications: Home Medications Medication Instructions Recorded Confirmed insulin syringe-needle U-100 0.3 #10 ea 06/03/20 06/03/20 mL 31 gauge x 5/16 Basaglar KwikPen U-100 Insulin 10 unit SUBCUT QPM 01/17/21 01/17/21 Levemir U-100 Insulin 26 unit SUBCUT DAILY 01/17/21 01/17/21 bumetanide 1 tab PO BID 01/17/21 01/17/21 cholecalciferol (vitamin D3) 1 cap PO DAILY 01/17/21 01/17/21 clonidine HCl 1 tab PO BID 01/17/21 01/17/21 lisinopril 1 tab PO BEDTIME 01/17/21 01/17/21 omeprazole 1 cap PO DAILY 01/17/21 01/17/21 pravastatin 1 tab PO BEDTIME 01/17/21 01/17/21 quetiapine 1 tab PO BEDTIME 01/17/21 01/17/21 trazodone 1 tab PO BEDTIME 01/17/21 01/17/21 warfarin 1 tab PO DAILY 01/17/21 01/17/21 Previous Rx's Medication Instructions Recorded blood sugar diagnostic 1 strip MISCELLANEOUS QID #350 09/29/20 strip DS: Summary Hospital Course Hospital Course: from admission history and physical by hospitalist Jose Reid, 01/17/21: 60-year-old female with a past medical history of hypertension, hyperlipidemia, diabetes, ESRD on hemodialysis, CHF, history of seizures; recent presentation to the hospital on 01/09 for altered mental status/hyperosmolar nonketotic coma; patient was subsequently intubated and transferred to the [facility] ICU. Once clinically improved patient was discharged from the [facility] yesterday; patient mentions that she came in today with a chief complaint of shortness of breath for the past 1 day. Denies any difficulty swallowing chest pain palpitations lightheadedness dizziness. Denies any chest pain. Denies any headaches numbness tingling. Patient denies any fever chills cough. Patient mentioned that she went to her for dialysis today and he was noted to have high blood pressure with systolic in 220 Patient reported cough Review of all other systems is negative except mentioned above ER course: Per ER physician patient was saturating well on room air, speaking in full sentences but on exam noted to have mild stridor-attributes to possible laryngeal edema given recent extubation couple days ago at [facility]; given steroid. CT of the neck pending. At the time of my interview patient reported shortness of breath improved. Patient on Ventimask. Saturating 100%. Patient noted to be in hypertensive urgency with systolic in 200s. The patient was [place] [facility] She had a CT of the neck overnight that demonstrated asymmetric mucosal fullness of the right aryepiglottic fold with surrounding fat stranding, concerning for asymmetric supraglottitis. This is likely related to recent intubation, though she was extubated on 01/10/21 and her presentation is delayed by one week. Regardless, she was treated with nebulized epinephrine and IV methylprednisolone. When I came on service, I examined her and noted her to be in no respiratory distress at rest; however, with speaking, she was noted to have a muffled voice (she stated my voice is not deep anym ore ) and was coughing and developed some stridor. These resolved when she stopped speaking. I then called the business risk consultant at [facility], Geno Loredo, as we do not have ENT consultation at our institution. She recommended transfer to [facility] for further workup. The patient was accepted by the hospitalist service. She will need nephrology consultation to continue her MWF hemodialysis. Blood pressure improved with initiation of her home antihypertensives [clonidine, carvedilol, and lisinopril]. Time Spent with Patient Time attestation: Total time spent providing and/or coordinating discharge services: 60 Discharge coordination time: Greater than 30 minutes Quality: Stroke Does the patient have a stroke diagnosis?: No Physical Exam Vital Signs: Vital Signs: Last Vital Signs Temp 98.6 F 01/18/21 06:59 Pulse 87 01/18/21 10:04 Resp 18 01/18/21 06:59 BP 162/78 H 01/18/21 10:04 Pulse Ox 99 01/18/21 06:59 Body Mass Index 26.4 Gen: in no acute distress at rest HEENT: sclera anicteric, moist mucus membranes, muffled voice, cough/stridor with speaking only [none at rest] Neck: supple, short Lungs: no crackles or wheezes Heart: regular rate and rhythm, no murmurs Abd: soft, non-tender, non-distended Ext: no edema Skin: warm/well-perfused Neuro: alert and oriented x3, no focal findings Psych: appropriate affect DS: Data Data Completed and Pending Completed studies during hospitalization [Text1]: Laboratory Results WBC 10.7 X10*3/uL (4.8-10.8) 01/17/21 21:07 RBC 3.34 X10*6/uL (4.20-5.50) L 01/17/21 21:07 Hgb 10.5 g/dl (12.0-16.0) L 01/17/21 21:07 Hct 32.1 % (37-47) L 01/17/21 21:07 MCV 96.1 fL (80-98) 01/17/21 21:07 MCH 31.4 pg (27.0-33.0) 01/17/21 21:07 MCHC 32.7 g/dl (31.0-35.0) 01/17/21 21:07 RDW 15.1 % (11.0-16.0) 01/17/21 21:07 Plt Count 290 X10*3/uL (160-400) D 01/17/21 21:07 MPV 10.5 fL (9.4-12.3) 01/17/21 21:07 Immature Gran % (Auto) 0.6 % (0.0-0.4) H 01/17/21 21:07 Neut % (Auto) 70.0 % (45-73) 01/17/21 21:07 Lymph % (Auto) 16.7 % (20-40) L 01/17/21 21:07 Perkins % (Auto) 9.8 % (2-11) 01/17/21 21:07 Eos % (Auto) 2.3 % (0-4) 01/17/21 21:07 Baso % (Auto) 0.6 % (0-2) 01/17/21 21:07 Lymph # (Auto) 1.8 X10*3/uL (1.2-4.9) 01/17/21 21:07 Perkins # (Auto) 1.1 X10*3/uL (0.1-1.2) 01/17/21 21:07 Eos # (Auto) 0.3 X10*3/uL (0.0-0.4) 01/17/21 21:07 Baso # (Auto) 0.1 X10*3/uL (0.0-0.2) 01/17/21 21:07 Abs Immat Gran (auto) 0.06 X10*3/uL (0.00-0.03) H 01/17/21 21:07 Absolute Neuts (auto) 7.5 X10*3/uL (2.0-8.3) 01/17/21 21:07 Absolute Nucleated RBC 0.000 X10*3/uL (0.0-0.012) 01/17/21 21:07 Nucleated RBC % (auto) 0.0 /100WBC (0.0-0.2) 01/17/21 21:07 VBG pH 7.49 (7.32-7.43) H 01/17/21 21:28 VBG pCO2 35 mmHg 01/17/21 21:28 VBG pO2 56 mmHg 01/17/21 21:28 VBG HCO3 27 mmol/L (22-26) H 01/17/21 21:28 VBG O2 Saturation 87.0 % 01/17/21 21:28 VBG Base Excess 4.7 mmol/L 01/17/21 21:28 Sodium 136 mmol/L (135-145) 01/17/21 21:07 Potassium 3.9 mmol/L (3.3-5.1) 01/17/21 21:07 Chloride 96 mmol/L (96-108) 01/17/21 21:07 Carbon Dioxide 25 mmol/L (22-29) 01/17/21 21:07 Anion Gap 19 (12-20) 01/17/21 21:07 BUN 21 mg/dL (9-16) H 01/17/21 21:07 Creatinine 2.68 mg/dL (0.5-1.4) H 01/17/21 21:07 Estim Creat Clear Calc 17.8 01/17/21 21:07 Estimated GFR 18 01/17/21 21:07 POC Glucose 334 mg/dL (60-115) H 01/18/21 09:43 Random Glucose 274 mg/dL (60-115) H D 01/17/21 21:07 Calcium 8.5 mg/dL (8.4-10.2) 01/17/21 21:07 Total Bilirubin 0.4 mg/dL (0.0-1.0) 01/17/21 21:07 Direct Bilirubin 0.2 mg/dL (0.0-0.5) 01/17/21 21:07 AST 20 U/L (5-31) 01/17/21 21:07 ALT 15 U/L (0-31) 01/17/21 21:07 Alkaline Phosphatase 106 U/L (39-117) D 01/17/21 21:07 Troponin I High Sens 58.3 ng/L (<3.5-17.0) H* 01/18/21 00:24 B-Natriuretic Peptide 905 pg/mL (<100) H 01/17/21 21:24 Total Protein 7.5 g/dL (6.5-8.0) 01/17/21 21:07 Albumin 3.8 g/dL (3.5-5.0) 01/17/21 21:07 Coronavirus (PCR) NEGATIVE (Negative) 01/17/21 20:05 Influenza Type A (PCR) NEGATIVE (Negative) 01/17/21 20:05 Influenza Type B (PCR) NEGATIVE (Negative) 01/17/21 20:05 RSV RNA Qual (PCR) NEGATIVE (Negative) 01/17/21 20:05 Impressions Chest X-Ray 01/17/21 19:53 IMPRESSION: Unremarkable examination. Soft Tissue Neck X-Ray 01/17/21 19:53 IMPRESSION: Unremarkable examination. Soft Tissue Neck CT 01/17/21 23:03 IMPRESSION: Asymmetric mucosal fullness of the right aryepiglottic fold with surrounding fat stranding, concerning for asymmetric supraglottitis. No abscess is identified. A dedicated neuroradiology over read will be performed in the morning. Numerous dental caries with associated multifocal apical periodontitis Mild mediastinal adenopathy of uncertain significance. Discharge Plan Discharge Patient Disposition: [facility] Hospital Discharge Diagnosis: supraglottitis Referrals: [facility] [Other] - 1 Week Serafin Rosales MD [Primary Care Provider] - 1 Week Discharge Medications: New carvedilol 12.5 mg Tablet 12.5 mg PO BID Qty: 1 RF: 0 Continued blood sugar diagnostic [FreeStyle Lite Strips] Strip 1 strip miscellaneous QID Qty: 350 RF: 2 clonidine HCl 0.1 mg tablet 1 tab PO BID RF: 0 pravastatin 40 mg tablet 1 tab PO BEDTIME RF: 0 quetiapine 200 mg tablet 1 tab PO BEDTIME RF: 0 trazodone 100 mg tablet 1 tab PO BEDTIME RF: 0 warfarin 5 mg tablet 1 tab PO DAILY RF: 0 lisinopril 30 mg tablet 1 tab PO BEDTIME RF: 0 omeprazole 20 mg capsule,delayed release(DR/EC) 1 cap PO DAILY RF: 0 bumetanide 1 mg tablet 1 tab PO BID RF: 0 Levemir U-100 Insulin 100 unit/mL solution 26 unit subcut DAILY RF: 0 Basaglar KwikPen U-100 Insulin 100 unit/mL (3 mL) insulin pen 10 unit subcut QPM RF: 0 cholecalciferol (vitamin D3) 50 mcg (2,000 unit) capsule 1 cap PO DAILY RF: 0 (DME) insulin syringe-needle U-100 0.3 mL 31 gauge x 5/16 syringe See Rx Instructions ea .ROUTE .MEDSUPPLY Qty: 10 RF: 0 Discharge Orders: Discharge Order (Routine); Ordered 01/18/21 Ordered By: Radha Shen Activity on Discharge: As tolerated Stand Alone Forms: Patient Portal Discharge page Care Plan Goals: workup and management of supraglottic swelling Health Concerns: supraglottic swelling Plan of Treatment: transfer to [facility] for ENT consultation Assessment: as above Discharge Date/Time: 01/18/21 13:50
[2021-01-18 11:29] LABS: MANUAL DIFF FLAG NO
[2021-01-18 11:32] LABS: Basophils Percent Auto 0.2 % (0-2); Hematocrit 31.6 % (37-47); Hemoglobin 10.3 g/dl (12.0-16.0); Imm Gran Abs Auto 0.03 X10*3/uL (0.00-0.03); Imm Gran Pct Auto 0.6 % (0.0-0.4); Lymphocytes Absolute Auto 0.7 X10*3/uL (1.2-4.9); Lymphocytes Percent Auto 13.2 % (20-40); Mean Corpuscular HGB Conc 32.6 g/dl (31.0-35.0); Mean Corpuscular Hemoglobin 31.7 pg (27.0-33.0); Mean Corpuscular Volume 97.2 fL (80-98); Mean Platelet Volume 10.5 fL (9.4-12.3); Monocytes Absolute Auto 0.1 X10*3/uL (0.1-1.2); Monocytes Percent Auto 1.5 % (2-11); Neutrophils Absolute Auto 4.5 X10*3/uL (2.0-8.3); Neutrophils Percent Auto 84.5 % (45-73); Platelet Count 319 X10*3/uL (160-400); Red Blood Count 3.25 X10*6/uL (4.20-5.50); Red Cell Distribution Width 15.2 % (11.0-16.0); White Blood Count 5.4 X10*3/uL (4.8-10.8)
[2021-01-18 11:38] LABS: INTERNATIONAL NORM RATIO 1.2 (0.9-1.1); Prothrombin Time 14.8 SEC (10.8-13.0)
--- NOTE | 2021-01-18 11:46 | W.PM.IDCN ---
History of Present Illness Data of Consult Service Date: 01/18/21 Requesting physician: Radha Shen Primary Care Provider: Serafin Rosales MD HPI Reason for consult: epiglottis possible She presents with shortness of breath She had been extubated [facility] after respiratory distress last weeks SHe has no fever or chills No one else is ill Review of Systems Review of Systems: Yes all other systems are reviewed and are negative PMFSH Past Medical History Medical History Cellulitis of chest wall CHF (congestive heart failure) Chronic renal failure Diabetes mellitus, type 2 Encounter for screening colonoscopy ESRD (end stage renal disease) Hypertension Seizures Family History Family History Father Arthritis Mother Cancer Diabetes Brother No problems noted. Sister No problems noted. Sister No problems noted. Son No problems noted. Son No problems noted. Daughter No problems noted. Daughter No problems noted. 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 If so, by whom?: No Do you feel safe in your current relationship?: No Current Relationship Is there a partner from a previous relationship who is making you feel unsafe now?: No Are you made to feel afraid or neglected: No Advance Directives: Yes Advance Directives on File: Yes Advance Directives Date on File: 06/29/20 Do you have thoughts of harming others: None Do you have a plan to hurt others: No Plan Recently lost weight without trying: No Nutrition Risks: No Nutritional Risk Patient : No : No Poor oral hygiene: No service: No Meds Allergies Allergy/AdvReac Type Severity Reaction Status Date / Time heparin [HEPARIN] Allergy Severe HEPARIN-INDUCED Verified 01/17/21 18:57 THROMBOCYTOPENIA adhesive tape [ADHESIVE TAPE] Allergy Intermediate LOCALIZED Verified 01/17/21 18:57 BLISTER morphine [MORPHINE] Allergy Intermediate GI UPSET Verified 01/17/21 18:57 warfarin Allergy Mild Unknown Verified 01/17/21 18:57 Active Medications: Current Medications Generic Name Dose Route Start Last Admin Trade Name Freq PRN Reason Stop Dose Admin Acetaminophen 650 mg 01/17/21 23:03 Acetaminophen 325 Mg Tablet PO Q6H PRN Pain, Mild (Pain Scale 1-3) Bumetanide 1 mg 01/18/21 08:00 01/18/21 10:05 Bumetanide 1 Mg Tablet PO 1 mg BIDWM [facility] Administration Protocol Carvedilol 12.5 mg 01/18/21 09:00 01/18/21 10:04 Carvedilol 12.5 Mg Tablet PO 12.5 mg BID ASHA Administration Protocol Clonidine HCl 0.1 mg 01/18/21 09:00 01/18/21 10:04 Clonidine Hcl 0.1 Mg Tablet PO 0.1 mg BID ASHA Administration Protocol Hydralazine HCl 5 mg 01/17/21 23:27 01/18/21 06:27 Hydralazine Hcl 20 Mg/Ml Vial IVPUSH 5 mg Q4H PRN Administration BP>180/90 Protocol Insulin Glargine 10 unit 01/18/21 09:00 01/18/21 10:05 Insulin Glargine,Hum.Rec.Anlog 100 Unit/Ml 10 Ml Vial SUBCUT 10 unit DAILY ASHA Administration Insulin Human Lispro 0 unit 01/18/21 11:30 Insulin Lispro 100 Unit/Ml 3 Ml Vial SUBCUT QIDACHS [facility] Protocol Lisinopril 30 mg 01/18/21 21:00 Lisinopril 10 Mg Tablet PO BEDTIME [facility] Protocol Methylprednisolone Sodium Succinate 40 mg 01/18/21 04:00 01/18/21 04:45 Methylprednisolone Sod Succ 40 Mg/Ml Vial IVPUSH 40 mg Q8H ASHA Administration Omeprazole 20 mg 01/18/21 09:00 01/18/21 10:05 Omeprazole 20 Mg Capsule.Dr PO 20 mg DAILY ASHA Administration Pravastatin Sodium 40 mg 01/18/21 21:00 Pravastatin Sodium 40 Mg Tablet PO BEDTIME [facility] Quetiapine Fumarate 200 mg 01/18/21 21:00 Quetiapine Fumarate 200 Mg Tablet PO BEDTIME [facility] Senna 17.2 mg 01/17/21 23:03 Sennosides 8.6 Mg Tablet PO BEDTIME PRN Constipation Sodium Chloride 3 ml 01/18/21 00:00 01/18/21 10:05 0.9 % Sodium Chloride Flush 3 Ml Syringe IVFLUSH 3 ml QSHIFT [facility] Administration Trazodone HCl 100 mg 01/18/21 21:00 Trazodone Hcl 100 Mg Tablet PO BEDTIME [facility] Vitamin D 50 mcg 01/18/21 09:00 01/18/21 10:05 Cholecalciferol (Vitamin D3) 25 Mcg Tablet PO 50 mcg DAILY [facility] Administration Warfarin Sodium 5 mg 01/18/21 18:00 Warfarin Sodium 5 Mg Tablet PO DAILY@1800 [facility] Home Medications Medication Instructions Recorded Confirmed Last Taken Type insulin syringe-needle U-100 0.3 #10 ea 06/03/20 06/03/20 1 Day Ago History mL 31 gauge x 12/12 ~06/28/20 Basaglar KwikPen U-100 Insulin 10 unit SUBCUT QPM 01/17/21 01/17/21 Unknown History Levemir U-100 Insulin 26 unit SUBCUT DAILY 01/17/21 01/17/21 Unknown History bumetanide 1 tab PO BID 01/17/21 01/17/21 Unknown History cholecalciferol (vitamin D3) 1 cap PO DAILY 01/17/21 01/17/21 Unknown History clonidine HCl 1 tab PO BID 01/17/21 01/17/21 Unknown History lisinopril 1 tab PO BEDTIME 01/17/21 01/17/21 Unknown History omeprazole 1 cap PO DAILY 01/17/21 01/17/21 Unknown History pravastatin 1 tab PO BEDTIME 01/17/21 01/17/21 Unknown History quetiapine 1 tab PO BEDTIME 01/17/21 01/17/21 Unknown History trazodone 1 tab PO BEDTIME 01/17/21 01/17/21 Unknown History warfarin 1 tab PO DAILY 01/17/21 01/17/21 Unknown History Physical Exam Vital Signs: Vital Signs: Last Vital Signs Temp 97.1 F 01/18/21 11:29 Pulse 76 01/18/21 11:29 Resp 18 01/18/21 11:29 BP 148/67 H 01/18/21 11:29 Pulse Ox 100 01/18/21 11:29 Body Mass Index 26.4 Const: General: cooperative HENMT: Head: Yes normal to inspection Mouth: Normal oral and palatal mucosa present Resp: Effort & Inspection: normal respiratory effort Cardio: Rate: regular rate Rhythm: regular rhythm GI: Palpation (GI): Soft to palpation and nontender Extrem: General: Yes normal to inspection Results Labs CBC & Chem 7: 01/18/21 11:25 01/17/21 21:07 Labs: Short CBC 01/17/21 01/18/21 Range/Units 21:07 11:25 WBC 10.7 5.4 (4.8-10.8) X10*3/uL Hgb 10.5 L 10.3 L (12.0-16.0) g/dl Hct 32.1 L 31.6 L (37-47) % Plt Count 290 D 319 (160-400) X10*3/uL BMP 01/17/21 21:07 Sodium 136 Potassium 3.9 Chloride 96 Carbon Dioxide 25 BUN 21 H Creatinine 2.68 H Calcium 8.5 Liver Function 01/17/21 Range/Units 21:07 Total Bilirubin 0.4 (0.0-1.0) mg/dL Direct Bilirubin 0.2 (0.0-0.5) mg/dL AST 20 (5-31) U/L ALT 15 (0-31) U/L Alkaline Phosphatase 106 D (39-117) U/L Albumin 3.8 (3.5-5.0) g/dL Assessment and Plan (1) Supraglottitis: Status: Acute This may be due likely to supraglottic inflammation from intubation She is on steroids She shows no bacterial infection at this time Steroids cause leukocytosis Would not give antibiotics at this time (2) Stridor: Status: Acute (3) Shortness of breath: Status: Acute
[2021-01-18] MEDS: Insulin Lispro 100 UNIT/ML 3 ML VIAL SUBCUT (12:02)
[2021-01-18 12:09] LABS: Anion Gap 22 (12-20); Blood Urea Nitrogen 42 mg/dL (9-16); Calcium 8.4 mg/dL (8.4-10.2); Carbon Dioxide 21 mmol/L (22-29); Chloride 94 mmol/L (96-108); Creatinine Clr Calc Pharmacy 12.8; Estimated Glomerular Filt Rate 12; Glucose Random 377 mg/dL (60-115); Potassium 4.4 mmol/L (3.3-5.1); Sodium 133 mmol/L (135-145)
--- NOTE | 2021-01-18 12:12 | MHC.CM.PN ---
Female 60 DX SOB She is transfered to [facility] via ALS.
[2021-01-18 16:03] LABS: Glucose, Whole Blood 362 mg/dL (60-115)
--- NOTE | 2021-01-19 11:31 | CONS_ITS ---
DATE OF SERVICE: 01/18/2021 REASON FOR CONSULTATION: Consult requested by the medical team to evaluate and help in management of patient with ESRD who was presented with shortness of breath. HISTORY OF PRESENT ILLNESS: The patient is a 60-year-old female with past medical history of hypertension; hyperlipidemia; ESRD, on hemodialysis, on Sunday, Sunday, Sunday; history of CHF; seizure disorder, who presented to the hospital on 01/09 for altered mental status, hyperosmolar nonketotic state, was intubated, transferred to [facility] ICU. She improved and was discharged home. She was apparently discharged from [facility] on the . She came in with a complaint of shortness of breath for 1 day. She did not have any chest pain, palpitations, lightheadedness. No fever or chills. Her blood pressure was elevated in the dialysis unit yesterday. In the ER, the patient was saturating on room air, speaking full sentences. She is resting in the bed at the present time and is feeling better. PAST MEDICAL HISTORY: History of cellulitis of the chest wall; CHF; ESRD, on hemodialysis; type 2 diabetes mellitus, hypertension, and seizures. FAMILY HISTORY: Includes history of hypertension. PAST SURGICAL HISTORY: section, removal of cyst, history of carpal tunnel surgery on the left wrist, history of cataract surgery. PERSONAL AND SOCIAL HISTORY: The patient lives with her spouse in her apartment and does not drink. Does not use drugs or smoke at the present time. ALLERGIES: INCLUDE HEPARIN, ADHESIVE TAPES, MORPHINE, AND WARFARIN. MEDICATIONS: Outpatient medications were reviewed, and inpatient medications were reviewed. PHYSICAL EXAMINATION: GENERAL: The patient is resting in the bed. Awake, alert, comfortable. VITAL SIGNS: Blood pressure was 148/67, pulse 76, afebrile, oxygen saturation 100% on nasal cannula 1 L. HEENT: Shows pupils equal, round, and reactive bilaterally to light. No jugular venous distention is noted. Mucosa is moist. There is no scleral icterus or conjunctival congestion. NECK: Supple. No thyromegaly is noted. CARDIOVASCULAR SYSTEM: S1, S2 without rub. RESPIRATORY SYSTEM: Air entry decreased in bases. ABDOMEN: Soft, nontender. Bowel sounds normal. EXTREMITIES: Showed trace edema. There is no peripheral cyanosis or clubbing. NEURO: Essentially nonfocal. LABORATORY DATA: Labs done recently. WBC is 5.4, hemoglobin 10.3, hematocrit 31, platelets were 319. Lab work from today is pending. Lab work from yesterday: Potassium was 3.9, BUN 21, creatinine 2.68. Troponin 58, which is highly sensitive. IMPRESSION: 1. 60-year-old female with end-stage renal disease, on hemodialysis, admitted with shortness of breath. 2. Stridor post extubation recently. 3. Hypertension, which was uncontrolled and has improved. RECOMMENDATIONS: At this juncture, the patient's volume status is acceptable. I do not have any lab work from a.m. today. She is hemodynamically stable. I arrange for hemodialysis for the patient in the inpatient dialysis unit if she is in-house. If she is discharged, I will arrange for outpatient dialysis. She is to continue with the present antihypertensive regimen and reinforced the importance of taking all of antihypertensive medications. Thank you for allowing me to participate in the medical management of the patient. MD SEAN Ko/JOSE ALBERTO / [phone]
== END 2021-01-18 13:50 | disposition short-term general hospital (02) | DRG 919 ==
LOC: HO.ED 01-18 00:32 → HO.EDOVER 01-18 00:40 → HO.IMC 01-18 05:22
PROVIDERS: Admitting Provider Hospitalist; Emergency Provider Emergency Medicine; PCP Internal Medicine; Visit Provider Family Medicine
DX: T88.8XXA Other specified complications of surgical and medical care, not elsewhere classified, initial encounter (principal); N18.6 End stage renal disease; I13.2 Hypertensive heart and chronic kidney disease with heart failure and with stage 5 chronic kidney disease, or end stage renal disease; N17.9 Acute kidney failure, unspecified; J04.30 Supraglottitis, unspecified, without obstruction; E11.22 Type 2 diabetes mellitus with diabetic chronic kidney disease; I16.0 Hypertensive urgency; E78.5 Hyperlipidemia, unspecified; G40.909 Epilepsy, unspecified, not intractable, without status epilepticus; Z20.822 Contact with and (suspected) exposure to COVID-19; Z99.2 Dependence on renal dialysis; Z88.5 Allergy status to narcotic agent; Z79.4 Long term (current) use of insulin; Z79.01 Long term (current) use of anticoagulants; Z79.899 Other long term (current) drug therapy
CPT/HCPCS: 0241U; 36415; 70360; 70490; 71045; 80048; 80076; 82947; 83880; 84484; 85025; 85610; 93005; 94640; 99285; J0696; J1650; J2920; J2930

== ENCOUNTER 2021-01-31 11:50 | Emergency (ER) | payer MEDICARE, MEDICAID, SELFPAY ==
[2021-01-31] VITALS (7 sets, daily range): BP systolic 141–202; BP diastolic 70–98; PULSE 82–93; RESP 14–26; TEMP 36.5–37.1; O2SAT 99–102; BMI 29.9
--- NOTE | ~2021-01-31 | XR_ITS ---
EXAMINATION: XR CHEST CLINICAL INFORMATION: Shortness of breath COMPARISON: Chest x-ray on 01/17/2021 TECHNIQUE: Frontal view of the chest was obtained. FINDINGS: The cardiomediastinal silhouette is normal. There is mild increased pulmonary vascularity. No focal areas of consolidation. No pleural effusions. There is a tunneled right internal jugular vein dialysis catheter in position. XR/XR chest 1V IMPRESSION: Mild pulmonary edema.
--- NOTE | 2021-01-31 12:02 | ECG_ITS ---
Test Reason : CHEST PAIN Blood Pressure : / mmHG Vent. Rate : 082 BPM Atrial Rate : 082 BPM P-R Int : 120 ms QRS Dur : 078 ms QT Int : 386 ms P-R-T Axes : 009 -21 104 degrees QTc Int : 450 ms Normal sinus rhythm Nonspecific ST and T wave abnormality Abnormal ECG When compared with ECG of 17-JAN-2021 20:15, No significant change was found Referred By: John Espino Electronically Signed By:JUAN BARAKAT
--- NOTE | 2021-01-31 12:06 | ED.SOB ---
HPI - SOB/Dyspnea General Chief Complaint: Dyspnea Stated Complaint: shortness of breath Time Seen by Provider: 01/31/21 11:59 Source: patient and EMS Mode of arrival: EMS Limitations: no limitations History of Present Illness HPI Narrative: 60-year-old female came in for evaluation for shortness of breath. 60-year-old female end-stage renal disease on dialysis, patient was supposed to get dialysis today patient was transferred from dialysis center to the emergency department for shortness of breath. Reportedly by EMS at the dialysis center patient was hypertensive, with apparent dyspnea, patient was put on CPAP at the dialysis center, patient reported improvement with CPAP. Last dialysis was 2 days ago. Patient declined subjective fever chills. Related Data Home Medications Medication Instructions Recorded Confirmed insulin syringe-needle U-100 0.3 #10 ea 06/03/20 06/03/20 mL 31 gauge x 5/16 Basaglar KwikPen U-100 Insulin 10 unit SUBCUT DAILY@1700 01/17/21 01/31/21 Levemir U-100 Insulin 10 unit SUBCUT BEDTIME 01/17/21 01/31/21 cholecalciferol (vitamin D3) 1 cap PO DAILY 01/17/21 01/31/21 clonidine HCl 1 tab PO BID 01/17/21 01/31/21 lisinopril 1 tab PO BEDTIME 01/17/21 01/31/21 omeprazole 1 cap PO DAILY 01/17/21 01/31/21 pravastatin 1 tab PO BEDTIME 01/17/21 01/31/21 quetiapine 1 tab PO BEDTIME 01/17/21 01/31/21 trazodone 1 tab PO BEDTIME 01/17/21 01/31/21 warfarin 1 tab PO DAILY 01/17/21 01/31/21 amlodipine 1 tab PO DAILY 01/31/21 01/31/21 carvedilol 25 mg PO BID 01/31/21 01/31/21 diphenhydramine HCl [Banophen] 2 cap PO DAILY PRN 01/31/21 01/31/21 insulin aspart U-100 [Novolog See Protocol SUBCUT TID 01/31/21 01/31/21 U-100 Insulin aspart] insulin glargine [Lantus Solostar 22 - 26 unit SUBCUT BEDTIME 01/31/21 U-100 Insulin] Previous Rx's Medication Instructions Recorded blood sugar diagnostic 1 strip MISCELLANEOUS QID #350 09/29/20 strip bumetanide 1 mg tablet 1 mg PO BID #60 tab 01/25/21 Allergies Allergy/AdvReac Type Severity Reaction Status Date / Time heparin [HEPARIN] Allergy Severe HEPARIN-INDUCED Verified 01/17/21 18:57 THROMBOCYTOPENIA adhesive tape [ADHESIVE TAPE] Allergy Intermediate LOCALIZED Verified 01/17/21 18:57 BLISTER morphine [MORPHINE] Allergy Intermediate GI UPSET Verified 01/17/21 18:57 warfarin Allergy Mild Unknown Verified 01/17/21 18:57 Review of Systems Review of Systems: All other systems are reviewed and are negative Constitutional: Reports as per HPI and Reports no additional constitutional complaints Eyes: Reports as per HPI and Reports no additional eye complaints Reports system reviewed and no additional complaints, except as documented Cardiovascular: Reports as per HPI and Reports no additional cardiovascular complaints Respiratory: Reports as per HPI and Reports no additional respiratory complaints Gastrointestinal: Reports as per HPI and Reports no additional gastrointestinal complaints Genitourinary: Reports no additional female genitourinary complaints Musculoskeletal: Reports no additional musculoskeletal complaints Skin/Breast: Reports system reviewed and no additional complaints, except as docu Psychiatric: Reports no additional psychiatric complaints Endocrine: Reports no additional endocrine complaints Hematologic/Lymphatic: Reports no additional hematologic/lymphatic complaints Allergic/Immunologic: Reports no additional allergic/immunologic complaints Reports system reviewed and no additional complaints, except as documented and Reports Abnormal speech present [facility] Past Medical History Medical History (Updated 01/31/21 @ 16:46 by Laurita Jonas MD) Cellulitis of chest wall CHF (congestive heart failure) Chronic renal failure Diabetes mellitus, type 2 Encounter for screening colonoscopy ESRD (end stage renal disease) Hypertension Seizures Surgical History H/O section H/O removal of cyst History of carpal tunnel surgery of left wrist History of phacoemulsification of cataract of right eye with intraocular lens implantation Family History Family History Father Arthritis Mother Cancer Diabetes Brother No problems noted. Sister No problems noted. Sister No problems noted. Son No problems noted. Son No problems noted. Daughter No problems noted. Daughter No problems noted. Daughter Thyroid condition Social History Social History Household Members: Family Housing: House Do you presently have visiting nurse or other home services: Yes ([employer]) Alcohol intake: never Patient Tobacco Use Status: Never used Tobacco Advance Directives: Yes Advance Directives on File: Yes Advance Directives Date on File: 06/29/20 Patient : No service: No Physical Exam Vital Signs: Vital Signs: Last Vital Signs Temp 98.7 F 01/31/21 15:49 Pulse 87 01/31/21 17:10 Resp 20 01/31/21 17:10 BP 202/70 H 01/31/21 17:10 Pulse Ox 100 01/31/21 17:10 Oxygen Flow Rate 8 01/31/21 11:56 Body Mass Index 29.9 vital signs have been reviewed as appeared to be correct. Blood pressure normal. Heart rate normal. Respiration rate normal. Temperature normal. Oxygen saturation normal. Appearance: Alert. Oriented X3. No Mild respiratory acute distress. Head: Normal external exam. Normocephalic. Atraumatic. No Cruz signs noted. No raccoon eyes noted Eyes: PERRLA. EOMI. Conjunctiva and sclera normal. Eyelids normal. ENT: TM's Normal. Pharynx normal. Uvula midline. Moist mucous membranes. No trismus noted. No drooling noted. No muffled voice noted. Neck: Normal inspection. Neck supple. FROM. No adenopathy. Thyroid Normal. No meningeal signs. No neck mass noted. CVS: Normal heart rate and rhythm. Heart sound normal. No murmurs noted. Pulses normal throughout. Respiratory: mild respiratory distress. Painless inspiration. Breath sounds normal. mild diffuse expiratory wheezing, bilateral basilar rales.. Chest nontender. No accessory muscle usage noted or decreased air movement noted. Abdomen: Soft and nontender. Bowel sounds normal in all 4 quadrants. No distention noted. No organomegaly noted. No visible injury noted. Back: No CVA tenderness. Full range of motion noted. Skin: Skin warm and dry. Normal skin color. Normal skin turgor. No rashes/lesions/lacerations noted. Extremities: +2 Pitting lower extremity edema bilaterally. Extremities exhibit normal range of motion. Extremities nontender. Neuro: Oriented X 3. No motor deficit. No sensory deficit. Reflexes normal. Course Course Course Narrative: Assessment and plan. End-stage renal disease / congestive heart failure presented with hypertension and difficulty breathing. 1. elevated troponin with no EKG changes case discussed with jet man Dr. Morrow who is recommending to do troponin trend. 2. patient is breathing is improved with CPAP / Lasix/ nitro. Patient unable to give urine yet. 3. case discussed with from renal who is recommending to start the patient on nitro drip while in getting the patient ready for dialysis. 4. case discussed with Dr. Jonas who accepted the patient to ICU. 5. significant leukocytosis of unclear etiology, no source of infection. Reevaluation(s) Reevaluation #1: After discussing the case with Dr. Morrow /Sumi, there is possible chance that this patient is having ischemic cardiac event secondary to ACS and both agreed that the patient need to be transferred to [facility] for possible urgent cardiac catheterization. Patient received heparin ( cardiac protocol) /aspirin/ nitro drip. Case discussed with Dr. Randy hunt Cardiology from [facility] who accepted the patient to PCU. MDM - SOB/Dyspnea Lab Data Attestation: I reviewed the patient's lab results. Result diagrams: 01/31/21 13:09 01/31/21 13:09 Labs: Lab Results 01/31/21 01/31/21 01/31/21 Range/Units 13:09 13:09 13:09 WBC 41.2 H* (4.8-10.8) X10*3/uL RBC 3.32 L (4.20-5.50) X10*6/uL Hgb 10.4 L (12.0-16.0) g/dl Hct 30.7 L (37-47) % MCV 92.5 (80-98) fL MCH 31.3 (27.0-33.0) pg MCHC 33.9 (31.0-35.0) g/dl RDW 15.4 (11.0-16.0) % Plt Count 219 D (160-400) X10*3/uL MPV 12.0 (9.4-12.3) fL Immature Gran % (Auto) Cancelled Neut % (Auto) Cancelled Lymph % (Auto) Cancelled [facility] % (Auto) Cancelled Eos % (Auto) Cancelled Baso % (Auto) Cancelled Lymph # (Auto) Cancelled [facility] [place] [facility] # (Auto) Cancelled Eos # (Auto) Cancelled Baso # (Auto) Cancelled Abs Immat Gran (auto) Cancelled Absolute Neuts (auto) Cancelled Absolute Nucleated RBC 0.020 H (0.0-0.012) X10*3/uL Nucleated RBC % (auto) 0.0 (0.0-0.2) /100WBC Neutrophils % (Manual) 89 H (45-73) % Band Neutrophils % 2 L (3-5) % Lymphocytes % (Manual) 5 L (20-40) % Monocytes % (Manual) 2 (2-11) % Metamyelocytes % 2 % Abs Neuts (Manual) 37.5 H (2.2-7.9) X10*3/uL Lymphocytes # (Manual) 2.1 (0.6-4.8) X10*3/uL Monocytes # (Manual) 0.8 (0.0-1.2) X10*3/uL Metamyelocytes # 0.8 X10*3/uL Platelet Estimate NORMAL (NORMAL) Plt Morphology Comment NORMAL RBC Morphology NOTED Macrocytosis 1+ (5-14) /OIF Acanthocytes (Spur) 2+ (3-5) /OIF Schistocytes 1+ (0-2) /OIF Smear Tech's Comments Not Reportable Sodium 131 L (135-145) mmol/L Potassium 5.7 H D (3.3-5.1) mmol/L Chloride 94 L (96-108) mmol/L Carbon Dioxide 20 L (22-29) mmol/L Anion Gap 23 H (12-20) BUN 120 H* D (9-16) mg/dL Creatinine 5.23 H* (0.5-1.4) mg/dL Estim Creat Clear Calc 9.4 Estimated GFR 8 Random Glucose 300 H (60-115) mg/dL Lactic Acid (0.5-2.0) mmol/L Calcium 8.4 (8.4-10.2) mg/dL Total Bilirubin 0.3 (0.0-1.0) mg/dL Direct Bilirubin 0.2 (0.0-0.5) mg/dL AST 19 (5-31) U/L ALT 25 (0-31) U/L Alkaline Phosphatase 97 (39-117) U/L Troponin I High Sens (<3.5-17.0) ng/L B-Natriuretic Peptide (<100) pg/mL Total Protein 7.0 (6.5-8.0) g/dL Albumin 3.8 (3.5-5.0) g/dL Lipase 34 (8-78) U/L COVID-19 (MOISES) (Negative) COVID-19 Clin Com 01/31/21 01/31/21 01/31/21 Range/Units 13:09 13:09 13:44 WBC (4.8-10.8) X10*3/uL RBC (4.20-5.50) X10*6/uL Hgb (12.0-16.0) g/dl Hct (37-47) % MCV (80-98) fL MCH (27.0-33.0) pg MCHC (31.0-35.0) g/dl RDW (11.0-16.0) % Plt Count (160-400) X10*3/uL MPV (9.4-12.3) fL Immature Gran % (Auto) Neut % (Auto) Lymph % (Auto) [facility] [place] [facility] % (Auto) Eos % (Auto) Baso % (Auto) Lymph # (Auto) [facility] # (Auto) Eos # (Auto) Baso # (Auto) Abs Immat Gran (auto) Absolute Neuts (auto) Absolute Nucleated RBC (0.0-0.012) X10*3/uL Nucleated RBC % (auto) (0.0-0.2) /100WBC Neutrophils % (Manual) (45-73) % Band Neutrophils % (3-5) % Lymphocytes % (Manual) (20-40) % Monocytes % (Manual) (2-11) % Metamyelocytes % % Abs Neuts (Manual) (2.2-7.9) X10*3/uL Lymphocytes # (Manual) (0.6-4.8) X10*3/uL Monocytes # (Manual) (0.0-1.2) X10*3/uL Metamyelocytes # X10*3/uL Platelet Estimate (NORMAL) Plt Morphology Comment RBC Morphology Macrocytosis /OIF Acanthocytes (Spur) /OIF Schistocytes /OIF Smear Tech's Comments Sodium (135-145) mmol/L Potassium (3.3-5.1) mmol/L Chloride (96-108) mmol/L Carbon Dioxide (22-29) mmol/L Anion Gap (12-20) BUN (9-16) mg/dL Creatinine (0.5-1.4) mg/dL Estim Creat Clear Calc Estimated GFR Random Glucose (60-115) mg/dL Lactic Acid 0.9 (0.5-2.0) mmol/L Calcium (8.4-10.2) mg/dL Total Bilirubin (0.0-1.0) mg/dL Direct Bilirubin (0.0-0.5) mg/dL AST (5-31) U/L ALT (0-31) U/L Alkaline Phosphatase (39-117) U/L Troponin I High Sens 409.0 H* D (<3.5-17.0) ng/L B-Natriuretic Peptide 1382 H (<100) pg/mL Total Protein (6.5-8.0) g/dL Albumin (3.5-5.0) g/dL Lipase (8-78) U/L COVID-19 (MOISES) Negative (Negative) COVID-19 Clin Com See Note Imaging Data Chest x-ray: Radiologist's impression: Mild pulmonary edema ECG Data Interpretation: normal sinus rhythm at 82 beats per minutes, left axis deviation, nonspecific ST-T changes, no change from old EKG. Critical Care Time Critical Care Time Critical Care Time: Yes Total Critical Care Time: 60 Attestation: I spent 60 minutes providing critical care service to the patient, this including time spent at the bedside to evaluate the patient, reassess the patient, monitoring vital signs, review labs, and radiographic studies, counseling the patient/family, discussing the case with consultants, disposition the patient. Discharge Plan Discharge Clinical Impression: ESRD (end stage renal disease), Congestive heart failure, Hypertensive emergency Patient Disposition: [facility] Transfer Details: to [facility] Prescriptions: No Action blood sugar diagnostic [FreeStyle Lite Strips] Strip 1 strip miscellaneous QID Qty: 350 RF: 2 bumetanide 1 mg tablet 1 mg PO BID Qty: 60 RF: 4 clonidine HCl 0.1 mg tablet 1 tab PO BID RF: 0 pravastatin 40 mg tablet 1 tab PO BEDTIME RF: 0 quetiapine 200 mg tablet 1 tab PO BEDTIME RF: 0 trazodone 100 mg tablet 1 tab PO BEDTIME RF: 0 warfarin 5 mg tablet 1 tab PO DAILY RF: 0 lisinopril 30 mg tablet 1 tab PO BEDTIME RF: 0 omeprazole 20 mg capsule,delayed release(DR/EC) 1 cap PO DAILY RF: 0 Levemir U-100 Insulin 100 unit/mL solution 10 unit subcut BEDTIME RF: 0 Basaglar KwikPen U-100 Insulin 100 unit/mL (3 mL) insulin pen 10 unit subcut DAILY@1700 RF: 0 cholecalciferol (vitamin D3) 50 mcg (2,000 unit) capsule 1 cap PO DAILY RF: 0 amlodipine 10 mg tablet 1 tab PO DAILY RF: 0 insulin aspart U-100 [Novolog U-100 Insulin aspart] 100 unit/mL solution See Protocol unit subcut TID RF: 0 diphenhydramine HCl [Banophen] 25 mg capsule 2 cap PO DAILY PRN (Reason: Allergic Symptoms) RF: 0 carvedilol 12.5 mg tablet 25 mg PO BID RF: 0 Lantus Solostar U-100 Insulin 100 unit/mL (3 mL) insulin pen 22 - 26 unit subcut BEDTIME RF: 0 (DME) insulin syringe-needle U-100 0.3 mL 31 gauge x 5/16 syringe See Rx Instructions ea .ROUTE .MEDSUPPLY Qty: 10 RF: 0
[2021-01-31] MEDS: Albuterol/Iprat 2.5/0.5MG 3 ML AMPUL.NEB INHALE (12:15)
[2021-01-31] MEDS: Furosemide 40 MG/4 ML VIAL IVPUSH (13:10)
[2021-01-31 13:19] LABS: Hematocrit 30.7 % (37-47); Hemoglobin 10.4 g/dl (12.0-16.0); Mean Corpuscular HGB Conc 33.9 g/dl (31.0-35.0); Mean Corpuscular Hemoglobin 31.3 pg (27.0-33.0); Mean Corpuscular Volume 92.5 fL (80-98); Platelet Count 219 X10*3/uL (160-400); Red Blood Count 3.32 X10*6/uL (4.20-5.50); Red Cell Distribution Width 15.4 % (11.0-16.0)
[2021-01-31] MEDS: Nitroglycerin 2 % Oint 1 GM Packet 0.5 INCH TRANSDERMA (13:26)
[2021-01-31 13:32] LABS: White Blood Count 41.2 X10*3/uL (4.8-10.8)
[2021-01-31 13:37] LABS: Lactic Acid 0.9 mmol/L (0.5-2.0)
[2021-01-31 13:44] LABS: Alanine Aminotransferase 25 U/L (0-31); Albumin Level 3.8 g/dL (3.5-5.0); Alkaline Phosphatase 97 U/L (39-117); Aspartate Amino Transferase 19 U/L (5-31); Bilirubin Direct 0.2 mg/dL (0.0-0.5); Bilirubin Total 0.3 mg/dL (0.0-1.0)
[2021-01-31 13:45] LABS: Anion Gap 23 (12-20); Blood Urea Nitrogen 120 mg/dL (9-16); Calcium 8.4 mg/dL (8.4-10.2); Carbon Dioxide 20 mmol/L (22-29); Chloride 94 mmol/L (96-108); Creatinine Clr Calc Pharmacy 9.4; Estimated Glomerular Filt Rate 8; Glucose Random 300 mg/dL (60-115); Lipase 34 U/L (8-78); Potassium 5.7 mmol/L (3.3-5.1); Sodium 131 mmol/L (135-145)
[2021-01-31 13:50] LABS: Band Neutrophils Percent 2 % (3-5); Lymphocytes Absolute Manual 2.1 X10*3/uL (0.6-4.8); Lymphocytes Percent Manual 5 % (20-40); Metamyelocytes Absolute 0.8 X10*3/uL; Metamyelocytes Percent 2 %; Monocytes Absolute Manual 0.8 X10*3/uL (0.0-1.2); Monocytes Percent Manual 2 % (2-11); Neutrophils Absolute Manual 37.5 X10*3/uL (2.2-7.9)
[2021-01-31 13:51] LABS: B Type Natriuretic Peptide 1382 pg/mL (<100)
[2021-01-31 13:52] LABS: Macrocytosis 1+ (5-14) /OIF; RBC Morphology NOTED
[2021-01-31 14:00] LABS: Acanthocytes 2+ (3-5) /OIF
[2021-01-31 14:02] LABS: Platelet Estimate NORMAL (NORMAL); Platelet Morphology Comment NORMAL; Schistocytes 1+ (0-2) /OIF
[2021-01-31 14:06] LABS: COVID-19 Test Negative (Negative)
[2021-01-31 14:31] LABS: Neutrophils Percent Manual 89 % (45-73)
--- NOTE | 2021-01-31 15:06 | PM.CNNEP ---
History of Present Illness Reason for Consult Consult date: 01/31/21 Reason for consult: ESRD Management and Hypertensive Emergency Requesting physician: John Espino Chief Complaint Chief complaint: shortness of breath History of Present Illness Narrative: Ms. Mine Guallpa is a 60-year-old female with past medical history of ESRD (HD MWF by PC at [facility]), Secondary Hyperparathyroidism, Anemia of Renal Disease, T2DM, HTN, who originally presented to her dialysis unit. She arrived in respiratory distress, since about yesterday. She was hypoxic on room air. Her dialysis team felt she was too unstable to start dialysis. 911 was called and she was brought to [facility]. Here, she is hypertensive to >200s systolic. She had pulmonary edema, mild hyperkalemia. On my assessment in the ED, she is on BiPAP and will be sent ot ICU on NTG gtt and BIPAP. She will require emergent HD for hypertensive emergency leading to flash pulmonary edema. Review of Systems Constitutional: Reports as per [facility] Past Medical History Medical History (Updated 01/31/21 @ 15:15 by Gulshan Delvalle MD) Cellulitis of chest wall CHF (congestive heart failure) Chronic renal failure Diabetes mellitus, type 2 Encounter for screening colonoscopy ESRD (end stage renal disease) Hypertension Seizures Family History Family History Father Arthritis Mother Cancer Diabetes Brother No problems noted. Sister No problems noted. Sister No problems noted. Son No problems noted. Son No problems noted. Daughter No problems noted. Daughter No problems noted. Daughter Thyroid condition Surgical History Surgical History H/O section H/O removal of cyst History of carpal tunnel surgery of left wrist History of phacoemulsification of cataract of right eye with intraocular lens implantation Social History Social History Household Members: Family Housing: House Do you presently have visiting nurse or other home services: Yes ([employer]) Alcohol intake: never Patient Tobacco Use Status: Never used Tobacco Advance Directives: Yes Advance Directives on File: Yes Advance Directives Date on File: 06/29/20 Patient : No service: No Meds Allergies Allergy/AdvReac Type Severity Reaction Status Date / Time heparin [HEPARIN] Allergy Severe HEPARIN-INDUCED Verified 01/17/21 18:57 THROMBOCYTOPENIA adhesive tape [ADHESIVE TAPE] Allergy Intermediate LOCALIZED Verified 01/17/21 18:57 BLISTER morphine [MORPHINE] Allergy Intermediate GI UPSET Verified 01/17/21 18:57 warfarin Allergy Mild Unknown Verified 01/17/21 18:57 Active Medications: Current Medications Generic Name Dose Route Start Last Admin Trade Name Freq PRN Reason Stop Dose Admin Nitroglycerin/Dextrose 100 mg in 250 mls @ 0 mls/hr 01/31/21 15:00 IVCONT .Q0M [facility] Protocol Per Protocol Home Medications Medication Instructions Recorded Confirmed Last Taken Type insulin syringe-needle U-100 0.3 #10 ea 06/03/20 06/03/20 1 Day Ago History mL 31 gauge x 12/12 ~06/28/20 Basaglar KwikPen U-100 Insulin 10 unit SUBCUT QPM 01/17/21 01/17/21 Unknown History Levemir U-100 Insulin 26 unit SUBCUT DAILY 01/17/21 01/17/21 Unknown History cholecalciferol (vitamin D3) 1 cap PO DAILY 01/17/21 01/17/21 Unknown History clonidine HCl 1 tab PO BID 01/17/21 01/17/21 Unknown History lisinopril 1 tab PO BEDTIME 01/17/21 01/17/21 Unknown History omeprazole 1 cap PO DAILY 01/17/21 01/17/21 Unknown History pravastatin 1 tab PO BEDTIME 01/17/21 01/17/21 Unknown History quetiapine 1 tab PO BEDTIME 01/17/21 01/17/21 Unknown History trazodone 1 tab PO BEDTIME 01/17/21 01/17/21 Unknown History warfarin 1 tab PO DAILY 01/17/21 01/17/21 Unknown History Physical Exam Vital Signs: Last Vital Signs Temp 97.7 F 01/31/21 11:56 Pulse 93 01/31/21 13:41 Resp 17 01/31/21 14:56 BP 179/80 H 01/31/21 13:41 Pulse Ox 100 01/31/21 13:41 Oxygen Flow Rate 8 01/31/21 11:56 Body Mass Index 29.9 Const Other: Tachypenic. BIPAP. Chest Chest palpation & inspection: normal inspection of the chest Resp Other: Crackles at both bases. Cardio Rate: tachycardic GI Palpation (GI): Soft to palpation Extrem Other: Trace pretibial edema Results Lab Results Result Diagrams: 01/31/21 13:09 01/31/21 13:09 Lab results: Chemistry 01/31/21 13:09 Sodium 131 L Potassium 5.7 H D Carbon Dioxide 20 L BUN 120 H* D Creatinine 5.23 H* Calcium 8.4 Hematology 01/31/21 13:09 WBC 41.2 H* Hgb 10.4 L Plt Count 219 D Assessment and Plan (1) DMII (diabetes mellitus, type 2): Status: Acute (2) Hypertensive urgency: Status: Acute (3) Flash pulmonary edema: Status: Acute (4) ESRD (end stage renal disease): Status: Acute Ms. Mine Guallpa is a 60-year-old female with past medical history of ESRD (HD MWF by PC at [facility]), Secondary Hyperparathyroidism, Anemia of Renal Disease, T2DM, HTN, who originally presented to her dialysis unit. She arrived in respiratory distress, since about yesterday. She was hypoxic on room air. Her dialysis team felt she was too unstable to start dialysis. 911 was called and she was brought to [facility]. Here, she is hypertensive to >200s systolic. She had pulmonary edema, mild hyperkalemia. Plan: - 3 hours of HD tonight to UF about 3L atleast - HD against 2K bath - will then placed on a MWF schedule - NTG for now to temporize flash pulm edema and HTN emergency - Permcath protection - monitor leukocytosis, may need septic work up given her permcath. - Tsat 71, Ferritin 1135 Hgb 9s, monitor - PTH 142, Vit D 28, Phos 4-5, continue sevelamer 800mg TID and Renal restricted diet please Procedures Date of Service Date of Service: 01/31/21
--- NOTE | 2021-01-31 15:57 | PC.NURSE ---
Pt med rec completed by list pt provided- does not appear to be updated based on fill history. Spoke with Janice from pharmacy to aid in correct completion of med rec.
--- NOTE | 2021-01-31 16:35 | W.PM.CCCN ---
History of Present Illness Data of Consult Service Date: 01/31/21 Requesting physician: John Espino Primary Care Provider: None Physician HPI Reason for consult: acute pulmonary edema 60-year-old insulin-dependent type 2 diabetic and hypertensive on 3 times weekly dialysis and on schedule but presented for dialysis today and developed acute respiratory distress consistent with acute pulmonary edema and instead of dialysis was transfer to the emergency room where she was placed on BiPAP nitrates and gradually respiratory distress resolved initial troponin was over 400 of course with an elevated BNP of 1300 but I did bedside echocardiography which shows clean pericardium possibly some thickening of the parietal pericardium subjectively of but no primary valve disease and globally normal systolic wall motion so there is no segmental wall motion abnormality but she has been having a clear-cut pattern of of on again off again chest pressure and she said in the hospital she responded to nitrates but was not given a prescription for home Review of Systems Review of Systems: Yes all other systems are reviewed and are negative PMFSH Past Medical History Medical History (Updated 01/31/21 @ 16:46 by Laurita Jonas MD) Cellulitis of chest wall CHF (congestive heart failure) Chronic renal failure Diabetes mellitus, type 2 Encounter for screening colonoscopy ESRD (end stage renal disease) Hypertension Seizures Family History Family History Father Arthritis Mother Cancer Diabetes Brother No problems noted. Sister No problems noted. Sister No problems noted. Son No problems noted. Son No problems noted. Daughter No problems noted. Daughter No problems noted. Daughter Thyroid condition Surgical History Surgical History H/O section H/O removal of cyst History of carpal tunnel surgery of left wrist History of phacoemulsification of cataract of right eye with intraocular lens implantation Social History Social History Household Members: Family Housing: House Do you presently have visiting nurse or other home services: Yes ([employer]) Alcohol intake: never Patient Tobacco Use Status: Never used Tobacco Advance Directives: Yes Advance Directives on File: Yes Advance Directives Date on File: 06/29/20 Patient : No service: No Meds Allergies Allergy/AdvReac Type Severity Reaction Status Date / Time heparin [HEPARIN] Allergy Severe HEPARIN-INDUCED Verified 01/17/21 18:57 THROMBOCYTOPENIA adhesive tape [ADHESIVE TAPE] Allergy Intermediate LOCALIZED Verified 01/17/21 18:57 BLISTER morphine [MORPHINE] Allergy Intermediate GI UPSET Verified 01/17/21 18:57 warfarin Allergy Mild Unknown Verified 01/17/21 18:57 Active Medications: Current Medications Generic Name Dose Route Start Last Admin Trade Name Freq PRN Reason Stop Dose Admin Nitroglycerin/Dextrose 100 mg in 250 mls @ 0 mls/hr 01/31/21 15:00 IVCONT .Q0M ASHA Protocol Per Protocol Heparin Sodium/Sodium Chloride 25,000 unit in 250 mls @ 0 mls/hr 01/31/21 16:30 IVCONT .Q0M ASHA Protocol Per Protocol Home Medications Medication Instructions Recorded Confirmed Last Taken Type insulin syringe-needle U-100 0.3 #10 ea 06/03/20 06/03/20 1 Day Ago History mL 31 gauge x 12/12 ~06/28/20 Basaglar KwikPen U-100 Insulin 10 unit SUBCUT DAILY@1700 01/17/21 01/31/21 Unknown History Levemir U-100 Insulin 10 unit SUBCUT BEDTIME 01/17/21 01/31/21 Unknown History cholecalciferol (vitamin D3) 1 cap PO DAILY 01/17/21 01/31/21 Unknown History clonidine HCl 1 tab PO BID 01/17/21 01/31/21 Unknown History lisinopril 1 tab PO BEDTIME 01/17/21 01/31/21 Unknown History omeprazole 1 cap PO DAILY 01/17/21 01/31/21 Unknown History pravastatin 1 tab PO BEDTIME 01/17/21 01/31/21 Unknown History quetiapine 1 tab PO BEDTIME 01/17/21 01/31/21 Unknown History trazodone 1 tab PO BEDTIME 01/17/21 01/31/21 Unknown History warfarin 1 tab PO DAILY 01/17/21 01/31/21 Unknown History amlodipine 1 tab PO DAILY 01/31/21 01/31/21 Unknown History carvedilol 25 mg PO BID 01/31/21 01/31/21 Unknown History diphenhydramine HCl [Banophen] 2 cap PO DAILY PRN 01/31/21 01/31/21 Unknown History insulin aspart U-100 [Novolog See Protocol SUBCUT TID 01/31/21 01/31/21 Unknown History U-100 Insulin aspart] insulin glargine [Lantus Solostar 22 - 26 unit SUBCUT BEDTIME 01/31/21 Unknown History U-100 Insulin] Physical Exam Vital Signs: Vital Signs: Last Vital Signs Temp 98.7 F 01/31/21 15:49 Pulse 88 01/31/21 15:49 Resp 20 01/31/21 15:49 BP 159/88 H 01/31/21 15:49 Pulse Ox 102 H 01/31/21 15:49 Oxygen Flow Rate 8 01/31/21 11:56 Body Mass Index 29.9 still on BiPAP with mild respiratory distress with diaphragmatic use of for expiration which is somewhat prolonged and rhonchorous awake alert and nonfocal neurologically cardiac exam via echo shows preserved systolic wall motion and IVC diameter is normal with inspiratory collapse so this is not primarily fluid overload and initial chest x-ray was clean abdomen benign no organomegaly in good bowel sounds no significant peripheral edema but clearly she is acidemic and azotemic of clearly under dialyzed and definitely in need of a dialysis treatment but no signs of fluid overload so it does not appear to be emergent Results Labs CBC & Chem 7: 01/31/21 13:09 01/31/21 13:09 Labs: Short CBC 01/31/21 Range/Units 13:09 WBC 41.2 H* (4.8-10.8) X10*3/uL Hgb 10.4 L (12.0-16.0) g/dl Hct 30.7 L (37-47) % Plt Count 219 D (160-400) X10*3/uL BMP 01/31/21 13:09 Sodium 131 L Potassium 5.7 H D Chloride 94 L Carbon Dioxide 20 L BUN 120 H* D Creatinine 5.23 H* Calcium 8.4 Liver Function 01/31/21 Range/Units 13:09 Total Bilirubin 0.3 (0.0-1.0) mg/dL Direct Bilirubin 0.2 (0.0-0.5) mg/dL AST 19 (5-31) U/L ALT 25 (0-31) U/L Alkaline Phosphatase 97 (39-117) U/L Albumin 3.8 (3.5-5.0) g/dL Assessment and Plan (1) Congestive heart failure: Qualifiers: Heart failure chronicity: acute on chronic Heart failure type: unspecified Qualified Code(s): I50.9 - Heart failure, unspecified Status: Acute (2) ESRD (end stage renal disease): Status: Acute (3) Flash pulmonary edema: Status: Acute (4) DMII (diabetes mellitus, type 2): Status: Acute (5) 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: Status: Acute (6) Neutrophilic leukocytosis: Status: Acute (7) Elevated troponin I level: Status: Acute given the high probability for coronary disease and this individual with a concerning pattern of increasing chest pressure and shortness of breath not withstanding our meeting this schedule for complete dialyses and not displaying any signs of fluid overload I believe that this is an unstable ischemic syndrome and would be better served in a tertiary institution with cardiac laboratory scientist availability and and of course to proceed with hemodialysis in that institution today and for the sake of stability I would give her sublingual aspirin as well as IV heparin and possibly maintain her on BiPAP for transfer
[2021-01-31] MEDS: Aspirin Enteric Coated 81 MG TABLET.DR PO (17:26)
--- NOTE | 2021-01-31 17:35 | PC.NURSE ---
pt accepted at [facility] 5 room 2 nurse-nurse [phone]
--- NOTE | 2021-01-31 18:10 | PC.NURSE ---
Report given to receiving nurse at [facility]. (SANDRA Minor). Pt's daughter (Cierra) was notified by this auto service writer.
== END 2021-01-31 13:19 | disposition short-term general hospital (02) ==
PROVIDERS: Emergency Provider Emergency Medicine
DX: I16.1 Hypertensive emergency (principal); I13.2 Hypertensive heart and chronic kidney disease with heart failure and with stage 5 chronic kidney disease, or end stage renal disease; E11.22 Type 2 diabetes mellitus with diabetic chronic kidney disease; N18.6 End stage renal disease; I50.9 Heart failure, unspecified; R06.02 Shortness of breath; D72.829 Elevated white blood cell count, unspecified; Z79.4 Long term (current) use of insulin; Z79.899 Other long term (current) drug therapy; Z99.2 Dependence on renal dialysis; Z20.822 Contact with and (suspected) exposure to COVID-19
CPT/HCPCS: 36415; 71045; 80048; 80076; 83605; 83690; 83880; 84484; 85007; 85027; 87040; 87635; 93005; 94640; 94660; 96374; 99285; 99291; J1940